=== PATIENT | male | born 1950 | race Caucasian/White ===

== ENCOUNTER → 2019-02-11 | Day surgery (SDC) | payer OTHER ==
--- NOTE | 2019-02-09 16:17 | RAD REPORT ---
EXAM DESCRIPTION: RAD - Chest Pa And Lat (2 Views) - 02/09/2019 4:10 pm CLINICAL HISTORY: Preop chest, pending soft tissue wound treatment COMPARISON: None. TECHNIQUE: PA and lateral views of the chest were obtained. FINDINGS: The lungs are clear of a peripheral mass or consolidation. Interstitial markings are promi nent suspected to be baseline. No comparison is available. Left hemidiaphragm elevation is present. Heart size is normal and central vasculature is within normal limits. No pleural effusion or pneumot horax seen. No acute bony finding noted. No aortic abnormality. IMPRESSION: Prominent interstitial pattern throughout the lung wise most likely chronic interstiti al lung disease. No focal mass or consolidation.
[2019-02-09 16:20] LABS: Absolute Lymphocytes (CBC) 1.9 K/uL (0.7-4.9); Basophils % 0.4 % (0-1.3); Hematocrit 46.7 % (39.6-49.0); Lymphocytes % 26.9 % (15.3-44.8); MPV 7.7 fL (7.6-11.3); RBC Red Blood Cell Count 5.28 M/uL (4.33-5.43)
[2019-02-09 16:48] LABS: Potassium 4.2 mmol/L (3.5-5.1)
--- NOTE | 2019-02-10 09:21 | EKG ---
Test Date: 2019-02-09 Test Time: 16:37:44 Loss Prevention Associate: KIMBERLY MEASUREMENT RESULTS: Intervals: Rate: 71 TN: 138 QRSD: 86 QT: 356 QTc: 386 [place]: P: 69 TN: 138 QRS: 60 T: 66 INTERPRETIVE STATEMENTS: Normal sinus rhythm Normal ECG No previous ECG available for comparison Electronically Signed On 02-10-19 09:21:19 CDT by Zaheer Knott
[~2019-02-11] MED LIST: CEFAZOLIN/SWI 1gm 1 GM/10 ML SYR ONE; COLLAGENASE 30 GM OINTMENT TOP ONE; EPHEDRINE SULF 50 MG/ML VIAL ONE; FENTANYL CITR 100 MCG/2 ML ONE; GLYCOPYRROLATE 0.2 MG/ML SYR ONE; HYDROCODONE/APAP 7.5/325 MG TAB ONE; HYDROCODONE/APAP 7.5/325 MG TAB PO ONE; LIDOCAINE 1% MPF 5 ML VIAL ONE; MIDAZOLAM HCL 2 MG/2 ML INJ ONE; NEOSTIGMINE 1 MG/ML -10 ML VIAL ONE; PROPOFOL 200 MG/20 ML VIAL IV ONE; ROCURONIUM 50 MG/5 ML VIAL IV ONE; Ringers Lactate 1,000 ML IV ONE
--- NOTE | 2019-02-11 21:14 | OP ---
Date of Procedure: 02/11/2019 Surgeon: Charlie Arellano MD Preoperative Diagnosis: Nonhealing wound, sacrum. Postoperative Diagnosis: Nonhealing wound, sacrum. Procedure: Wide excision of nonhealing wound, sacrum, 5 x 3 cm, with layered closure. Length of the closure was 5 cm. Estimated Blood Loss: Minimal. Specimen: Nonhealing wound following as above. Anesthesia: General. Complications: None. Patient tolerated the procedure in stable condition and taken to Recovery in good general condition. Description Of Procedure: Patient was brought to the OR and placed in supine position. General anes thesia was begun. Patient was placed in the prone position. Prepped and draped in usual sterile fas hion. Then, 15 blade was used to make a 5 x 3 cm incision to excise this nonhealing wound on the lef t side of the sacrum. Excised down to the deep subcutaneous tissue and sent to Pathology as specimen . Wound irrigated. Bleeding controlled with cautery. Flaps created and 2-0 chromic used for subcut aneous tissue and 3-0 nylon was used to close the skin. Sterile dressing was applied. Patient was a wakened and taken to Recovery in good general condition. Discharge Note: Patient will go to Day Surgery, then home when stable. Disposition: Home. Condition: Stable. Discharge Instructions: Resume home medications and diet. Activity as tolerated. No heavy lifting. Remove outer dressing in 2 days. Shower. Keep wound clean and dry. Follow up in [facility] 1 week. Call for appointment. Tylenol No. 3 one tablet p.o. q.4 p.r.n. pain, Keflex 500 mg p.o . q.6. /MODL Voice ID: [id number] Report ID: [id number]
== END ==
LOC: OR 06:20
PROVIDERS: ATTEND Surgery
PROC: 0JQ90ZZ Repair Buttock Subcutaneous Tissue and Fascia, Open Approach (ICD-10-PCS; 2019-02-11)
PROC: 0JB90ZX Excision of Buttock Subcutaneous Tissue and Fascia, Open Approach, Diagnostic (ICD-10-PCS; principal; 2019-02-11 07:30)
DX: S31.000A Unspecified open wound of lower back and pelvis without penetration into retroperitoneum, initial encounter (principal); X58.XXXA Exposure to other specified factors, initial encounter; L57.0 Actinic keratosis; L85.9 Epidermal thickening, unspecified; L90.5 Scar conditions and fibrosis of skin
CPT/HCPCS: 11403; 12032; 93005; 85025; 80048; 36415; 88304; 71046; J2704; J2710; J2250; J3010; J0690; J3590

== ENCOUNTER 2019-06-28 15:48 | Inpatient (IN) | payer OTHER ==
--- OUTSIDE RECORDS SUMMARY | 2019-06-28 15:54 | XMS REPORT ---
:1950 [facility] [address] [place] [address] Care Team Providers Name Role Phone ADDY STEELE Unavailable Unavailable Payers Payer Name Policy Type Policy Number Effective Date Expiration Date Problems This patient has no known problems. Allergies, Adverse Reactions, Alerts Allergy Allergy Status Severity Reaction(s) Onset Inactive Treating Comments Name Type Date Date Clinician No Known DA Active U 2018-10 Allergies -08 00:00:0 0 No Known DA Active U 2018-06 Allergies -16 00:00:0 0 No Known DA Active U 2017-02 Allergies - 00:00:0 0 Medications This patient has no known medications. Results Test Description Test Time Test Comments Text Results Atomic Results Result Comments BASIC METABOLIC PANEL 2019-06-14 08:05:00 Test Item Value Reference Range Comments SODIUM (test code=NA) 141 mEq/L 134-147 POTASSIUM (test code=K) 3.5 mEq/L 3.4-5.0 CHLORIDE (test code=CL) 108 mEq/L 100-108 CARBON DIOXIDE (test code=CO2) 27 mEq/L 21-33 ANION GAP (test code=GAP) 10 0-20 GLUCOSE (test code=GLU) 90 mg/dL 70-110 BLOOD UREA NITROGEN (test code=BUN) 28 mg/dL 7-18 GLOMERULAR FILTRATION RATE (test 66.2 70-80 Units of measure=ml/min/1.73 code=GFR) m2 CREATININE (test code=CREAT) 1.1 mg/dL 0.6-1.3 CALCIUM (test code=CA) 8.0 mg/dL 8.0-10.5 [id number] 08:05:00 Test Item Value Reference Range Comments PHOSPHOROUS (test code=PHOS) 2.7 MG/DL 2.5-4.9 [id number] 08:05:00 Test Item Value Reference Range Comments MAGNESIUM (test code=MAG) 2.00 mg/dL 1.8-2.4 CBC W/AUTO [id number] 07:06:00 Test Item Value Reference Range Comments WHITE BLOOD CELL (test code=WBC) 10.29 x10 3/uL 4.5-11.0 RED BLOOD CELL (test code=RBC) 4.10 x10 6/uL 4.00-5.60 HEMOGLOBIN (test code=HGB) 12.2 g/dL 12.5-16.9 HEMATOCRIT (test code=HCT) 38.5 % 37.5-50.7 MEAN CELL VOLUME (test code=MCV) 93.9 fL 81.0-99.0 MEAN CELL HGB (test code=MCH) 29.8 pg 27.0-33.0 MEAN CELL HGB CONCETRATION (test code=MCHC) 31.7 g/dL 33.0-37.0 RED CELL DISTRIBUTION WIDTH CV (test 15.1 % 11.5-14.5 code=RDW) RED CELL DISTRIBUTION WIDTH SD (test 50.9 fL 37.0-54.0 code=RDW-SD) PLATELET COUNT (test code=PLT) 256 x10 3/uL 150-400 MEAN PLATELET VOLUME (test code=MPV) 10.1 fL 7.0-9.0 NEUTROPHIL % (test code=NT%) 77.3 % 56.0-77.0 IMMATURE GRANULOCYTE % (test code=IG%) 0.6 % 0.0-2.0 LYMPHOCYTE % (test code=LY%) 13.1 % 14.0-32.0 MONOCYTE % (test code=MO%) 7.8 % 4.8-9.0 EOSINOPHIL % (test code=EO%) 1.1 % 0.3-3.7 BASOPHIL % (test code=BA%) 0.1 % 0.0-2.0 NUCLEATED RBC % (test code=NRBC%) 0.0 % 0-0 NEUTROPHIL # (test code=NT#) 7.96 x10 3/uL 2.0-7.6 IMMATURE GRANULOCYTE # (test code=IG#) 0.06 x10 3/uL 0.00-0.03 LYMPHOCYTE # (test code=LY#) 1.35 x10 3/uL 1.0-3.8 MONOCYTE # (test code=MO#) 0.80 x10 3/uL 0.1-0.8 EOSINOPHIL # (test code=EO#) 0.11 x10 3/uL 0.0-0.2 BASOPHIL # (test code=BA#) 0.01 x10 3/uL 0.0-0.2 NUCLEATED RBC # (test code=NRBC#) 0.00 x10 3/uL 0.0-0.1 MANUAL DIFF REQUIRED (test code=MDIFF) NO BASIC METABOLIC [id number] 08:27:00 Test Item Value Reference Range Comments SODIUM (test code=NA) 137 mEq/L 134-147 POTASSIUM (test code=K) 4.3 mEq/L 3.4-5.0 CHLORIDE (test code=CL) 106 mEq/L 100-108 CARBON DIOXIDE (test code=CO2) 23 mEq/L 21-33 ANION GAP (test code=GAP) 12 0-20 GLUCOSE (test code=GLU) 86 mg/dL 70-110 BLOOD UREA NITROGEN (test 25 mg/dL 7-18 code=BUN) GLOMERULAR FILTRATION RATE 66.2 70-80 Units of measure=ml/min/1.73 (test code=GFR) m2 CREATININE (test code=CREAT) 1.1 mg/dL 0.6-1.3 CALCIUM (test code=CA) 8.0 mg/dL 8.0-10.5 [id number] 08:27:00 Test Item Value Reference Range Comments PHOSPHOROUS (test code=PHOS) 2.1 MG/DL 2.5-4.9 [id number] 08:27:00 Test Item Value Reference Range Comments MAGNESIUM (test code=MAG) 1.80 mg/dL 1.8-2.4 CBC W/AUTO [id number] 07:27:00 Test Item Value Reference Range Comments WHITE BLOOD CELL (test code=WBC) 11.69 x10 3/uL 4.5-11.0 RED BLOOD CELL (test code=RBC) 4.38 x10 6/uL 4.00-5.60 HEMOGLOBIN (test code=HGB) 13.1 g/dL 12.5-16.9 HEMATOCRIT (test code=HCT) 40.5 % 37.5-50.7 MEAN CELL VOLUME (test code=MCV) 92.5 fL 81.0-99.0 MEAN CELL HGB (test code=MCH) 29.9 pg 27.0-33.0 MEAN CELL HGB CONCETRATION (test code=MCHC) 32.3 g/dL 33.0-37.0 RED CELL DISTRIBUTION WIDTH CV (test 14.8 % 11.5-14.5 code=RDW) RED CELL DISTRIBUTION WIDTH SD (test 49.4 fL 37.0-54.0 code=RDW-SD) PLATELET COUNT (test code=PLT) 240 x10 3/uL 150-400 MEAN PLATELET VOLUME (test code=MPV) 10.1 fL 7.0-9.0 NEUTROPHIL % (test code=NT%) 82.5 % 56.0-77.0 IMMATURE GRANULOCYTE % (test code=IG%) 0.4 % 0.0-2.0 LYMPHOCYTE % (test code=LY%) 10.4 % 14.0-32.0 MONOCYTE % (test code=MO%) 6.2 % 4.8-9.0 EOSINOPHIL % (test code=EO%) 0.4 % 0.3-3.7 BASOPHIL % (test code=BA%) 0.1 % 0.0-2.0 NUCLEATED RBC % (test code=NRBC%) 0.0 % 0-0 NEUTROPHIL # (test code=NT#) 9.63 x10 3/uL 2.0-7.6 IMMATURE GRANULOCYTE # (test code=IG#) 0.05 x10 3/uL 0.00-0.03 LYMPHOCYTE # (test code=LY#) 1.22 x10 3/uL 1.0-3.8 MONOCYTE # (test code=MO#) 0.73 x10 3/uL 0.1-0.8 EOSINOPHIL # (test code=EO#) 0.05 x10 3/uL 0.0-0.2 BASOPHIL # (test code=BA#) 0.01 x10 3/uL 0.0-0.2 NUCLEATED RBC # (test code=NRBC#) 0.00 x10 3/uL 0.0-0.1 MANUAL DIFF REQUIRED (test code=MDIFF) NO COMPREHENSIVE METABOLIC [id number] 08:31:00 Test Item Value Reference Range Comments SODIUM (test code=NA) 139 mEq/L 134-147 POTASSIUM (test code=K) 4.0 mEq/L 3.4-5.0 CHLORIDE (test code=CL) 102 mEq/L 100-108 CARBON DIOXIDE (test code=CO2) 34 mEq/L 21-33 ANION GAP (test code=GAP) 7 0-20 GLUCOSE (test code=GLU) 84 mg/dL 70-110 BLOOD UREA NITROGEN (test 35 mg/dL 7-18 code=BUN) GLOMERULAR FILTRATION RATE 66.2 70-80 Units of (test code=GFR) measure=ml/min/1.73 m2 CREATININE (test code=CREAT) 1.1 mg/dL 0.6-1.3 TOTAL PROTEIN (test code=PROT) 5.7 g/dL 6.4-8.2 ALBUMIN (test code=ALB) 2.80 g/dL 3.4-5.0 CALCIUM (test code=CA) 8.1 mg/dL 8.0-10.5 BILIRUBIN TOTAL (test 1.0 MG/DL <1.5 code=BILT) SGOT/AST (test code=AST) 49 IUnit/L 15-37 SGPT/ALT (test code=ALT) 94 IUnit/L 15-65 ALKALINE PHOSPHATASE TOTAL 43 IUnit/L 20-125 (test code=ALKP) [id number] 08:31:00 Test Item Value Reference Range Comments PHOSPHOROUS (test code=PHOS) 2.1 MG/DL 2.5-4.9 [id number] 08:31:00 Test Item Value Reference Range Comments MAGNESIUM (test code=MAG) 2.00 mg/dL 1.8-2.4 - XR CHEST 1 [id number] 08:31:00 FAX: Flaquito Doty MD [place]: St: ADM FAX: Gregg Martinez [phone] FAX: Bhupinder Avila MD [phone] Name: YASH CLINTON [facility] Talha : 1950 Age/S: 69/M [address] [place] [address] Unit #: [id number] Loc: G.[address] [place] [address] Phys: Flaquito Doty MD Acct: [id number] Dis Date: Status: ADM IN PHONE #: [phone] Exam Date: 2018 FAX #: [phone] Reason: pneumonia EXAMS: CPT CODE: [id number] XR CHEST 1 V 23676 Patient: YASH CLINTON. : 1950; Age: 69 years; Gender: Male. MR: [id number]. Ordering physician: Flaquito Doty MD. PORTABLE CHEST AP: HISTORY: Pneumonia. COMPARISON : Chest x-ray 06/11/2019. FINDINGS: Portable frontal view of the chest was obtained. Elevation of left hemidiaphragm again noted. Emphysema is again noted. Bilateral coarse interstitial prominence also again noted, likely chronic. No infiltrate. Atherosclerotic calcification. The cardiomediastinal silhouette and pulmonary vasculature are unremarkable. The partially visualized upper abdomen is unremarkable. IMPRESSION: No infiltrate. Chronic changes as described. SL: [id number] at 0831 Reported and signed by : Luis Rojo M.D. CC: Flaquito Doty MD; Gregg Coulter MD; Bhupinder Avila MD Technologist: Freda Christianson, RT (R); Meg Suh RT(R) Trnscrd Date/Time/By: 06/12/2019 (0831) : By: [email or web address] Orig Print D/T: S: 06/12/2019 (0809) PAGE 1 Signed ReportCBC W/AUTO [id number] 07: 54:00 Test Item Value Reference Range Comments WHITE BLOOD CELL (test code=WBC) 10.35 x10 3/uL 4.5-11.0 RED BLOOD CELL (test code=RBC) 4.16 x10 6/uL 4.00-5.60 HEMOGLOBIN (test code=HGB) 12.3 g/dL 12.5-16.9 HEMATOCRIT (test code=HCT) 38.9 % 37.5-50.7 MEAN CELL VOLUME (test code=MCV) 93.5 fL 81.0-99.0 MEAN CELL HGB (test code=MCH) 29.6 pg 27.0-33.0 MEAN CELL HGB CONCETRATION (test code=MCHC) 31.6 g/dL 33.0-37.0 RED CELL DISTRIBUTION WIDTH CV (test 15.1 % 11.5-14.5 code=RDW) RED CELL DISTRIBUTION WIDTH SD (test 51.6 fL 37.0-54.0 code=RDW-SD) PLATELET COUNT (test code=PLT) 206 x10 3/uL 150-400 MEAN PLATELET VOLUME (test code=MPV) 10.3 fL 7.0-9.0 NEUTROPHIL % (test code=NT%) 76.2 % 56.0-77.0 IMMATURE GRANULOCYTE % (test code=IG%) 0.6 % 0.0-2.0 LYMPHOCYTE % (test code=LY%) 12.9 % 14.0-32.0 MONOCYTE % (test code=MO%) 9.8 % 4.8-9.0 EOSINOPHIL % (test code=EO%) 0.4 % 0.3-3.7 BASOPHIL % (test code=BA%) 0.1 % 0.0-2.0 NUCLEATED RBC % (test code=NRBC%) 0.2 % 0-0 NEUTROPHIL # (test code=NT#) 7.90 x10 3/uL 2.0-7.6 IMMATURE GRANULOCYTE # (test code=IG#) 0.06 x10 3/uL 0.00-0.03 LYMPHOCYTE # (test code=LY#) 1.33 x10 3/uL 1.0-3.8 MONOCYTE # (test code=MO#) 1.01 x10 3/uL 0.1-0.8 EOSINOPHIL # (test code=EO#) 0.04 x10 3/uL 0.0-0.2 BASOPHIL # (test code=BA#) 0.01 x10 3/uL 0.0-0.2 NUCLEATED RBC # (test code=NRBC#) 0.02 x10 3/uL 0.0-0.1 MANUAL DIFF REQUIRED (test code=MDIFF) NO [id number] 15:46:00 Test Item Value Reference Range Comments GLUBED (test code=GLUBED) 96 MG/DL 70-110 Performed by 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 [facility] THROMBOPLASTIN TIME [id number] 14:57:00 Test Item Value Reference Range Comments THROMBOPLASTIN TIME PARTIAL 64.6 Seconds 25.0-39.5 Therapeutic Range: (test code=PTT) 50.4 - 88.3 Seconds Effective 10/20/2018 - XR CHEST 1 [id number] 08:29:00 FAX: Flaquito Doty MD [place]: St: ADM FAX: Richardson HawkinslulutashaneftalyGregg [phone] FAX: Bhupinder Avila MD [phone] Name: YASH CLINTON [facility] : 1950 Age/S: 69/M [address] [place] [address] Unit #: [id number] Loc: G.[address] [address] Phys: Flaquito Doty MD Acct: [id number] Dis Date: Status: ADM IN PHONE #: [phone] Exam Date: 2018 0559 FAX #: [phone] Reason: pneumonia EXAMS: CPT CODE: [id number] XR CHEST 1 V 37918 Clinical Indication: Pneumonia. Comparison: 06/10/2019. Impression: Chest, single view. Persistent bilateral airspace opacities representing edema or pneumonia, not significantly changed since the prior exam. Cardiac silhouetteis prominent. No pleural effusion or pneumothorax. SL: [id number] at 0829 Reported and signed by: Latisha Bejarano M.D. CC: Flaquito Doty MD; Gregg Coulter MD; Bhupinder Avila MD Technologist: Neema Rosas, RT(R); Trevon Frances RT(R) Trnscrd Date/Time/By: 06/11/2019 (08) : By: [email or web address] Orig Print D/T: S: 06/11/2019 (0927) PAGE 1 Signed ReportCOMPREHENSIVE METABOLIC [id number] 07:23:00 Test Item Value Reference Range Comments SODIUM (test code=NA) 142 mEq/L 134-147 POTASSIUM (test code=K) 4.7 mEq/L 3.4-5.0 CHLORIDE (test code=CL) 105 mEq/L 100-108 CARBON DIOXIDE (test code=CO2) 32 mEq/L 21-33 ANION GAP (test code=GAP) 10 0-20 GLUCOSE (test code=GLU) 103 mg/dL 70-110 BLOOD UREA NITROGEN (test 45 mg/dL 7-18 code=BUN) GLOMERULAR FILTRATION RATE 66.2 70-80 Units of (test code=GFR) measure=ml/min/1.73 m2 CREATININE (test code=CREAT) 1.1 mg/dL 0.6-1.3 TOTAL PROTEIN (test code=PROT) 5.7 g/dL 6.4-8.2 ALBUMIN (test code=ALB) 2.80 g/dL 3.4-5.0 CALCIUM (test code=CA) 8.5 mg/dL 8.0-10.5 BILIRUBIN TOTAL (test 0.7 MG/DL <1.5 code=BILT) SGOT/AST (test code=AST) 61 IUnit/L 15-37 SGPT/ALT (test code=ALT) 106 IUnit/L 15-65 ALKALINE PHOSPHATASE TOTAL 37 IUnit/L 20-125 (test code=ALKP) [id number] 07:23:00 Test Item Value Reference Range Comments PHOSPHOROUS (test code=PHOS) 3.1 MG/DL 2.5-4.9 [id number] 07:23:00 Test Item Value Reference Range Comments MAGNESIUM (test code=MAG) 2.10 mg/dL 1.8-2.4 THROMBOPLASTIN TIME [id number] 07:11:00 Test Item Value Reference Range Comments THROMBOPLASTIN TIME PARTIAL 81.0 Seconds 25.0-39.5 Therapeutic Range: (test code=PTT) 50.4 - 88.3 Seconds Effective 10/20/2018 CBC W/AUTO [id number] 06:49:00 Test Item Value Reference Range Comments WHITE BLOOD CELL (test code=WBC) 10.16 x10 3/uL 4.5-11.0 RED BLOOD CELL (test code=RBC) 3.93 x10 6/uL 4.00-5.60 HEMOGLOBIN (test code=HGB) 11.8 g/dL 12.5-16.9 HEMATOCRIT (test code=HCT) 36.8 % 37.5-50.7 MEAN CELL VOLUME (test code=MCV) 93.6 fL 81.0-99.0 MEAN CELL HGB (test code=MCH) 30.0 pg 27.0-33.0 MEAN CELL HGB CONCETRATION (test code=MCHC) 32.1 g/dL 33.0-37.0 RED CELL DISTRIBUTION WIDTH CV (test 15.0 % 11.5-14.5 code=RDW) RED CELL DISTRIBUTION WIDTH SD (test 51.3 fL 37.0-54.0 code=RDW-SD) PLATELET COUNT (test code=PLT) 180 x10 3/uL 150-400 MEAN PLATELET VOLUME (test code=MPV) 10.7 fL 7.0-9.0 NEUTROPHIL % (test code=NT%) 83.6 % 56.0-77.0 IMMATURE GRANULOCYTE % (test code=IG%) 0.4 % 0.0-2.0 LYMPHOCYTE % (test code=LY%) 8.3 % 14.0-32.0 MONOCYTE % (test code=MO%) 7.6 % 4.8-9.0 EOSINOPHIL % (test code=EO%) 0.0 % 0.3-3.7 BASOPHIL % (test code=BA%) 0.1 % 0.0-2.0 NUCLEATED RBC % (test code=NRBC%) 0.2 % 0-0 NEUTROPHIL # (test code=NT#) 8.50 x10 3/uL 2.0-7.6 IMMATURE GRANULOCYTE # (test code=IG#) 0.04 x10 3/uL 0.00-0.03 LYMPHOCYTE # (test code=LY#) 0.84 x10 3/uL 1.0-3.8 MONOCYTE # (test code=MO#) 0.77 x10 3/uL 0.1-0.8 EOSINOPHIL # (test code=EO#) 0.00 x10 3/uL 0.0-0.2 BASOPHIL # (test code=BA#) 0.01 x10 3/uL 0.0-0.2 NUCLEATED RBC # (test code=NRBC#) 0.02 x10 3/uL 0.0-0.1 MANUAL DIFF REQUIRED (test code=MDIFF) NO [id number] 06:36:00 Test Item Value Reference Range Comments GLUBED (test code=GLUBED) 95 MG/DL 70-110 Performed by 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 [facility] [id number] 00:19:00 Test Item Value Reference Range Comments GLUBED (test code=GLUBED) 118 MG/DL 70-110 Performed by 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 [facility] THROMBOPLASTIN TIME [id number] 23:15:00 Test Item Value Reference Range Comments THROMBOPLASTIN TIME PARTIAL 81.1 Seconds 25.0-39.5 Therapeutic Range: (test code=PTT) 50.4 - 88.3 Seconds Effective 10/20/2018 [id number] 18:13:00 Test Item Value Reference Range Comments GLUBED (test code=GLUBED) 125 MG/DL 70-110 Performed by 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 [facility] THROMBOPLASTIN TIME [id number] 15:59:00 Test Item Value Reference Range Comments THROMBOPLASTIN TIME PARTIAL 79.3 Seconds 25.0-39.5 Therapeutic Range: (test code=PTT) 50.4 - 88.3 Seconds Effective 10/20/2018 - XR CHEST 1 [id number] 13:48:00 FAX: Flaquito Doty MD [place]: St: ADM FAX: Gregg Martinez [phone] FAX: Bhupinder Avila MD [phone] Name: YASH CLINTON [facility] Talha : 1950 Age/S: 69/M [address] [place] [address] Unit #: [id number] Loc: G.[address] [place] [address] Phys: Flaquito Doty MD Acct: [id number] Dis Date: Status: ADM IN PHONE #: [phone] Exam Date: 2018 1345 FAX #: [phone] Reason: pneumonia EXAMS: CPT CODE: [id number] XR CHEST 1 V 98587 Clinical Indication: Pneumonia. Comparison: 06/09/2019. CT 06/08/2019. Impression: Chest, single view. Stable position of support apparatus. Cardiac silhouette is prominent. Improved aeration of the lung bases. Right apical subpleural nodularity is similar to the prior CT. No pneumothorax. No acute osseous abnormality. SL: [id number] at 4313 Reported and signed by: Latisha Bejarano M.D. CC: Flaquito Doty MD; Gregg Lara MD; Bhupinder Avila MD Technologist: RT Hallie(R) Trnscrd Date/Time/By: 11/2018 (0341) : By: [email or web address] Orig Print D/T: S: 06/10/2019 (5947) PAGE 1 Signed [id number] 12:30:00 Test Item Value Reference Range Comments GLUBED (test code=GLUBED) 142 MG/DL 70-110 Performed by 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 [facility] THROMBOPLASTIN TIME [id number] 08:27:00 Test Item Value Reference Range Comments THROMBOPLASTIN TIME PARTIAL 49.1 Seconds 25.0-39.5 Therapeutic Range: (test code=PTT) 50.4 - 88.3 Seconds Effective 10/20/2018 BASIC METABOLIC [id number] 04:59:00 Test Item Value Reference Range Comments SODIUM (test code=NA) 138 mEq/L 134-147 POTASSIUM (test code=K) 4.7 mEq/L 3.4-5.0 CHLORIDE (test code=CL) 104 mEq/L 100-108 CARBON DIOXIDE (test code=CO2) 30 mEq/L 21-33 ANION GAP (test code=GAP) 9 0-20 GLUCOSE (test code=GLU) 158 mg/dL 70-110 BLOOD UREA NITROGEN (test 46 mg/dL 7-18 code=BUN) GLOMERULAR FILTRATION RATE 54.6 70-80 Units of measure=ml/min/1.73 (test code=GFR) m2 CREATININE (test code=CREAT) 1.3 mg/dL 0.6-1.3 CALCIUM (test code=CA) 8.5 mg/dL 8.0-10.5 [id number] 04:59:00 Test Item Value Reference Range Comments PHOSPHOROUS (test code=PHOS) 3.0 MG/DL 2.5-4.9 [id number] 04:59:00 Test Item Value Reference Range Comments MAGNESIUM (test code=MAG) 2.20 mg/dL 1.8-2.4 CBC W/AUTO [id number] 04:48:00 Test Item Value Reference Range Comments WHITE BLOOD CELL (test code=WBC) 9.37 x10 3/uL 4.5-11.0 RED BLOOD CELL (test code=RBC) 4.12 x10 6/uL 4.00-5.60 HEMOGLOBIN (test code=HGB) 12.1 g/dL 12.5-16.9 HEMATOCRIT (test code=HCT) 38.3 % 37.5-50.7 MEAN CELL VOLUME (test code=MCV) 93.0 fL 81.0-99.0 MEAN CELL HGB (test code=MCH) 29.4 pg 27.0-33.0 MEAN CELL HGB CONCETRATION (test code=MCHC) 31.6 g/dL 33.0-37.0 RED CELL DISTRIBUTION WIDTH CV (test code=RDW) 14.8 % 11.5-14.5 RED CELL DISTRIBUTION WIDTH SD (test 50.3 fL 37.0-54.0 code=RDW-SD) PLATELET COUNT (test code=PLT) 194 x10 3/uL 150-400 MEAN PLATELET VOLUME (test code=MPV) 10.3 fL 7.0-9.0 NEUTROPHIL % (test code=NT%) 90.6 % 56.0-77.0 IMMATURE GRANULOCYTE % (test code=IG%) 0.5 % 0.0-2.0 LYMPHOCYTE % (test code=LY%) 4.7 % 14.0-32.0 MONOCYTE % (test code=MO%) 4.1 % 4.8-9.0 EOSINOPHIL % (test code=EO%) 0.0 % 0.3-3.7 BASOPHIL % (test code=BA%) 0.1 % 0.0-2.0 NUCLEATED RBC % (test code=NRBC%) 0.2 % 0-0 NEUTROPHIL # (test code=NT#) 8.49 x10 3/uL 2.0-7.6 IMMATURE GRANULOCYTE # (test code=IG#) 0.05 x10 3/uL 0.00-0.03 LYMPHOCYTE # (test code=LY#) 0.44 x10 3/uL 1.0-3.8 MONOCYTE # (test code=MO#) 0.38 x10 3/uL 0.1-0.8 EOSINOPHIL # (test code=EO#) 0.00 x10 3/uL 0.0-0.2 BASOPHIL # (test code=BA#) 0.01 x10 3/uL 0.0-0.2 NUCLEATED RBC # (test code=NRBC#) 0.02 x10 3/uL 0.0-0.1 MANUAL DIFF REQUIRED (test code=MDIFF) NO THROMBOPLASTIN TIME [id number] 00:55:00 Test Item Value Reference Range Comments THROMBOPLASTIN TIME PARTIAL 51.3 Seconds 25.0-39.5 Therapeutic Range: (test code=PTT) 50.4 - 88.3 Seconds Effective 10/20/2018 [id number] 00:27:00 Test Item Value Reference Range Comments GLUBED (test code=GLUBED) 124 MG/DL 70-110 Performed by 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 [facility] - XR CHEST 1 [id number] 07:27:00 FAX: Gregg Martinez [place]: St: [facility] FAX: David See [phone] FAX : Bhupinder Avila MD [phone] Name: YASH CLINTON [facility] : 1950 Age/S: 69/M [address] [place] [address] Unit #: [id number] Loc: G.[address] [place] [address] Phys: Miroslava See NP Acct: [id number] Dis Date: Status: ADM IN PHONE #: [phone] Exam Date: 06/09 FAX #: [phone] Reason: RESP FAILURE EXAMS: CPT CODE: [id number] XR CHEST 1 V 36346 1 VIEW CXR. PORTABLE EXAM 5:13 AM HISTORY: Respiratory failure. Shortness of breath. Ventilator patient. COMPARISON: Yesterdays chest X-RAY. Endotracheal tube, NG tube and right IJ central line all stable and apparently well-positioned. Significant improvement in aeration of the right lung compared to yesterday. Mild prominence of pulmonary vessels bilaterally mild persistent interstitial prominence right mid to lower lung. Cardiomediastinal silhouette stable. Bones intact. No definite pleural effusion evident. IMPRESSION: Improving chest at a one day interval. END OF IMPRESSION SL: [id number] at 0727 Reported and signed by: Jenaro Mcclelland M.D. CC: Gregg Coulter MD; Miroslava See STONE SPLITTER; Bhupinder Avila MD Technologist: Neema Rosas RT(Mark) Trnscrd Date/Time/By: 06/09/2019 (0773) : By: Moses Orig Print D/T: S: 06/09/2019 (0718) PAGE 1 Signed ReportARTERIAL BLOOD [id number] 06:32:00 Test Item Value Reference Range Comments ARTERIAL BLOOD GAS PH (test 7.499 7.35-7.45 code=PHA) ARTERIAL BLOOD GAS PCO2 (test 41.6 mmHg 35-45 code=PCO2A) ARTERIAL BLOOD GAS PO2 (test 98 mmHg 80-100 code=PO2A) BICARBONATE TOTAL HCO3 (test 32.8 mmol/L 22.0-26.0 code=HCO3) BASE EXCESS (test code=JACQUELIN) 9.0 mmol/L -4-4 ABG O2 SATURATION (test 98 % 90-100 code=SATA) FIO2 (test code=FIO2A) 40 % ABG DELIVERY (test code=TERRI) Vent ABG VENT MODE (test AC v con code=MODEA) ABG VENT RESP RATE (test 25 /MIN code=RRA) ABG TIDAL VOLUME (test 500 ml code=TVA) ABG PEEP (test code=PEEPA) 5 cmH2O Performed by 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 [facility] ABG TEMPERATURE (test 96.0 F code=TEMPA) ABG SITE (test code=SITEA) L Rad PREDICTED AA GRADIENT (test 61 code=AP) PREDICTED PO2 (test code=OP) 174 a/A RATIO (test code=RATIO) 0.42 TCO2 ARTERIAL (test 34 code=TCO2A) A-A GRADIENT (test 137 code=AAGRADE) BASIC METABOLIC [id number] 04:54:00 Test Item Value Reference Range Comments SODIUM (test code=NA) 137 mEq/L 134-147 POTASSIUM (test code=K) 4.5 mEq/L 3.4-5.0 CHLORIDE (test code=CL) 102 mEq/L 100-108 CARBON DIOXIDE (test code=CO2) 28 mEq/L 21-33 ANION GAP (test code=GAP) 12 0-20 GLUCOSE (test code=GLU) 178 mg/dL 70-110 BLOOD UREA NITROGEN (test 46 mg/dL 7-18 code=BUN) GLOMERULAR FILTRATION RATE 46.3 70-80 Units of measure=ml/min/1.73 (test code=GFR) m2 CREATININE (test code=CREAT) 1.5 mg/dL 0.6-1.3 CALCIUM (test code=CA) 8.4 mg/dL 8.0-10.5 [id number] 04:54:00 Test Item Value Reference Range Comments PHOSPHOROUS (test code=PHOS) 3.0 MG/DL 2.5-4.9 [id number] 04:54:00 Test Item Value Reference Range Comments MAGNESIUM (test code=MAG) 2.50 mg/dL 1.8-2.4 CALCIUM [id number] 04:54:00 Test Item Value Reference Range Comments CALCIUM IONIZED (test code=JOSH) 1.15 MMOL/L 1.12-1.32 BASIC METABOLIC [id number] 04:34:00 Test Item Value Reference Range Comments SODIUM (test code=NA) mEq/L 134-147 POTASSIUM (test code=K) mEq/L 3.4-5.0 CHLORIDE (test code=CL) mEq/L 100-108 CARBON DIOXIDE (test code=CO2) mEq/L 21-33 ANION GAP (test code=GAP) 0-20 GLUCOSE (test code=GLU) mg/dL 70-110 BLOOD UREA NITROGEN (test code=BUN) mg/dL 7-18 GLOMERULAR FILTRATION RATE (test code=GFR) 70-80 CREATININE (test code=CREAT) mg/dL 0.6-1.3 CALCIUM (test code=CA) mg/dL 8.0-10.5 [id number] 04:34:00 Test Item Value Reference Range Comments PHOSPHOROUS (test code=PHOS) MG/DL 2.5-4.9 [id number] 04:34:00 Test Item Value Reference Range Comments MAGNESIUM (test code=MAG) mg/dL 1.8-2.4 CALCIUM [id number] 04:34:00 Test Item Value Reference Range Comments CALCIUM IONIZED (test code=JOSH) 1.15 MMOL/L 1.12-1.32 THROMBOPLASTIN TIME [id number] 04:24:00 Test Item Value Reference Range Comments THROMBOPLASTIN TIME PARTIAL 84.3 Seconds 25.0-39.5 Therapeutic Range: (test code=PTT) 50.4 - 88.3 Seconds Effective 10/20/2018 CBC W/AUTO [id number] 04:12:00 Test Item Value Reference Range Comments WHITE BLOOD CELL (test code=WBC) 7.84 x10 3/uL 4.5-11.0 RED BLOOD CELL (test code=RBC) 4.05 x10 6/uL 4.00-5.60 HEMOGLOBIN (test code=HGB) 12.1 g/dL 12.5-16.9 HEMATOCRIT (test code=HCT) 37.3 % 37.5-50.7 MEAN CELL VOLUME (test code=MCV) 92.1 fL 81.0-99.0 MEAN CELL HGB (test code=MCH) 29.9 pg 27.0-33.0 MEAN CELL HGB CONCETRATION (test code=MCHC) 32.4 g/dL 33.0-37.0 RED CELL DISTRIBUTION WIDTH CV (test code=RDW) 15.0 % 11.5-14.5 RED CELL DISTRIBUTION WIDTH SD (test 49.5 fL 37.0-54.0 code=RDW-SD) PLATELET COUNT (test code=PLT) 188 x10 3/uL 150-400 MEAN PLATELET VOLUME (test code=MPV) 10.6 fL 7.0-9.0 NEUTROPHIL % (test code=NT%) 90.7 % 56.0-77.0 IMMATURE GRANULOCYTE % (test code=IG%) 0.3 % 0.0-2.0 LYMPHOCYTE % (test code=LY%) 4.7 % 14.0-32.0 MONOCYTE % (test code=MO%) 4.3 % 4.8-9.0 EOSINOPHIL % (test code=EO%) 0.0 % 0.3-3.7 BASOPHIL % (test code=BA%) 0.0 % 0.0-2.0 NUCLEATED RBC % (test code=NRBC%) 0.3 % 0-0 NEUTROPHIL # (test code=NT#) 7.11 x10 3/uL 2.0-7.6 IMMATURE GRANULOCYTE # (test code=IG#) 0.02 x10 3/uL 0.00-0.03 LYMPHOCYTE # (test code=LY#) 0.37 x10 3/uL 1.0-3.8 MONOCYTE # (test code=MO#) 0.34 x10 3/uL 0.1-0.8 EOSINOPHIL # (test code=EO#) 0.00 x10 3/uL 0.0-0.2 BASOPHIL # (test code=BA#) 0.00 x10 3/uL 0.0-0.2 NUCLEATED RBC # (test code=NRBC#) 0.02 x10 3/uL 0.0-0.1 MANUAL DIFF REQUIRED (test code=MDIFF) NO [id number] 00:11:00 Test Item Value Reference Range Comments GLUBED (test code=GLUBED) 168 MG/DL 70-110 Performed by 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 [facility] THROMBOPLASTIN TIME [id number] 20:39:00 Test Item Value Reference Range Comments THROMBOPLASTIN TIME PARTIAL 58.1 Seconds 25.0-39.5 Therapeutic Range: (test code=PTT) 50.4 - 88.3 Seconds Effective 10/20/2018 THROMBOPLASTIN TIME [id number] 13:17:00 Test Item Value Reference Range Comments THROMBOPLASTIN TIME PARTIAL 48.6 Seconds 25.0-39.5 Therapeutic Range: (test code=PTT) 50.4 - 88.3 Seconds Effective 10/20/2018 - XR CHEST 1 [id number] 07:24:00 FAX: Gregg Martinez [place]: St: ADM FAX: Bhupinder Avila MD [phone] FAX : Krissy Espana MD Name: YASH CLINTON [facility] [place] : 1950 Age/S: 69/M [address] [place] [address] Unit #: [id number] Loc: G.[address] [address] Phys: Krissy Espana MD Acct: [id number] Dis Date: Status: ADM IN PHONE #: [phone] Exam Date: 06/08 0414 FAX #: [phone] Reason: VENTED PATIENT, FOLLOW- UP EXAMS: CPT CODE: [id number] XR CHEST 1 V 38645 EXAM: CHEST SINGLE VIEW HISTORY: 69-year-old male, ventilated COMPARISON: Chest 06/07/2019 FINDINGS: Increased opacity in the right lung base. Diffuse bilateral interstitial prominence. Probable small right pleural effusion. Elevated left hemidiaphragm. The cardiomediastinal silhouette isstable. Osseous structures are unchanged. Stable position of endotracheal tube, nasogastric tube, and right internal jugular dialysis catheter. IMPRESSION: 1. Increased right basilar opacity. 2. Small right pleural effusion. 3. Bilateral interstitial prominence suggestive of congestion/mild edema. SL: [id number] at 0724 Reported and signed by: Nile Espitia M.D. CC: Gregg Coulter MD; Bhupinder Avila MD; Krissy Espana MD Technologist: Trevon Frances RT(R) Trnscrd Date/Time/By: 09/2018 (0724) : By: [email or web address] Orig Print D/T: S: 06/08/2019 (0727) PAGE 1 Signed ReportACUTE HEPATITIS [id number] 07:12:00 Test Item Value Reference Range Comments AB HEPATITIS A IGM (test code=HAVMAB) NON REACTIVE INDEX NON REACT. AG HEPATITIS B SURFACE (test code=HBSAG) NON REACTIVE INDEX NonReactive AB HEPATITIS B CORE IGM (test NON REACTIVE INDEX NON REACT. code=HBCMAB) AB HEPATITIS C (test code=HCVAB) NON REACTIVE INDEX NON REACT. COMMENTS: At start of hemodialysisAB HEPATITIS B [id number] 07:12:00 Test Item Value Reference Range Comments AB HEPATITIS B SURFACE (test < 3.1 mIU/mL Immunity>9.9 Status of Immunity code=HBSAB) Anti-HBs Level Inconsistent with Immunity 0.0 - 9.9Consistent with Immunity >9.9Performed At: [facility] [id number] [place], [place] [id number] Nilson Aguilar MD Ph:[phone] COMMENTS: At start of hemodialysis- CT ABD PELVIS W/O [id number] 06:02:00 Name: YASH CLINTON [facility] Rachel Benton : 1950 Age/S: 69 / M [address] [place] [address] Blvd Unit #: [id number] Loc: [facility] [id number] Phys: Krissy Espana MD Acct: [id number] Dis Date: Status: ADM IN PHONE #: [phone] Exam Date: 06/08/2019 050 FAX #: [phone] Reason: IRREGULAR CXR EXAMS: CPTCODE: [id number] CT ABD PELVIS W/O CONT 06573 EXAM: CT, CT CHEST ABDOMEN AND PELVIS W/O CONTRAST: 06/08/2019, 0449 hours Clinical Indication: Shortness of breath. COPD. Atrial fibrillation with RVR. Comparison: None TECHNIQUE: Sequential trans-axial images were obtained thru the chest, abdomen and pelvis without iodinated oral or IV contrast. Coronal and sagittal reconstructions wereobtained. CT imaging was performed with exposure control parameters to reduce radiation dose. All CT scans at this location are performed using dose optimization techniques as appropriate to perform exam including the following: * Automated exposure control * Adjustmentof the mA and /or kV according to patient size (this includes techniques or standardized protocols for targeted exams where dose is matched to indication/reason for exam; extremities or head) * Use of iterative reconstruction technique DLP: 859.22 mGy-cmFINDINGS: CT CHEST WITHOUT: LUNG PARENCHYMA AND PLEURA: Emphysematous changes in the lungs bilaterally with prominent interstitial lung markings. Pleural base opacity in the right apical lung anteriorly probable scar. Bilateral lower lobe airspace opacities, worse in the right with small trace pleural effusions. Calcified granuloma in the left lower lobe. There is no pneumothorax. AIRWAYS: The central airway is unremarkable. Endotracheal intubation place, tip at solo. Nasogastric tube in esophagus, tip in stomach.. NON-CONTRAST MEDIASTINUM: Ectatic thoracic aorta. Calcified plaques in the thoracic aorta and coronary arteries. Heart is borderline in size. A right IJ venous catheter in place, tip in right atrium. OSSEOUS STRUCTURES: No acute abnormality seen. VISUALIZED NON-CONTRAST LOWER NECK: No gross abnormalities. CT ABDOMEN PELVIS WITHOUT: NON- CONTRAST ENHANCED SOLID ORGANS: PAGE 1 Signed Report (CONTINUED) Name: YASH CLINTON [facility] Rachel Benton : 1950ge/S: 69 / M [address] [place] [address] Blvd Unit #: [id number] Loc: [place] [address] Phys: Krissy Espana MD Acct: [id number] Dis Date: Status: ADM IN PHONE#: [phone] Exam Date: 06/08/2019 050 FAX #: [phone] Reason:IRREGULAR CXR EXAMS: CPT CODE: [id number] CT ABD PELVIS W/O CONT 16566 <Continued> LIVER: Unremarkable. GALLBLADDER: Sludge and stone in the gallbladder. INTRAHEPATIC BILE DUCT AND EXTRAHEPATIC BILE DUCT: Unremarkable. PANCREAS: Unremarkable. SPLEEN: Unremarkable. ADRENALS: Nonspecific nodularity of the left adrenal gland..KIDNEYS: No urinary calculi, hydronephrosis or perinephric stranding. 3.2 cm cyst midpole of the left kidney. NON-CONTRAST OPACIFIED STOMACH AND BOWEL: STOMACH: Unremarkable. BOWEL: The small bowel loops in the abdomen and pelvis appear unremarkable. The colonic loops in the abdomen and pelvis appear unremarkable. APPENDIX: Not seen on the exam. PERITONEUM AND RETROPERITONEUM: Small perihepatic and perisplenic ascites. 2 asymmetric densities in the lower flank and pelvis. No free air. No other fluid collection.There is no aortic aneurysm seen on the non- contrast exam. Calcified plaques in the abdominal aorta and iliac arteries. LYMPH NODES: Unremarkable. PELVIS: No pelvic mass or adenopathy. BLADDER: A Kent's catheter in the urinary bladder with small air and slightly dense material the nondistended urinary bladder. Enlarged prostate. OSSEOUS STRUCTURES: No acute abnormality seen. Degenerative changes in thoracolumbar spine SOFT TISSUES : Body wall edema. IMPRESSION: 1. Bilaterallower lobe opacities, worse on the right with trace bilateral pleural effusion, most likely due to infectious or inflammatory process. Pleural-based opacity in the right upper lobe may represent scar or atelectasis. Underlying changes of COPD. 2. Sludge and stones inthe gallbladder. 3. Small volume ascites. PAGE 2 Signed Report (CONTINUED) [facility] 1950 Age/S: 69 / M [address] [place] [address] Unit #: [id number] Loc: [place] [address] Phys: Krissy Espana MD Acct : [id number] Dis Date: Status: ADM IN PHONE #: [phone] Exam Date: 06/08/2019501 FAX #: [phone] Reason: IRREGULAR CXR EXAMS: CPT CODE: [id number] CT ABD PELVIS W/O CONT 24695 <Continued> 4. Atherosclerosis. 5. Enlarged prostate. Nondistended urinary bladder with Kent's catheter and small intraluminal air. Small slightly dense urinary in the urinary bladder. Please correlate with labs. 6. Body wall edema. 7. Tip of endotracheal tube at solo. Tip of the right IJ venous catheter in the right atrium. Tip of the nasogastric tube in gastric fundus. SL: ANGÉLICAH at 0602 Reported and signed by: Mio Land M.D. CC: Gregg Coulter MD; Bhupinder Avila MD; Krissy Espana MD Technologist: Rosaura Whitehead, RT(R) CTDI: DLP: Trnscb Date/Time: 06/08 (601) [email or web address] Orig Print D/T: S: 06/08/2019 ( 06) PAGE 3 Signed Report- CT CHEST W/O [id number] 06:02:00 Name: YASH CLINTON [facility] : 1950 Age/S: 69 / M [address] [place] [address] Unit #: [id number] Loc: [place], QL[address]179 Phys: Krissy Espana MD Acct: [id number] Dis Date: Status: ADM IN PHONE #: [phone] Exam Date: 06/08/2019501 FAX #: [phone] Reason: IRREGULAR CXR EXAMS: CPTCODE: [id number] CT CHEST W/O CONTRAST 45465 EXAM: CT, CT CHEST ABDOMEN AND PELVIS W/O CONTRAST: 06/08/2019, 0449 hours Clinical Indication: Shortness of breath. COPD. Atrial fibrillation with RVR. Comparison: None TECHNIQUE: Sequential trans-axial images were obtained thru the chest, abdomen and pelvis without iodinated oral or IV contrast. Coronal and sagittal reconstructions wereobtained. CT imaging was performed with exposure control parameters to reduce radiation dose. All CT scans at this location are performed using dose optimization techniques as appropriate to perform exam including the following: * Automated exposure control * Adjustmentof the mA and /or kV according to patient size (this includes techniques or standardized protocols for targeted exams where dose is matched to indication/reason for exam; extremities or head) * Use of iterative reconstruction technique DLP: 859.22 mGy-cmFINDINGS: CT CHEST WITHOUT: LUNG PARENCHYMA AND PLEURA: Emphysematous changes in the lungs bilaterally with prominent interstitial lung markings. Pleural base opacity in the right apical lung anteriorly probable scar. Bilateral lower lobe airspace opacities, worse in the right with small trace pleural effusions. Calcified granuloma in the left lower lobe. There is no pneumothorax. AIRWAYS: The central airway is unremarkable. Endotracheal intubation place, tip at solo. Nasogastric tube in esophagus, tip in stomach.. NON-CONTRAST MEDIASTINUM: Ectatic thoracic aorta. Calcified plaques in the thoracic aorta and coronary arteries. Heart is borderline in size. A right IJ venous catheter in place, tip in right atrium. OSSEOUS STRUCTURES: No acute abnormality seen. VISUALIZED NON-CONTRAST LOWER NECK: No gross abnormalities. CT ABDOMEN PELVIS WITHOUT: NON- CONTRAST ENHANCED SOLID ORGANS: PAGE 1 Signed Report (CONTINUED) Name: YASH CLINTON [facility] : 1950ge/S: 69 / M [address] [place] [address] Unit #: [id number] Loc: [place] [address] Phys: Krissy Espana MD Acct: [id number] Dis Date: Status: ADM IN PHONE#: [phone] Exam Date: 06/08/2019 0502 FAX #: [phone] Reason:IRREGULAR CXR EXAMS: CPT CODE: [id number] CT CHEST W/O CONTRAST 23051 <Continued> LIVER: Unremarkable. GALLBLADDER: Sludge and stone in the gallbladder. INTRAHEPATIC BILE DUCT AND EXTRAHEPATIC BILE DUCT: Unremarkable. PANCREAS: Unremarkable. SPLEEN: Unremarkable. ADRENALS: Nonspecific nodularity of the left adrenal gland..KIDNEYS: No urinary calculi, hydronephrosis or perinephric stranding. 3.2 cm cyst midpole of the left kidney. NON-CONTRAST OPACIFIED STOMACH AND BOWEL: STOMACH: Unremarkable. BOWEL: The small bowel loops in the abdomen and pelvis appear unremarkable. The colonic loops in the abdomen and pelvis appear unremarkable. APPENDIX: Not seen on the exam. PERITONEUM AND RETROPERITONEUM: Small perihepatic and perisplenic ascites. 2 asymmetric densities in the lower flank and pelvis. No free air. No other fluid collection.There is no aortic aneurysm seen on the non- contrast exam. Calcified plaques in the abdominal aorta and iliac arteries. LYMPH NODES: Unremarkable. PELVIS: No pelvic mass or adenopathy. BLADDER: A Kent's catheter in the urinary bladder with small air and slightly dense material the nondistended urinary bladder. Enlarged prostate. OSSEOUS STRUCTURES: No acute abnormality seen. Degenerative changes in thoracolumbar spine SOFT TISSUES : Body wall edema. IMPRESSION: 1. Bilaterallower lobe opacities, worse on the right with trace bilateral pleural effusion, most likely due to infectious or inflammatory process. Pleural-based opacity in the right upper lobe may represent scar or atelectasis. Underlying changes of COPD. 2. Sludge and stones inthe gallbladder. 3. Small volume ascites. PAGE 2 Signed Report (CONTINUED) Name: YASH CLINTON [facility] : 1950 Age/S: 69 / M [address] [place], [place] [address] Unit #: [id number] Loc: [place] [address] Phys: Krissy Espana MD Acct : [id number] Dis Date: Status: ADM IN PHONE #: [phone] Exam Date: 06/08/2019 0502 FAX #: [phone] Reason: IRREGULAR CXR EXAMS: CPT CODE: [id number] CT CHEST W/O CONTRAST 51990 <Continued> 4. Atherosclerosis. 5. Enlarged prostate. Nondistended urinary bladder with Kent's catheter and small intraluminal air. Small slightly dense urinary in the urinary bladder. Please correlate with labs. 6. Body wall edema. 7. Tip of endotracheal tube at solo. Tip of the right IJ venous catheter in the right atrium. Tip of the nasogastric tube in gastric fundus. SL: MYRTLE at 0602 Reported and signed by: Mio Land M.D. CC: Gregg Coulter MD; Bhupinder Avila MD; Krissy Espana MD Technologist: RT Kaylynn(R) CTDI: DLP: Trnscb Date/Time: 06/08 (06) [email or web address] Orig Print D/T: S: 06/08/2019 ( 604) PAGE 3 Signed ReportBASIC METABOLIC [id number] 04:51:00 Test Item Value Reference Range Comments SODIUM (test code=NA) 135 mEq/L 134-147 POTASSIUM (test code=K) 3.9 mEq/L 3.4-5.0 CHLORIDE (test code=CL) 101 mEq/L 100-108 CARBON DIOXIDE (test code=CO2) 26 mEq/L 21-33 ANION GAP (test code=GAP) 12 0-20 GLUCOSE (test code=GLU) 132 mg/dL 70-110 BLOOD UREA NITROGEN (test 44 mg/dL 7-18 code=BUN) GLOMERULAR FILTRATION RATE 37.5 70-80 Units of measure=ml/min/1.73 (test code=GFR) m2 CREATININE (test code=CREAT) 1.8 mg/dL 0.6-1.3 CALCIUM (test code=CA) 7.7 mg/dL 8.0-10.5 [id number] 04:51:00 Test Item Value Reference Range Comments PHOSPHOROUS (test code=PHOS) 4.6 MG/DL 2.5-4.9 [id number] 04:51:00 Test Item Value Reference Range Comments MAGNESIUM (test code=MAG) 2.50 mg/dL 1.8-2.4 THROMBOPLASTIN TIME [id number] 04:47:00 Test Item Value Reference Range Comments THROMBOPLASTIN TIME PARTIAL 47.6 Seconds 25.0-39.5 Therapeutic Range: (test code=PTT) 50.4 - 88.3 Seconds Effective 10/20/2018 CBC W/AUTO [id number] 04:37:00 Test Item Value Reference Range Comments WHITE BLOOD CELL (test code=WBC) 8.11 x10 3/uL 4.5-11.0 RED BLOOD CELL (test code=RBC) 3.81 x10 6/uL 4.00-5.60 HEMOGLOBIN (test code=HGB) 11.7 g/dL 12.5-16.9 HEMATOCRIT (test code=HCT) 35.9 % 37.5-50.7 MEAN CELL VOLUME (test code=MCV) 94.2 fL 81.0-99.0 MEAN CELL HGB (test code=MCH) 30.7 pg 27.0-33.0 MEAN CELL HGB CONCETRATION (test code=MCHC) 32.6 g/dL 33.0-37.0 RED CELL DISTRIBUTION WIDTH CV (test code=RDW) 14.9 % 11.5-14.5 RED CELL DISTRIBUTION WIDTH SD (test 50.4 fL 37.0-54.0 code=RDW-SD) PLATELET COUNT (test code=PLT) 198 x10 3/uL 150-400 MEAN PLATELET VOLUME (test code=MPV) 10.3 fL 7.0-9.0 NEUTROPHIL % (test code=NT%) 93.2 % 56.0-77.0 IMMATURE GRANULOCYTE % (test code=IG%) 0.4 % 0.0-2.0 LYMPHOCYTE % (test code=LY%) 3.3 % 14.0-32.0 MONOCYTE % (test code=MO%) 3.0 % 4.8-9.0 EOSINOPHIL % (test code=EO%) 0.0 % 0.3-3.7 BASOPHIL % (test code=BA%) 0.1 % 0.0-2.0 NUCLEATED RBC % (test code=NRBC%) 0.0 % 0-0 NEUTROPHIL # (test code=NT#) 7.56 x10 3/uL 2.0-7.6 IMMATURE GRANULOCYTE # (test code=IG#) 0.03 x10 3/uL 0.00-0.03 LYMPHOCYTE # (test code=LY#) 0.27 x10 3/uL 1.0-3.8 MONOCYTE # (test code=MO#) 0.24 x10 3/uL 0.1-0.8 EOSINOPHIL # (test code=EO#) 0.00 x10 3/uL 0.0-0.2 BASOPHIL # (test code=BA#) 0.01 x10 3/uL 0.0-0.2 NUCLEATED RBC # (test code=NRBC#) 0.00 x10 3/uL 0.0-0.1 MANUAL DIFF REQUIRED (test code=MDIFF) NO ARTERIAL BLOOD [id number] 04:10:00 Test Item Value Reference Range Comments ARTERIAL BLOOD GAS PH (test 7.296 7.35-7.45 code=PHA) ARTERIAL BLOOD GAS PCO2 (test 62.7 mmHg 35-45 code=PCO2A) ARTERIAL BLOOD GAS PO2 (test 104 mmHg 80-100 code=PO2A) BICARBONATE TOTAL HCO3 (test 30.8 mmol/L 22.0-26.0 code=HCO3) BASE EXCESS (test code=JACQUELIN) 4.0 mmol/L -4-4 ABG O2 SATURATION (test 97 % 90-100 code=SATA) FIO2 (test code=FIO2A) 40 % ABG DELIVERY (test code=TERRI) Vent ABG VENT MODE (test AC v con code=MODEA) ABG VENT RESP RATE (test 22 /MIN code=RRA) ABG TIDAL VOLUME (test 500 ml code=TVA) ABG PEEP (test code=PEEPA) 5 cmH2O Performed by 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 [facility] ABG TEMPERATURE (test 97.6 F code=TEMPA) ABG SITE (test code=SITEA) L Rad PREDICTED AA GRADIENT (test 54 code=AP) PREDICTED PO2 (test code=OP) 155 a/A RATIO (test code=RATIO) 0.50 TCO2 ARTERIAL (test 33 code=TCO2A) A-A GRADIENT (test 106 code=AAGRADE) THROMBOPLASTIN TIME [id number] 12:13:00 Test Item Value Reference Range Comments THROMBOPLASTIN TIME PARTIAL 60.8 Seconds 25.0-39.5 Therapeutic Range: (test code=PTT) 50.4 - 88.3 Seconds Effective 10/20/2018 - XR CHEST 1 [id number] 11:59:00 FAX: Gregg Martinez [place]: St: [facility] FAX: David See [phone] FAX : Bhupinder Avila MD [phone] Name: YASH CLINTON [facility] aTlha : 1950 Age/S: 69/M [address] [place] [address] Unit #: [id number] Loc: [address] [place] [address] Phys: Miroslava See NP Acct: [id number] Dis Date: Status: ADM IN PHONE #: [phone] Exam Date: 06/07 1154 FAX #: [phone] Reason: resp failure EXAMS: CPT CODE: [id number] XR CHEST 1 V 62767 1 VIEW CXR. PORTABLE EXAM 11:38 AM HISTORY: Respiratory failure. Shortness of breath. COMPARISON: This mornings 9:37 AM chest x-ray. Infiltrate like opacity right base slightly more prominent compared with the exam earlier this morning. Mild prominence pulmonary markings throughout the remaining right lung. Left lung clear. No pleural abnormality. Cardiomediastinal silhouette and bony thorax normal. Right IJ central line, NG tube and ET tube all appear well- positioned. IMPRESSION: Slight worsening in the infiltrate like opacity right lung base. Stable more diffuse prominence pulmonary markings throughout the remaining right lung. Stable support devices. END OF IMPRESSION SL: [id number] Electronically Signedby Gildardo Mcclelland on 06/07/2019 at 1159 Reported and signed by: Jenaro Mcclelland M.D. CC: Gregg Coulter MD; Miroslava See NP; Bhupinder Avila MD Technologist: RT Tessa(R) Trnscrd Date/Time/By: 06/07/2019 (8081) : By: Moses Orig Print D/T: S: 06/07/2019 (2177) PAGE 1 Signed Report- XR ABDOMEN 1V (KUB)2019-06-07 09:56:00 FAX: Gregg Martinez [phone] [place]: St: ADM FAX: Bhupinder Avila MD [phone] FAX: Jesse Carlisle MD ------ Name: YASH CLINTON [facility] : 1950 Age/S: 69/M [address] [place] [address] Unit #: [id number] Loc: [address] [place] [address] Phys: Jesse Carlisle MD Acct: [id number] Dis Date: Status: ADM IN PHONE #: [phone] Exam Date: 06/07/2019 0947 FAX #: [phone] Reason: ogt EXAMS: CPT CODE: [id number] XR ABDOMEN 1V ([facility]) [address] 1 VIEW ABDOMEN INDICATION: Orogastric tube placement. COMPARISON: No relevant priors available. NG tube tip and sidehole projected within the gastric lumen. Bowel gas pattern, soft tissues and lung bases normal. IMPRESSION: NG tube within the gastric lumen. END IMPRESSION [id number] at 0956 Reported and signed by: Jenaro Mcclelland M.D. CC: Gregg Coulter MD; Bhupinder Avila MD; Jesse Carlisle MD Technologist: RT Clark(R) Alfreda Date/Time/By: 06/07/2019 (0956) : By: Moses Orig Print D/T: S: 08/2018 (3618) PAGE 1 Signed Report- XR CHEST 1 [id number] 09:52:00 FAX: Gregg Martinez [phone] [place]: St: ADM FAX: Bhupinder Avila MD [phone] FAX: Jesse Carlisle MD [phone] Name: YASH CLINTON [facility] Talha : 1950 Age/S: 69/M [address] [place] [address] Unit #: [id number] Loc: [address] [place] [address] Phys: Jesse Carlisle MD Acct: [id number] Dis Date: Status: ADM IN PHONE #: [phone] Exam Date: 06/07/2019 0947 FAX #: [phone] Reason: ett EXAMS: CPT CODE: [id number] XR CHEST 1 V 30362 Portable chest performed June 07, 2019 0937 hours. COMPARISON: June 06, 2019. CLINICAL HISTORY: Lines and tubes. DISCUSSION : Single portable chest is submitted. The tracheal tube is present with the tip approximately 5 cm above the solo. Remaining supporting lines and tubes appear stable. Heart size is normal. Again seen are bilateral ill-defined opacities in the bilateral lung apices. Patchy opacity is also seen in the right lower lobe. Appearance is not significantly changed compared to prior study. IMPRESSION: 1. Stable poorly defined opacities in both lung apices and in the right lower lobe 2. Lines and tubes as above. at 0952 Reported and signed by: Ghada Lomas M.D. CC: Gregg Coulter MD;Bhupinder Avila MD; Jesse Carlisle MD Technologist: RT Clark(Mark) Trnscrd Date/Time/By: 08/2018 (0988) : By: [facility] PAGE 1 Signed ReportBASIC METABOLIC [id number] 07:02:00 Test Item Value Reference Range Comments SODIUM (test code=NA) 136 mEq/L 134-147 POTASSIUM (test code=K) 3.5 mEq/L 3.4-5.0 CHLORIDE (test code=CL) 98 mEq/L 100-108 CARBON DIOXIDE (test code=CO2) 28 mEq/L 21-33 ANION GAP (test code=GAP) 14 0-20 GLUCOSE (test code=GLU) 118 mg/dL 70-110 BLOOD UREA NITROGEN (test 41 mg/dL 7-18 code=BUN) GLOMERULAR FILTRATION RATE 26.9 70-80 Units of measure=ml/min/1.73 (test code=GFR) m2 CREATININE (test code=CREAT) 2.4 mg/dL 0.6-1.3 CALCIUM (test code=CA) 7.1 mg/dL 8.0-10.5 [id number] 07:02:00 Test Item Value Reference Range Comments PHOSPHOROUS (test code=PHOS) 3.9 MG/DL 2.5-4.9 [id number] 07:02:00 Test Item Value Reference Range Comments MAGNESIUM (test code=MAG) 2.10 mg/dL 1.8-2.4 THROMBOPLASTIN TIME [id number] 07:00:00 Test Item Value Reference Range Comments THROMBOPLASTIN TIME PARTIAL 61.8 Seconds 25.0-39.5 Therapeutic Range: (test code=PTT) 50.4 - 88.3 Seconds Effective 10/20/2018 CBC W/AUTO [id number] 06:50:00 Test Item Value Reference Range Comments WHITE BLOOD CELL (test code=WBC) 7.87 x10 3/uL 4.5-11.0 RED BLOOD CELL (test code=RBC) 3.50 x10 6/uL 4.00-5.60 HEMOGLOBIN (test code=HGB) 10.6 g/dL 12.5-16.9 HEMATOCRIT (test code=HCT) 32.8 % 37.5-50.7 MEAN CELL VOLUME (test code=MCV) 93.7 fL 81.0-99.0 MEAN CELL HGB (test code=MCH) 30.3 pg 27.0-33.0 MEAN CELL HGB CONCETRATION (test code=MCHC) 32.3 g/dL 33.0-37.0 RED CELL DISTRIBUTION WIDTH CV (test code=RDW) 15.0 % 11.5-14.5 RED CELL DISTRIBUTION WIDTH SD (test 50.6 fL 37.0-54.0 code=RDW-SD) PLATELET COUNT (test code=PLT) 174 x10 3/uL 150-400 MEAN PLATELET VOLUME (test code=MPV) 10.6 fL 7.0-9.0 NEUTROPHIL % (test code=NT%) 92.7 % 56.0-77.0 IMMATURE GRANULOCYTE % (test code=IG%) 0.6 % 0.0-2.0 LYMPHOCYTE % (test code=LY%) 3.4 % 14.0-32.0 MONOCYTE % (test code=MO%) 3.3 % 4.8-9.0 EOSINOPHIL % (test code=EO%) 0.0 % 0.3-3.7 BASOPHIL % (test code=BA%) 0.0 % 0.0-2.0 NUCLEATED RBC % (test code=NRBC%) 0.3 % 0-0 NEUTROPHIL # (test code=NT#) 7.29 x10 3/uL 2.0-7.6 IMMATURE GRANULOCYTE # (test code=IG#) 0.05 x10 3/uL 0.00-0.03 LYMPHOCYTE # (test code=LY#) 0.27 x10 3/uL 1.0-3.8 MONOCYTE # (test code=MO#) 0.26 x10 3/uL 0.1-0.8 EOSINOPHIL # (test code=EO#) 0.00 x10 3/uL 0.0-0.2 BASOPHIL # (test code=BA#) 0.00 x10 3/uL 0.0-0.2 NUCLEATED RBC # (test code=NRBC#) 0.02 x10 3/uL 0.0-0.1 MANUAL DIFF REQUIRED (test code=MDIFF) NO THROMBOPLASTIN TIME [id number] 19:33:00 Test Item Value Reference Range Comments THROMBOPLASTIN TIME PARTIAL 53.8 Seconds 25.0-39.5 Therapeutic Range: (test code=PTT) 50.4 - 88.3 Seconds Effective 10/20/2018 ARTERIAL BLOOD [id number] 19:25:00 Test Item Value Reference Range Comments ARTERIAL BLOOD GAS PH (test 7.368 7.35-7.45 code=PHA) ARTERIAL BLOOD GAS PCO2 (test 46.1 mmHg 35-45 code=PCO2A) ARTERIAL BLOOD GAS PO2 (test 102 mmHg 80-100 code=PO2A) BICARBONATE TOTAL HCO3 (test 26.6 mmol/L 22.0-26.0 code=HCO3) BASE EXCESS (test code=JACQUELIN) 1.0 mmol/L -4-4 ABG O2 SATURATION (test 98 % 90-100 code=SATA) FIO2 (test code=FIO2A) 40 % ABG DELIVERY (test code=TERRI) Vent ABG VENT MODE (test AC v con code=MODEA) ABG VENT RESP RATE (test 28 /MIN code=RRA) ABG TIDAL VOLUME (test 500 ml code=TVA) ABG PEEP (test code=PEEPA) 5 cmH2O Performed by 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 [employer] [facility] ABG TEMPERATURE (test 98.1 F code=TEMPA) ABG SITE (test code=SITEA) L Rad PREDICTED AA GRADIENT (test 59 code=AP) PREDICTED PO2 (test code=OP) 170 a/A RATIO (test code=RATIO) 0.44 TCO2 ARTERIAL (test 28 code=TCO2A) A-A GRADIENT (test 128 code=AAGRADE) ARTERIAL BLOOD [id number] 16:22:00 Test Item Value Reference Range Comments ARTERIAL BLOOD GAS PH (test 7.283 7.35-7.45 code=PHA) ARTERIAL BLOOD GAS PCO2 (test 45.9 mmHg 35-45 code=PCO2A) ARTERIAL BLOOD GAS PO2 (test 95 mmHg 80-100 code=PO2A) BICARBONATE TOTAL HCO3 (test 21.7 mmol/L 22.0-26.0 code=HCO3) BASE EXCESS (test code=JACQUELIN) -5.0 mmol/L -4-4 ABG O2 SATURATION (test 96 % 90-100 code=SATA) FIO2 (test code=FIO2A) 40 % ABG DELIVERY (test code=TERRI) Vent ABG VENT MODE (test AC v con code=MODEA) ABG VENT RESP RATE (test 24 /MIN code=RRA) ABG TIDAL VOLUME (test 500 ml code=TVA) ABG PEEP (test code=PEEPA) 5 cmH2O Performed by 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 [facility] ABG TEMPERATURE (test 98.6 F code=TEMPA) ABG SITE (test code=SITEA) R Rad PREDICTED AA GRADIENT (test 59 code=AP) PREDICTED PO2 (test code=OP) 170 a/A RATIO (test code=RATIO) 0.41 TCO2 ARTERIAL (test 23 code=TCO2A) A-A GRADIENT (test 135 code=AAGRADE) ACUTE HEPATITIS [id number] 14:30:00 Test Item Value Reference Range Comments AB HEPATITIS A IGM (test code=HAVMAB) NON REACTIVE INDEX NON REACT. AG HEPATITIS B SURFACE (test code=HBSAG) NON REACTIVE INDEX NonReactive AB HEPATITIS B CORE IGM (test NON REACTIVE INDEX NON REACT. code=HBCMAB) AB HEPATITIS C (test code=HCVAB) NON REACTIVE INDEX NON REACT. COMMENTS: At start of hemodialysisAB HEPATITIS B [id number] 14:30:00 Test Item Value Reference Range Comments AB HEPATITIS B SURFACE (test code=HBSAB) COMMENTS: At start of hemodialysisACUTE HEPATITIS [id number] 14:29:00 Test Item Value Reference Range Comments AB HEPATITIS A IGM (test code=HAVMAB) INDEX NON REACT. AG HEPATITIS B SURFACE (test code=HBSAG) NON REACTIVE INDEX NonReactive AB HEPATITIS B CORE IGM (test NON REACTIVE INDEX NON REACT. code=HBCMAB) AB HEPATITIS C (test code=HCVAB) NON REACTIVE INDEX NON REACT. COMMENTS: At start of hemodialysisAB HEPATITIS B [id number] 14:29:00 Test Item Value Reference Range Comments AB HEPATITIS B SURFACE (test code=HBSAB) COMMENTS: At start of hemodialysisPROTHROMBIN [id number] 14:23:00 Test Item Value Reference Range Comments PROTHROMBIN TIME PATIENT 15.4 SECONDS 9.3-12.9 (test code=PTP) INTERNATIONAL NORMAL RATIO 1.4 0.8-1.2 TARGET INR BY (test code=INR) INDICATION Indication INR1. Prophylaxis of venous thrombosis 2.0 - 3.0 (orthopedic surgery), Prophylaxis of venous thrombosis (other than high-risk surgery), Treatment of Deep Vein Thrombosis/Pulmonary Embolism, Prevention of systemic embolism - Tissue heart valves, Acute Myocardial Infarction (to prevent systemic embolism), Valvular heart disease, Atrial Fibrillation, Bileaflet mechanical valve in aortic position.2. Mechanical prosthetic valves (high risk), 2.5 - 3.5 Presence of Lupus Anticoagulant or Antiphospholipid Antibodies, Prevention of systemic embolism - Acute Myocardial Infarction (to prevent recurrent infarct). COMMENTS: IF NOT ALREADY DONE WITHIN LAST 24 HOURSACUTE HEPATITIS [id number] 14:02:00 Test Item Value Reference Range Comments AB HEPATITIS A IGM (test code=HAVMAB) INDEX NON REACT. AG HEPATITIS B SURFACE (test code=HBSAG) NON REACTIVE INDEX NonReactive AB HEPATITIS B CORE IGM (test INDEX NON REACT. code=HBCMAB) AB HEPATITIS C (test code=HCVAB) INDEX NON REACT. COMMENTS: At start of hemodialysisAB HEPATITIS B [id number] 14:02:00 Test Item Value Reference Range Comments AB HEPATITIS B SURFACE (test code=HBSAB) COMMENTS: At start of hemodialysisTHROMBOPLASTIN TIME [id number] 13:50:00 Test Item Value Reference Range Comments THROMBOPLASTIN TIME PARTIAL 45.8 Seconds 25.0-39.5 Therapeutic Range: (test code=PTT) 50.4 - 88.3 Seconds Effective 10/20/2018 COMMENTS: DRAW PTT 6 HOURS AFTER INITIATION OF HEPARINARTERIAL BLOOD [id number] 12:48:00 Test Item Value Reference Range Comments ARTERIAL BLOOD GAS PH (test 7.199 7.35-7.45 code=PHA) ARTERIAL BLOOD GAS PCO2 (test 54.3 mmHg 35-45 code=PCO2A) ARTERIAL BLOOD GAS PO2 (test 92 mmHg 80-100 code=PO2A) BICARBONATE TOTAL HCO3 (test 21.2 mmol/L 22.0-26.0 code=HCO3) BASE EXCESS (test code=JACQUELIN) -7.0 mmol/L -4-4 ABG O2 SATURATION (test 95 % 90-100 code=SATA) FIO2 (test code=FIO2A) 40 % ABG DELIVERY (test code=TERRI) Vent ABG VENT MODE (test AC v con code=MODEA) ABG VENT RESP RATE (test 18 /MIN code=RRA) ABG TIDAL VOLUME (test 500 ml code=TVA) ABG PEEP (test code=PEEPA) 5 cmH2O Performed by 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 [facility] ABG TEMPERATURE (test 98.6 F code=TEMPA) ABG SITE (test code=SITEA) R Rad PREDICTED AA GRADIENT (test 57 code=AP) PREDICTED PO2 (test code=OP) 163 a/A RATIO (test code=RATIO) 0.42 TCO2 ARTERIAL (test 23 code=TCO2A) A-A GRADIENT (test 128 code=AAGRADE) - XR CHEST 1 [id number] 12:48:00 FAX: Rah Malone MD [place]: St: ADM FAX: Richardson Gregg Coulter [phone] FAX: Bhupinder Avila MD [phone] Name: YASH CLINTON [facility] : 1950 Age/S: 69/M [address] [place] [address] Blvd Unit #: [id number] Loc: G[address] [place] [address] Phys: Rah Cueva MD Acct: [id number] Dis Date: Status: ADM IN PHONE #: [phone] Exam Date: 2018 1238 FAX #: [phone] Reason: S/P INTUBATION, TRIALYSIS CATH PLACEMENT EXAMS: CPT CODE: [id number] XR CHEST 1 V 28530 PROCEDURE: CHEST SINGLE VIEW 06/06/2019 at 1156 hours INDICATION: S/P INTUBATION, TRIALYSIS CATH PLACEMENT COMPARISON: Multiple priors, most recent 06/06/2019 at 0609 hours FINDINGS: TUBES AND LINES: Endotracheal tube 4 cm above the solo. Nasogastric tube at the level of proximal stomach. Right internal jugular central venous catheter tip at the level of upper right atrium. EKG leads overlie the chest. CHEST: Bilateral ill-defined interstitial opacities asymmetric on the right with faint nodular component suggesting airspace disease notably right apex and right base. No consolidation. No pleural abnormality. Mild prominence of the cardiac silhouette is stable. Calcified plaque thoracic aorta. No acute skeletal abnormality. IMPRESSION: 1. Support tubing in satisfactory position. 2. Bilateral interstitial opacities asymmetric on the right with component of airspace disease suspected. Asymmetric distribution of edema and pneumonitis in the differential. SL: [id number] at 1920 Reported and signed by: Marco A Blanton M.D. CC: Rah Cueva MD; Gregg Coulter MD; Bhupinder Avila MD Technologist: RT Zakia(Mark) Leroypamaris Date/Time/By: 07/2018 (2862) : By: [email or web address] Orig Print D/T: S: 06/06/2019 (6720) PAGE 1 Signed Report- XR CHEST 1 [id number] 09:22:00 FAX: Gregg Martinez [phone] [place]: St: [facility] FAX: David See [phone] FAX: Bhupinder Avila MD [phone] Name: YASH CLINTON [facility] : 1950 Age/S: 69/M [address] [place] [address] Unit #: [id number] Loc: G.M[address] [place] [address] Phys: Miroslava See NP Acct: [id number] Dis Date: Status: ADM IN PHONE #: [phone] Exam Date: 06/06/2019 06 FAX #: [phone] Reason: follow up EXAMS: CPT CODE: [id number] XR CHEST 1 V 50187 Chest single view 06/06/2019 HISTORY: Follow-up, shortness of breath Comparison is made to 06/05/2019 FINDINGS: There is elevation of the left hemidiaphragm. Increased interstitial infiltrates are unchanged. No consolidation or pleural effusion is present. Cardiomegaly is stable. Tortuous aorta is unchanged. IMPRESSION: 1. Increased interstitial infiltrates bilaterally may represent edema or atypical pneumonitis. 2. No consolidation. 3. Stable cardiomegaly. SL: [id number] at 0922 Reported and signed by: Jun Landis M.D. CC: Gregg Coulter MD; Miroslava See NP; Bhupinder Avila MDTechnologist: Farrukh Hdez, RT(R) ; Casimiro Caballero RT(R) Trnscrd Date/Time/By: 06/06/2019 (921) : By: [email or web address] Orig Print D/T: S: 06/06/2019 (5714) PAGE1 Signed ReportARTERIAL BLOOD [id number] 09:12:00 Test Item Value Reference Range Comments ARTERIAL BLOOD GAS PH (test 7.184 7.35-7.45 code=PHA) ARTERIAL BLOOD GAS PCO2 (test 51.0 mmHg 35-45 code=PCO2A) ARTERIAL BLOOD GAS PO2 (test 117 mmHg 80-100 code=PO2A) BICARBONATE TOTAL HCO3 (test 19.2 mmol/L 22.0-26.0 code=HCO3) BASE EXCESS (test code=JACQUELIN) -9.0 mmol/L -4-4 ABG O2 SATURATION (test 97 % 90-100 code=SATA) FIO2 (test code=FIO2A) 40 % ABG DELIVERY (test code=TERRI) B[employer] ABG VENT RESP RATE (test 18 /MIN Performed by certified code=RRA) 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 [facility] ABG TEMPERATURE (test 98.6 F code=TEMPA) ABG SITE (test code=SITEA) R Rad PREDICTED AA GRADIENT (test 58 code=AP) PREDICTED PO2 (test code=OP) 166 a/A RATIO (test code=RATIO) 0.52 TCO2 ARTERIAL (test 21 code=TCO2A) A-A GRADIENT (test 107 code=AAGRADE) BASIC METABOLIC [id number] 06:59:00 Test Item Value Reference Range Comments SODIUM (test code=NA) 128 mEq/L 134-147 POTASSIUM (test code=K) 5.3 mEq/L 3.4-5.0 CHLORIDE (test code=CL) 94 mEq/L 100-108 CARBON DIOXIDE (test code=CO2) 20 mEq/L 21-33 ANION GAP (test code=GAP) 19 0-20 GLUCOSE (test code=GLU) 167 mg/dL 70-110 BLOOD UREA NITROGEN (test 45 mg/dL 7-18 code=BUN) GLOMERULAR FILTRATION RATE 14.5 70-80 Units of measure=ml/min/1.73 (test code=GFR) m2 CREATININE (test code=CREAT) 4.1 mg/dL 0.6-1.3 CALCIUM (test code=CA) 6.8 mg/dL 8.0-10.5 [id number] 06:59:00 Test Item Value Reference Range Comments PHOSPHOROUS (test code=PHOS) 8.4 MG/DL 2.5-4.9 [id number] 06:59:00 Test Item Value Reference Range Comments MAGNESIUM (test code=MAG) 2.40 mg/dL 1.8-2.4 CALCIUM [id number] 06:59:00 Test Item Value Reference Range Comments CALCIUM IONIZED (test code=JOSH) 0.91 MMOL/L 1.12-1.32 BASIC METABOLIC [id number] 06:28:00 Test Item Value Reference Range Comments SODIUM (test code=NA) mEq/L 134-147 POTASSIUM (test code=K) mEq/L 3.4-5.0 CHLORIDE (test code=CL) mEq/L 100-108 CARBON DIOXIDE (test code=CO2) mEq/L 21-33 ANION GAP (test code=GAP) 0-20 GLUCOSE (test code=GLU) mg/dL 70-110 BLOOD UREA NITROGEN (test code=BUN) mg/dL 7-18 GLOMERULAR FILTRATION RATE (test code=GFR) 70-80 CREATININE (test code=CREAT) mg/dL 0.6-1.3 CALCIUM (test code=CA) mg/dL 8.0-10.5 [id number] 06:28:00 Test Item Value Reference Range Comments PHOSPHOROUS (test code=PHOS) MG/DL 2.5-4.9 [id number] 06:28:00 Test Item Value Reference Range Comments MAGNESIUM (test code=MAG) mg/dL 1.8-2.4 CALCIUM [id number] 06:28:00 Test Item Value Reference Range Comments CALCIUM IONIZED (test code=JOSH) 0.91 MMOL/L 1.12-1.32 CBC W/AUTO [id number] 06:07:00 Test Item Value Reference Range Comments WHITE BLOOD CELL (test code=WBC) 14.73 x10 3/uL 4.5-11.0 RED BLOOD CELL (test code=RBC) 4.06 x10 6/uL 4.00-5.60 HEMOGLOBIN (test code=HGB) 12.1 g/dL 12.5-16.9 HEMATOCRIT (test code=HCT) 40.0 % 37.5-50.7 MEAN CELL VOLUME (test code=MCV) 98.5 fL 81.0-99.0 MEAN CELL HGB (test code=MCH) 29.8 pg 27.0-33.0 MEAN CELL HGB CONCETRATION (test code=MCHC) 30.3 g/dL 33.0-37.0 RED CELL DISTRIBUTION WIDTH CV (test 15.1 % 11.5-14.5 code=RDW) RED CELL DISTRIBUTION WIDTH SD (test 54.5 fL 37.0-54.0 code=RDW-SD) PLATELET COUNT (test code=PLT) 252 x10 3/uL 150-400 MEAN PLATELET VOLUME (test code=MPV) 10.4 fL 7.0-9.0 NEUTROPHIL % (test code=NT%) 88.7 % 56.0-77.0 IMMATURE GRANULOCYTE % (test code=IG%) 0.8 % 0.0-2.0 LYMPHOCYTE % (test code=LY%) 3.9 % 14.0-32.0 MONOCYTE % (test code=MO%) 6.5 % 4.8-9.0 EOSINOPHIL % (test code=EO%) 0.0 % 0.3-3.7 BASOPHIL % (test code=BA%) 0.1 % 0.0-2.0 NUCLEATED RBC % (test code=NRBC%) 0.7 % 0-0 NEUTROPHIL # (test code=NT#) 13.06 x10 3/uL 2.0-7.6 IMMATURE GRANULOCYTE # (test code=IG#) 0.12 x10 3/uL 0.00-0.03 LYMPHOCYTE # (test code=LY#) 0.57 x10 3/uL 1.0-3.8 MONOCYTE # (test code=MO#) 0.96 x10 3/uL 0.1-0.8 EOSINOPHIL # (test code=EO#) 0.00 x10 3/uL 0.0-0.2 BASOPHIL # (test code=BA#) 0.02 x10 3/uL 0.0-0.2 NUCLEATED RBC # (test code=NRBC#) 0.10 x10 3/uL 0.0-0.1 MANUAL DIFF REQUIRED (test code=MDIFF) NO [id number] 19:20:00 Test Item Value Reference Range Comments GLUBED (test code=GLUBED) 135 MG/DL 70-110 Performed by 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 [facility] - US RETRO [id number] 18:59:00 Name: YASH CLINTON [facility] : 1950 Age/S: 69 / M [address] [place] [address] Unit #: [id number] Loc: [place], [place] Phys: Alexandra Carvajal MD Acct: [id number] Dis Date: Status: ADM IN PHONE #: [phone] Exam Date: 06/05/2019 1854 FAX #: [phone] Reason: XIOMY EXAMS: CPTCODE: [id number] US RETRO LTD 94270 PROCEDURE: RENAL ULTRASOUND INDICATION: Acute kidney injury. COMPARISON: 06/20/2018 CT abdomen. TECHNIQUE: Sonographic evaluation of the kidneys and urinary bladder was performed. FINDINGS: KIDNEYS: The right kidney measures 11.2 cm in length. Normal contour and parenchymal echogenicity. Mild pelviectasis may be present without overt hydronephrosis. No cortical thinning. The left kidney measures 11.4 cm in length. Normal contour and parenchymal echogenicity. There is no hydronephrosis or cortical thinning. Septated or bilobed midpole cyst is once again seen measuring 3.7 x 4 x 3 cm without internal vascularity. BLADDER: Bladder is collapsed around a Kent catheter balloon. Proximal abdominal aorta demonstrates color flow with the remaining aspects including the bifurcation obscured by overlying gas. Intrahepatic IVC demonstrates color flow. IMPRESSION: 1. Possible mild right renal pelviectasis. No hydronephrosis. 2. Left renal cyst. SL: MARIS-H Electronically Signed by Gildardo Castellano on at 1859 Reported and signed by: Shree Castellano M.D. PAGE 1 Signed Report ( CONTINUED) Name: YASH CLINTON [facility] : 1950 Age/S: 69 / M [address] [place] [address] Blvd Unit #: [id number] Loc: [place] [address] Phys: Ashia Carvajal MD Acct: [id number] Dis Date: Status: ADM IN PHONE #: [phone] Exam Date: 06/05/20191853 FAX #: [phone] Reason: XIOMY EXAMS: CPT CODE: [id number] RETRO LTD 31705 <Continued> CC: Alexandra Carvajal MD; Gregg Coulter MD; Bhupinder Avila MD Technologist: Dulce Ashford RDMS(AB) Trnscb Date/Time: 2018 (1858) [email or web address] Orig Print D/T: S: 06/05/2019 (190 ) Probe: PAGE 2 Signed ReportRESPIRATORY VIRUS PANEL [id number] 17:00:00 Test Item Value Reference Range Comments RSV A PCR (test code=RSV Negative Negative A) RSV B PCR (test code=RSV Negative Negative B) INFLUENZA A (test Negative Negative code=FLUAPCR) INFLUENZA A SUBTYPE H1 Negative Negative (test code=FLUAH1) INFLUENZA A SUBTYPE H3 Negative Negative (test code=FLUAH3) INFLUENZA B (test Negative Negative code=FLUBPCR) PARAINFLUENZA TYPE 1 PCR Negative Negative (test code=PIF1) PARAINFLUENZA TYPE 2 PCR Negative Negative (test code=PIF2) PARAINFLUENZA TYPE 3 PCR Negative Negative (test code=PIF3) PARAINFLUENZA TYPE 4 PCR Negative Negative (test code=PIF4) RHINOVIRUS PCR (test Positive Negative code=RHINO) METAPNEUMOVIRUS PCR (test Negative Negative code=METAPNEU) ADENOVIRUS PCR (test Negative Negative code=ADENOPCR) BORDETELLA PERTUSSIS DNA Negative Negative PCR (test code=BORDPERDNA) B PARAPERTUSSIS BY PCR Negative Negative (test code=BPARAPCR) BORDETELLA HOLMESII (test Negative Negative Testing was performed using code=BORDHOLM) nucleic acid amplificationincluding Bordetella parapertussis/brochiseptica, Bordetella holmesii, and Bordetella pertussis. COMPLEMENT BETA C1 (test RVP Comment Testing was performed using code=COMBC1) nucleic acid amplificationincluding influenza A, influenza A H1, influenza A H3,influenza B, RSV-A, RSV-B, Adenovirus, HumanMetapneumovirus, Parainfluenza 1,2,3 and 4, Rhinovirus, Bordetella parapertussis/brochiseptica, Bordetella holmesii, and Bordetella pertussis. URINALYSIS [id number] 14:00:00 Test Item Value Reference Range Comments UA COLOR (test code=COLU) YELLOW YEL/STRAW UA APPEARANCE (test code=APPU) CLOUDY CLEAR UA GLUCOSE DIPSTICK (test code=DGLUU) NEGATIVE NEGATIVE UA BILIRUBIN DIPSTICK (test code=BILU) NEGATIVE NEGATIVE UA KETONE DIPSTICK (test code=KETU) NEGATIVE NEGATIVE UA SPECIFIC GRAVITY (test code=SGU) 1.040 1.005-1.030 UA BLOOD DIPSTICK (test code=ALPHONSE) 1+ NEGATIVE UA PH DIPSTICK (test code=WAYNE) 5.0 5.0-7.0 UA PROTEIN DIPSTICK (test code=PROU) 1+ NEGATIVE UA UROBILINIOGEN DIPSTICK (test code=URO) 0.2 mg/dL 0.2-1.0 UA NITRITE DIPSTICK (test code=SUMANTH) NEGATIVE NEGATIVE UA LEUKOCYTE ESTERASE DIPSTICK (test code=LEUU) NEGATIVE NEGATIVE UA RBC (test code=RBCU) >50 RBC/HPF 0-3 UA WBC NO REFLEX (test code=WBCUCL) 4-9 WBC/HPF 0-3 UA BACTERIA (test code=BACU) TRACE /HPF NONE SEEN UA SQUAMOUS CELLS (test code=SQU) 0-5 /HPF NONE SEEN UA HYALINE CAST (test code=HYALU) 11-20 /LPF NONE SEEN UA MUCUS (test code=MUCU) 1+ /LPF NONE SEEN UR PROTEIN [id number] 14:00:00 Test Item Value Reference Range Comments UR PROTEIN RANDOM (test 47 mg/dL Note: Change in UNITS of code=PROTU) MEASUREMENT. The Reference Range and Method Performance specificationshave not been established for this fluid. The test resultshould be correlated into the clinical context forinterpretation. UR CREATININE [id number] 14:00:00 Test Item Value Reference Range Comments UR CREATININE RANDOM 199.0 mg/dL The Reference Range and Method (test code=CREATU) Performance specificationshave not been established for this fluid. The test resultshould be correlated into the clinical context forinterpretation. URINALYSIS [id number] 13:45:00 Test Item Value Reference Range Comments UA COLOR (test code=COLU) YEL/STRAW UA APPEARANCE (test code=APPU) CLEAR UA GLUCOSE DIPSTICK (test code=DGLUU) NEGATIVE UA BILIRUBIN DIPSTICK (test code=BILU) NEGATIVE UA KETONE DIPSTICK (test code=KETU) NEGATIVE UA SPECIFIC GRAVITY (test code=SGU) 1.005-1.030 UA BLOOD DIPSTICK (test code=ALPHONSE) NEGATIVE UA PH DIPSTICK (test code=WAYNE) 5.0-7.0 UA PROTEIN DIPSTICK (test code=PROU) NEGATIVE UA UROBILINIOGEN DIPSTICK (test code=URO) mg/dL 0.2-1.0 UA NITRITE DIPSTICK (test code=SUMANTH) NEGATIVE UA LEUKOCYTE ESTERASE DIPSTICK (test code=LEUU) NEGATIVE UA RBC (test code=RBCU) RBC/HPF 0-3 UR PROTEIN [id number] 13:45:00 Test Item Value Reference Range Comments UR PROTEIN RANDOM (test 47 mg/dL Note: Change in UNITS of code=PROTU) MEASUREMENT. The Reference Range and Method Performance specificationshave not been established for this fluid. The test resultshould be correlated into the clinical context forinterpretation. UR CREATININE [id number] 13:45:00 Test Item Value Reference Range Comments UR CREATININE RANDOM 199.0 mg/dL The Reference Range and Method (test code=CREATU) Performance specificationshave not been established for this fluid. The test resultshould be correlated into the clinical context forinterpretation. - XR CHEST 1 [id number] 07:37:00 FAX: Flaquito Doty MD [place]: St: ADM FAX: Gregg Martinez [phone] ------ Name : YASH CLINTON [facility] : 08/1949 Age/S: 69/M [address] [place] [address] Unit #: [id number] Loc: G.[address] [place] [address] Phys: Flaquito Doty MD Acct: [id number] Dis Date: Status: ADM IN PHONE #: [phone] Exam Date: 06/05/2019 06 FAX #: [phone] Reason: pneumonia EXAMS: CPT CODE: [id number] XR CHEST 1 V 56668 Chest singleview 06/05/2019 HISTORY: Pneumonia. Comparison is made to 06/04/2019 FINDINGS: Increased interstitial infiltrates are present bilaterally. Increased bibasilar atelectasis/ infiltrates are present. Cardiomegaly is stable. Tortuous aorta is unchanged. IMPRESSION 1. Increased interstitial infiltrates bilaterally. This may represent edema or atypical pneumonia. 2. Increased bibasilar atelectasis/infiltrates.3. Stable cardiomegaly. SL: [id number] at 0737 Reported and signed by: Jun Landis M.D. CC: Flaquito Doty MD; Gregg Coulter MD Technologist: RT Nasra(Mark) Trnscrd Date/Time/By: (0737) : By: [email or web address] Orig Print D/T: S: 06/05/2019 (9756) PAGE 1 Signed ReportCOMPREHENSIVE METABOLIC [id number] 07:35:00 Test Item Value Reference Range Comments SODIUM (test code=NA) 132 mEq/L 134-147 POTASSIUM (test code=K) 5.1 mEq/L 3.4-5.0 CHLORIDE (test code=CL) 100 mEq/L 100-108 CARBON DIOXIDE (test code=CO2) 22 mEq/L 21-33 ANION GAP (test code=GAP) 15 0-20 GLUCOSE (test code=GLU) 143 mg/dL 70-110 BLOOD UREA NITROGEN (test 30 mg/dL 7-18 code=BUN) GLOMERULAR FILTRATION RATE 33.2 70-80 Units of (test code=GFR) measure=ml/min/1.73 m2 CREATININE (test code=CREAT) 2.0 mg/dL 0.6-1.3 TOTAL PROTEIN (test code=PROT) 7.2 g/dL 6.4-8.2 ALBUMIN (test code=ALB) 3.80 g/dL 3.4-5.0 CALCIUM (test code=CA) 7.6 mg/dL 8.0-10.5 BILIRUBIN TOTAL (test 0.6 MG/DL <1.5 code=BILT) SGOT/AST (test code=AST) 54 IUnit/L 15-37 SGPT/ALT (test code=ALT) 53 IUnit/L 15-65 ALKALINE PHOSPHATASE TOTAL 63 IUnit/L 20-125 (test code=ALKP) [id number] 07:35:00 Test Item Value Reference Range Comments PHOSPHOROUS (test code=PHOS) 5.4 MG/DL 2.5-4.9 [id number] 07:35:00 Test Item Value Reference Range Comments MAGNESIUM (test code=MAG) 2.30 mg/dL 1.8-2.4 CBC W/AUTO [id number] 06:21:00 Test Item Value Reference Range Comments WHITE BLOOD CELL (test code=WBC) 8.03 x10 3/uL 4.5-11.0 RED BLOOD CELL (test code=RBC) 4.14 x10 6/uL 4.00-5.60 HEMOGLOBIN (test code=HGB) 12.5 g/dL 12.5-16.9 HEMATOCRIT (test code=HCT) 39.8 % 37.5-50.7 MEAN CELL VOLUME (test code=MCV) 96.1 fL 81.0-99.0 MEAN CELL HGB (test code=MCH) 30.2 pg 27.0-33.0 MEAN CELL HGB CONCETRATION (test code=MCHC) 31.4 g/dL 33.0-37.0 RED CELL DISTRIBUTION WIDTH CV (test code=RDW) 15.1 % 11.5-14.5 RED CELL DISTRIBUTION WIDTH SD (test 52.3 fL 37.0-54.0 code=RDW-SD) PLATELET COUNT (test code=PLT) 227 x10 3/uL 150-400 MEAN PLATELET VOLUME (test code=MPV) 10.3 fL 7.0-9.0 NEUTROPHIL % (test code=NT%) 92.2 % 56.0-77.0 IMMATURE GRANULOCYTE % (test code=IG%) 0.6 % 0.0-2.0 LYMPHOCYTE % (test code=LY%) 5.2 % 14.0-32.0 MONOCYTE % (test code=MO%) 1.9 % 4.8-9.0 EOSINOPHIL % (test code=EO%) 0.0 % 0.3-3.7 BASOPHIL % (test code=BA%) 0.1 % 0.0-2.0 NUCLEATED RBC % (test code=NRBC%) 0.0 % 0-0 NEUTROPHIL # (test code=NT#) 7.40 x10 3/uL 2.0-7.6 IMMATURE GRANULOCYTE # (test code=IG#) 0.05 x10 3/uL 0.00-0.03 LYMPHOCYTE # (test code=LY#) 0.42 x10 3/uL 1.0-3.8 MONOCYTE # (test code=MO#) 0.15 x10 3/uL 0.1-0.8 EOSINOPHIL # (test code=EO#) 0.00 x10 3/uL 0.0-0.2 BASOPHIL # (test code=BA#) 0.01 x10 3/uL 0.0-0.2 NUCLEATED RBC # (test code=NRBC#) 0.00 x10 3/uL 0.0-0.1 MANUAL DIFF REQUIRED (test code=MDIFF) NO ISTAT BLOOD [id number] 05:28:00 Test Item Value Reference Range Comments ARTERIAL BLOOD GAS PH (test code=PHA) 7.304 7.35-7.45 ARTERIAL BLOOD GAS PCO2 (test code=PCO2A) 40.9 mmHg 35-45 ARTERIAL BLOOD GAS PO2 (test code=PO2A) 165 mmHg 80-100 BICARBONATE TOTAL HCO3 (test code=HCO3) 20.4 mmol/L 22.0-26.0 BASE EXCESS (test code=JACQUELIN) -6.0 mmol/L -4-4 ABG O2 SATURATION (test code=SATA) 99 % 90-100 ABG DELIVERY (test code=TERRI) Hi-liss Can ABG TEMPERATURE (test code=TEMPA) 98.0 F ABG SITE (test code=SITEA) R Rad POC LACTIC ACID (test code=POCLAC) 2.0 mmol/L 0.9-1.7 [id number] 01:17:00 Test Item Value Reference Range Comments TROPONIN-I (test < 0.015 ng/mL 0.000-0.045 Negative: <=0.045 code=TROPI) Positive: >=0.046 Correlation with serial results, other cardiac markers andclinical findings is necessary to determine the clinicalsignificance of this result. Results using different methodologies should not be comparedto one another as quantitative results may vary by method. COMMENTS: 3 troponins total (including troponin done in ED)PROCALCITONIN (PCT) 2019-06-04 22:22:00 Test Item Value Reference Range Comments PROCALCITONIN (PCT) (test 0.25 ng/mL 0.00-0.05 PROCALCITONIN (PCT) NORMAL code=PROCAL) RANGE (ADULT): <0.05 NG/ML. * a concentration <0.5 ng/mL represents a low risk of severe sepsis and/or septic shock.* a concentration >2 ng/mL represents a high risk of severe sepsis and/or septic shock.Nevertheless, concentrations <0.5 ng/mL do not exclude aninfection, on account of localized infections (withoutsystemic signs) which can be associated with such lowconcentrations, or a systemic infection in its initialstages (< 6 hours). Furthermore, increased procalcitonincan occur without infection. PCT concentrations between 0.5and 2.0 ng/mL should be interpreted taking into account thepatient's history. It is recommended to retest PCT within6-24 hours if any concentrations <2 ng/mL are obtained. [id number] 21:49:00 Test Item Value Reference Range Comments TROPONIN-I (test 0.016 ng/mL 0.000-0.045 Negative: <=0.045 code=TROPI) Positive: >=0.046 Correlation with serial results, other cardiac markers andclinical findings is necessary to determine the clinicalsignificance of this result. Results using different methodologies should not be comparedto one another as quantitative results may vary by method. COMMENTS: 3 troponins total (including troponin done in ED)LACTIC ACID [id number] 20:27:00 Test Item Value Reference Range Comments LACTIC ACID REPEAT (test code=LACTR) 1.4 mmol/l 0.4-1.9 - CTA CHEST FOR [id number] 18:58:00 Name: YASH CLINTON [facility] : 1950 Age/S: 69 / M [address] [place] [address] Unit #: [id number] Loc: [place], GZ00558 Phys: Oumar Salinas MD Acct: [id number] Dis Date: Status: REG ER PHONE #: [phone] Exam Date: 06/04/2019 1836 FAX #: [phone] Reason: recent travel, leg swelling, hypoxia, resp dist EXAMS: CPTCODE: [id number] [place] [address] Clinical Indication: recent travel, leg swelling, hypoxia, resp distress; Comparison: None TECHNIQUE: Multi-detector CTA imaging of the chest is performed. Coronal and sagittal as well as 3D Maximum Intensity Projected MIP reconstructions were obtained. 100 cc IV Isovue contrast used. CT DLP 359 mg-cm. FINDINGS: CT: Moderate centrilobular emphysema is seen in both lungs. Scarrings are seen in the right upper lobe and right lower lobe. There are no interstitial lung disease, pleural effusions or pneumothorax. The central airway is normal. There is no mediastinal lymphadenopathy. Thoracic osseous structures are unremarkable. Upper abdominal images demonstrate a 3.6 cm left renal cyst. CTA: The heart is within normal limits for size without pericardial effusion. Pulmonary arteries are unremarkable without evidence for proximal segmental or larger pulmonary embolus. The thoracic aorta is within normal limits without aneurysm or dissection. The great vessels and superior vena cava are normal. IMPRESSION: 1. No evidence for pulmonary embolus 2. Moderate emphysema in both lungs. 3. Scarrings/fibrosis in the right lungs. 4. Left renal cyst. SL: JORGE PAGE 1 Signed Report (CONTINUED ) Name: YASH CLINTON [facility] Rachel Benton : 08/1949 Age/S: 69 / M [address] [place] [address] Blvd Unit #: [id number] Loc: [place] [address] Phys: Oumar Salinas MD Acct: [id number] Dis Date: Status: REG ER PHONE #: [phone] Exam Date: 06/04/2019 1836 FAX #: [phone] Reason : recent travel, leg swelling, hypoxia, resp dist EXAMS: CPT CODE: [id number] [place] [address] <Continued> at 1858 Reported and signed by : Sylvester Duran M.D. CC: Oumar Salinas MD Technologist:Lalita Wells RT(R)(CT) CTDI: DLP: Trnscb Date/Time: 06/04/2019 (1857) [email or web address] Orig Print D/T: S: 06/04/2019 (1900) PAGE 2 Signed ReportINFLUENZA A [id number] 18:57:00 Test Item Value Reference Range Comments INFLUENZA A (test code=FLUAPCR) Negative Negative INFLUENZA B (test code=FLUBPCR) Negative Negative B-TYPE NATRIURETIC [id number] 18:32:00 Test Item Value Reference Range Comments B-TYPE NATRIURETIC PEPTIDE (test code=BNP) 287.0 PG/ML 0-100 ARTERIAL BLOOD [id number] 18:19:00 Test Item Value Reference Range Comments ARTERIAL BLOOD GAS PH (test 7.356 7.35-7.45 code=PHA) ARTERIAL BLOOD GAS PCO2 (test 44.3 mmHg 35-45 code=PCO2A) ARTERIAL BLOOD GAS PO2 (test 340 mmHg 80-100 code=PO2A) BICARBONATE TOTAL HCO3 (test 24.8 mmol/L 22.0-26.0 code=HCO3) BASE EXCESS (test code=JACQUELIN) -1.0 mmol/L -4-4 ABG O2 SATURATION (test 100 % 90-100 code=SATA) FIO2 (test code=FIO2A) 60 % ABG DELIVERY (test code=TERRI) Bipap ABG VENT RESP RATE (test 18 /MIN Performed by certified code=RRA) 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 [facility] ABG TEMPERATURE (test 98.6 F code=TEMPA) ABG SITE (test code=SITEA) R Rad PREDICTED AA GRADIENT (test 97 code=AP) PREDICTED PO2 (test code=OP) 277 a/A RATIO (test code=RATIO) 0.91 TCO2 ARTERIAL (test 26 code=TCO2A) A-A GRADIENT (test 35 code=AAGRADE) - XR CHEST 1 [id number] 18:12:00 FAX: Oumar Salinas MD [place]: St: REG Name: YASH CLINTON [facility] : 1950 Age/S: 69/M [address] [place] [address] Unit#: [id number] Loc: [place] [address] Phys: Oumar Salinas MD Acct: [id number] Dis Date: Status: REG ER PHONE #: [phone] Exam Date: 06/04/2019 1751 FAX #: [phone] Reason: r/o pneumonia EXAMS: CPT CODE: [id number] XR CHEST 1 V 82642 CHEST, ONE VIEW: HISTORY: Possible pneumonia COMPARISON EXAM(S): Chest x-rays dating back to September 2018. Previous CT scan of the chest from April 2019. FINDINGS: This single portable view was obtained at 1731 hours on 06/04/2019 and shows marked reduction in the degree of lingular infiltrate when compared to 04/18/2019. There may be minimal residual interstitial prominence. Underlying emphysematous changes are again noted in both upper lobes. No acute consolidations or effusions. Focal subpleural opacity is again noted laterally in the right upper lobe. This was demonstrated on the previous CT scan of the chest from 04/18/2019 and does not appear to have resolved. The cardiac silhouette is mildly enlarged. IMPRESSION: 1. No acute infiltrates identified. 2. Near-complete clearance of thelingular infiltrate described on 04/18/2019. 3. Persistent abnormal opacity noted laterally in the right subapical region. This corresponds to the described opacity on the previous chest CT. Current Chest CT is pending at the time of this dictation, and will provide more accurate follow-up information regarding the opacity. Please see accompanying CT scan of the chest for follow-up recommendations. 4. Mild cardiomegaly. SL:01 at 1812 Reported and signed by: Shekhar Osman M.D. PAGE 1 Signed Report (CONTINUED) FAX: Oumar Salinas MD [phone] [place]: St : REG ---- Name: TOM CLINTON [facility] : 1950 Age/S: 69/M [address] [place] [address] Unit # : [id number] Loc: [place], [place] [address]Yczh: Oumar Salinas MD Acct: [id number] Dis Date: Status: REG ER PHONE #: [phone] Exam Date: 06/04/2019 4363 FAX #: [phone] Reason: r/o pneumonia EXAMS: CPT CODE: [id number] CHEST 1 V 43900 <Continued> CC: Oumar Salinas MD Technologist: RT Zakia(R) Trnscrd Date/ Time/By: 06/04/2019 (1811) : By: Davonte Orig Print D/T: S: 2018 (1658) PAGE 2 Signed ReportHEPATIC FUNCTION [id number] 18:09:00 Test Item Value Reference Range Comments TOTAL PROTEIN (test code=PROT) 7.1 g/dL 6.4-8.2 ALBUMIN (test code=ALB) 3.90 g/dL 3.4-5.0 BILIRUBIN TOTAL (test code=BILT) 0.7 MG/DL <1.5 BILIRUBIN DIRECT (test code=BILD) 0.20 MG/DL 0.0-0.30 BILIRUBIN INDIRECT (test code=BILIND) 0.50 MG/DL SGOT/AST (test code=AST) 51 IUnit/L 15-37 SGPT/ALT (test code=ALT) 52 IUnit/L 15-65 ALKALINE PHOSPHATASE TOTAL (test code=ALKP) 70 IUnit/L 20-125 [id number] 18:09:00 Test Item Value Reference Range Comments LIPASE (test code=LIP) 47 IUnit/L 73-393 [id number] 18:09:00 Test Item Value Reference Range Comments MAGNESIUM (test code=MAG) 1.80 mg/dL 1.8-2.4 TSH REFLEX TO [id number] 18:09:00 Test Item Value Reference Range Comments TSH REFLEX TO FT4 (test code=TSHREFLEX) 2.44 IU/mL 0.42-5.47 [id number] 18:09:00 Test Item Value Reference Range Comments TROPONIN-I (test 0.023 ng/mL 0.000-0.045 Negative: <=0.045 code=TROPI) Positive: >=0.046 Correlation with serial results, other cardiac markers andclinical findings is necessary to determine the clinicalsignificance of this result. Results using different methodologies should not be comparedto one another as quantitative results may vary by method. HEPATIC FUNCTION [id number] 18:06:00 Test Item Value Reference Range Comments TOTAL PROTEIN (test code=PROT) 7.1 g/dL 6.4-8.2 ALBUMIN (test code=ALB) 3.90 g/dL 3.4-5.0 BILIRUBIN TOTAL (test code=BILT) 0.7 MG/DL <1.5 BILIRUBIN DIRECT (test code=BILD) 0.20 MG/DL 0.0-0.30 BILIRUBIN INDIRECT (test code=BILIND) 0.50 MG/DL SGOT/AST (test code=AST) 51 IUnit/L 15-37 SGPT/ALT (test code=ALT) 52 IUnit/L 15-65 ALKALINE PHOSPHATASE TOTAL (test code=ALKP) 70 IUnit/L 20-125 [id number] 18:06:00 Test Item Value Reference Range Comments LIPASE (test code=LIP) 47 IUnit/L 73-393 [id number] 18:06:00 Test Item Value Reference Range Comments MAGNESIUM (test code=MAG) 1.80 mg/dL 1.8-2.4 TSH REFLEX TO [id number] 18:06:00 Test Item Value Reference Range Comments TSH REFLEX TO FT4 (test code=TSHREFLEX) IU/mL 0.42-5.47 [id number] 18:06:00 Test Item Value Reference Range Comments TROPONIN-I (test 0.023 ng/mL 0.000-0.045 Negative: <=0.045 code=TROPI) Positive: >=0.046 Correlation with serial results, other cardiac markers andclinical findings is necessary to determine the clinicalsignificance of this result. Results using different methodologies should not be comparedto one another as quantitative results may vary by method. UA RFLX MICR CULT IF [id number] 18:05:00 Test Item Value Reference Range Comments UA COLOR (test code=COLU) BELÉN YEL/STRAW UA APPEARANCE (test code=APPU) CLEAR CLEAR UA GLUCOSE DIPSTICK (test code=DGLUU) NEGATIVE NEGATIVE UA BILIRUBIN DIPSTICK (test code=BILU) NEGATIVE NEGATIVE UA KETONE DIPSTICK (test code=KETU) TRACE NEGATIVE UA SPECIFIC GRAVITY (test code=SGU) 1.020 1.005-1.030 UA BLOOD DIPSTICK (test code=ALPHONSE) NEGATIVE NEGATIVE UA PH DIPSTICK (test code=WAYNE) 5.0 5.0-7.0 UA PROTEIN DIPSTICK (test code=PROU) 2+ NEGATIVE UA UROBILINIOGEN DIPSTICK (test code=URO) 0.2 mg/dL 0.2-1.0 UA NITRITE DIPSTICK (test code=SUMANTH) NEGATIVE NEGATIVE UA LEUKOCYTE ESTERASE DIPSTICK (test TRACE NEGATIVE code=LEUU) UA WBC (test code=WBCU) 4-9 WBC/HPF 0-3 UA RBC (test code=RBCU) 4-10 RBC/HPF 0-3 UA WBC NO REFLEX (test code=WBCUCL) 4-9 WBC/HPF 0-3 UA BACTERIA (test code=BACU) NONE SEEN /HPF NONE SEEN UA SQUAMOUS CELLS (test code=SQU) 0-5 /HPF NONE SEEN UA HYALINE CAST (test code=HYALU) 11-20 /LPF NONE SEEN UA MUCUS (test code=MUCU) TRACE /LPF NONE SEEN Indication for culture: Sev. Sepsis-no other src Temperature > 100.4 FSpecimen Description: CLEAN [id number] 17:53:00 Test Item Value Reference Range Comments D-DIMER (test 1374 ng/mlFEU <=500 THROMBOSIS AND/OR PULMONARY code=DDIMER) EMBOLISM AND THE CLINICAL CUT- OFF VALUE FOR EXCLUSION (500 ng/mL FEU) OF THESE CONDITIONSIS VALIDATED BY THE ALMOND PAN FINISHER OF THE METHOD. A NEGATIVE D-DIMER RESULT WHEN COMBINED WITH A CLINICALASSESSMENT OF LOW PRETEST PROBABILITY HAS BEEN SHOWN TO HAVEA HIGH NEGATIVE PREDICTIVE VALUE OF DVT OR PE. D-DIMER VALUES >500 ng/mL FEU ARE NOT DIAGNOSTIC FOR DVT, PEor DIC WITHOUT OTHER CONFIRMATORY TESTS AND APPROPRIATECLINICAL EUALUATIONS. CBC W/AUTO [id number] 17:43:00 Test Item Value Reference Range Comments WHITE BLOOD CELL (test code=WBC) 11.45 x10 3/uL 4.5-11.0 RED BLOOD CELL (test code=RBC) 4.54 x10 6/uL 4.00-5.60 HEMOGLOBIN (test code=HGB) 13.7 g/dL 12.5-16.9 HEMATOCRIT (test code=HCT) 43.2 % 37.5-50.7 MEAN CELL VOLUME (test code=MCV) 95.2 fL 81.0-99.0 MEAN CELL HGB (test code=MCH) 30.2 pg 27.0-33.0 MEAN CELL HGB CONCETRATION (test code=MCHC) 31.7 g/dL 33.0-37.0 RED CELL DISTRIBUTION WIDTH CV (test 14.9 % 11.5-14.5 code=RDW) RED CELL DISTRIBUTION WIDTH SD (test 50.5 fL 37.0-54.0 code=RDW-SD) PLATELET COUNT (test code=PLT) 222 x10 3/uL 150-400 MEAN PLATELET VOLUME (test code=MPV) 10.2 fL 7.0-9.0 NEUTROPHIL % (test code=NT%) 75.2 % 56.0-77.0 IMMATURE GRANULOCYTE % (test code=IG%) 0.5 % 0.0-2.0 LYMPHOCYTE % (test code=LY%) 13.1 % 14.0-32.0 MONOCYTE % (test code=MO%) 10.1 % 4.8-9.0 EOSINOPHIL % (test code=EO%) 0.8 % 0.3-3.7 BASOPHIL % (test code=BA%) 0.3 % 0.0-2.0 NUCLEATED RBC % (test code=NRBC%) 0.0 % 0-0 NEUTROPHIL # (test code=NT#) 8.60 x10 3/uL 2.0-7.6 IMMATURE GRANULOCYTE # (test code=IG#) 0.06 x10 3/uL 0.00-0.03 LYMPHOCYTE # (test code=LY#) 1.50 x10 3/uL 1.0-3.8 MONOCYTE # (test code=MO#) 1.16 x10 3/uL 0.1-0.8 EOSINOPHIL # (test code=EO#) 0.09 x10 3/uL 0.0-0.2 BASOPHIL # (test code=BA#) 0.04 x10 3/uL 0.0-0.2 NUCLEATED RBC # (test code=NRBC#) 0.00 x10 3/uL 0.0-0.1 MANUAL DIFF REQUIRED (test code=MDIFF) NO CHEMISTRY 8 [id number] 17:30:00 Test Item Value Reference Range Comments ISTAT-SODIUM (test code=NAP) MMOL/L 134-147 ISTAT-POTASSIUM (test code=KP) MMOL/L 3.4-5.0 ISTAT-CHLORIDE (test code=CLP) MMOL/L 100-108 ISTAT CARBON DIOXIDE (test code=ISTAT-CO2) mmol/L 21-33 ISTAT CALCIUM IONIZED (test code=ISTAT-JOSH) MG/DL 1.12-1.32 ISTAT-GLUCOSE (test code=GLUP) MG/DL 70-110 ISTAT-BUN (test code=BUNP) MG/DL 7-18 BEDSIDE CREATININE (test code=CREATBED) MG/DL 0.6-1.3 GLOMERULAR FILTRATION RATE POC (test code=GFRBED) 46 ML/MIN CHEMISTRY 8 [id number] 17:30:00 Test Item Value Reference Range Comments ISTAT-SODIUM (test code=NAP) 136 MMOL/L 134-147 ISTAT-POTASSIUM (test 3.8 MMOL/L 3.4-5.0 code=KP) ISTAT-CHLORIDE (test 98 MMOL/L 100-108 Performed by certified code=CLP) 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 [facility] ISTAT CARBON DIOXIDE (test 26.0 mmol/L 21-33 code=ISTAT-CO2) ISTAT CALCIUM IONIZED (test 1.14 MG/DL 1.12-1.32 code=ISTAT-JOSH) ISTAT-GLUCOSE (test 134 MG/DL 70-110 code=GLUP) ISTAT-BUN (test code=BUNP) 27 MG/DL 7-18 BEDSIDE CREATININE (test 1.6 MG/DL 0.6-1.3 code=CREATBED) GLOMERULAR FILTRATION RATE 46 ML/MIN POC (test code=GFRBED) TROPONIN-I [id number] 17:28:00 Test Item Value Reference Range Comments TROPONIN-I RAPID (test 0.02 ng/mL 0.00-0.08 Performed by certified shotgun shell loading machine operator code=TROPIRAP) at [facility] Negative: <=0.08 Positive: >=0.09An elevated troponin value alone is not sufficient todiagnose a myocardial infarction. Rather, the patient sclinical presentation (history, physical exam) and ECGshould be used in conjunction with troponin in thediagnostic evaluation of suspected myocardial infarction. Aserial sampling protocol is recommended to facilitate the identification of temporal changes in troponin levels characteristic of MO. 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 [facility] - CTA CHEST FOR [id number] 11:56:00 Name: YASH CLINTON [facility] Rachel Benton : 1950 Age/S: 69 / M [address] [place] [address] Unit #: [id number] Loc: [place] [id number] Phys: Dominic Duran MD Acct: [id number] Dis Date: 04/20/2019 Status: DIS IN PHONE #: [phone] Exam Date: 04/18/20191955 FAX #: [phone] Reason: LLL PNEUMONIA, COPD EAX, R/O PE Report Has Been Amended * * EXAMS: CPT CODE: [id number] [place] [address] Addendum - 05/13/2019 SIGNED 05/13/[address]: [id number]/CTCHEPE ADDENDUM: CTA chest of 04/18 is reviewed as part of routine quality assurance representative [facility] In addition to described opacities in the left lung superimposed on a background of emphysema, there is an ill- defined elongated nodular opacity in the subpleural anterior right upper lobe, new from prior examination and outside area of consolidation present on that examination. Lesion is bandlike with indistinct margins blending imperceptibly with the pleural surface measuring up to 12 mm thickness , notably axial series 4 images 58-62 and coronal series 6 image 46. Focal scarring, atelectasis, acute airspace disease and neoplasm in the differential. Further workup is recommended. Imaging options include short interval follow-up noncontrast CT with further imaging by PET/CT if this abnormality persists. A verbal report was called to Dr. Cueva, consulting navigating officer on 05/13/2019 [id number] hours. at 1156 Reported and signed by : Marco A Blanton M.D. Report STUDY: - CTA CHEST FOR PE 04/18/2019 5:55 AM Ordering Physician: Dominic Duran MD Patient Name: YASH CLINTON MR: [id number] : 1950; Age: 69 years y/o Male Clinical Indication: LLL PNEUMONIA, COPD EAX, R/O PE Comparison: None TECHNIQUE: Sequential trans-axial images were obtained with a multi-detector helical CT after iodinated contrast administration. PAGE 1 Signed Report (CONTINUED) Name: YASH CLINTON [facility] [place] : 1950 Age/S: 69 / M [address] [place] [address] Unit #: [id number] Loc: [place] [address] Phys: Dominic Duran MD Acct: [id number] Dis Date: 04/20/2019 Status: DIS IN PHONE #: [phone] Exam Date: 04/18/20191955 FAX #: [phone] Reason: LLL PNEUMONIA, COPD EAX, R/O PE Report Has Been Amended EXAMS: CPT CODE: [id number] [place] [address] <Continued> Coronal, sagittal, and 3-D MIP reconstructions were performed. IV CONTRAST: 100cc Omnipaque 300 DLP DOSE: CT imaging performed at this location utilizes radiation dose optimization technique which includes one or more of the followin ) Automated exposure control; 2) Adjustment of the mA and/or kV according to patient's size; 3) Use of iterative reconstruction techniques. DLP ( mGy-cm): 210 FINDINGS: VASCULAR EVALUATION THORACIC AORTA: Normal caliber without aneurysm or dissection. PULMONARY ARTERIES: No evidence of central pulmonary embolus. NONVASCULAR EVALUATION LUNGS: Diffuse pulmonary emphysema without consolidation, pleural effusion, or pneumothorax. Right apical scarring. Ground glass and airspace opacities in the left lung base. AIRWAY: Clear central tracheobronchial tree. HEART: Normal size heart. MEDIASTINUM AND HECTOR: No hilar or mediastinal lymphadenopathy. VISUALIZED UPPER ABDOMEN: No significant abnormality. SOFT TISSUES: No suspicious soft tissue lesion or abnormality. OSSEOUS STRUCTURES: Mild spinal degenerative change without fracture, dislocation, or focal osseous lesion. IMPRESSION: 1. No pulmonary embolism. PAGE 2 Signed Report ( CONTINUED) Name: YASH CLINTON [facility] [place] : 1950 Age/S: 69 /M [address] [place] [address] Unit #: [id number] Loc: [place]EN [address] Phys : Dominic Duran MD Acct: [id number] Dis Date: 04/20/2019 Status: DIS IN PHONE #: [phone] Exam Date: 04/18/20191955 FAX #: [phone] Reason: LLL PNEUMONIA, COPD EAX, R/O PE Report Has Been Amended EXAMS: CPT CODE: [id number] [place] [address] <Continued> 2. Diffuse pulmonary emphysema and leftlower lung opacities representing pneumonia or atelectasis. SL:[id number] at 1203 Reported and signed by: Andrade Alfaro M.D. CC: Marcia Santana MD; Dominic Duran MD Technologist:Anabel Hussein, RT(R)(CT) CTDI: DLP: TrnscbDate/Time: 04/19/2019 ( 0683) [email or web address] Orig Print D/T: S: 04/19/2019 (6637) PAGE 3 Signed ReportRHEUMATOID FACTOR [id number] 10 :10:00 Test Item Value Reference Range Comments RHEUMATOID FACTOR SCREEN (test 14.4 IU/mL 0.0-13.9 Performed At: [facility] code=RA) [address] [id number] Nilson Aguilar MD Ph:[phone] BASIC METABOLIC [id number] 08:00:00 Test Item Value Reference Range Comments SODIUM (test code=NA) 139 mEq/L 134-147 POTASSIUM (test code=K) 4.1 mEq/L 3.4-5.0 CHLORIDE (test code=CL) 107 mEq/L 100-108 CARBON DIOXIDE (test code=CO2) 27 mEq/L 21-33 ANION GAP (test code=GAP) 9 0-20 GLUCOSE (test code=GLU) 113 mg/dL 70-110 BLOOD UREA NITROGEN (test 17 mg/dL 7-18 code=BUN) GLOMERULAR FILTRATION RATE 95.6 70-80 Units of measure=ml/min/1.73 (test code=GFR) m2 CREATININE (test code=CREAT) 0.8 mg/dL 0.6-1.3 CALCIUM (test code=CA) 8.6 mg/dL 8.0-10.5 CBC W/AUTO [id number] 07:43:00 Test Item Value Reference Range Comments WHITE BLOOD CELL (test code=WBC) 10.96 x10 3/uL 4.5-11.0 RED BLOOD CELL (test code=RBC) 4.46 x10 6/uL 4.00-5.60 HEMOGLOBIN (test code=HGB) 13.5 g/dL 12.5-16.9 HEMATOCRIT (test code=HCT) 41.1 % 37.5-50.7 MEAN CELL VOLUME (test code=MCV) 92.2 fL 81.0-99.0 MEAN CELL HGB (test code=MCH) 30.3 pg 27.0-33.0 MEAN CELL HGB CONCETRATION (test code=MCHC) 32.8 g/dL 33.0-37.0 RED CELL DISTRIBUTION WIDTH CV (test 14.0 % 11.5-14.5 code=RDW) RED CELL DISTRIBUTION WIDTH SD (test 47.8 fL 37.0-54.0 code=RDW-SD) PLATELET COUNT (test code=PLT) 257 x10 3/uL 150-400 MEAN PLATELET VOLUME (test code=MPV) 10.1 fL 7.0-9.0 NEUTROPHIL % (test code=NT%) 90.4 % 56.0-77.0 IMMATURE GRANULOCYTE % (test code=IG%) 0.3 % 0.0-2.0 LYMPHOCYTE % (test code=LY%) 7.3 % 14.0-32.0 MONOCYTE % (test code=MO%) 1.9 % 4.8-9.0 EOSINOPHIL % (test code=EO%) 0.0 % 0.3-3.7 BASOPHIL % (test code=BA%) 0.1 % 0.0-2.0 NUCLEATED RBC % (test code=NRBC%) 0.0 % 0-0 NEUTROPHIL # (test code=NT#) 9.91 x10 3/uL 2.0-7.6 IMMATURE GRANULOCYTE # (test code=IG#) 0.03 x10 3/uL 0.00-0.03 LYMPHOCYTE # (test code=LY#) 0.80 x10 3/uL 1.0-3.8 MONOCYTE # (test code=MO#) 0.21 x10 3/uL 0.1-0.8 EOSINOPHIL # (test code=EO#) 0.00 x10 3/uL 0.0-0.2 BASOPHIL # (test code=BA#) 0.01 x10 3/uL 0.0-0.2 NUCLEATED RBC # (test code=NRBC#) 0.00 x10 3/uL 0.0-0.1 MANUAL DIFF REQUIRED (test code=MDIFF) NO - XR L-SPINE 2/3 [id number] 14:00:00 FAX: Richardson HollidaySantanaMarcia Shila [place]: St: [facility] FAX: Dominic Alexis [phone] FAX: Steven Mirza Jr [phone] Name: YASH CLINTON [facility] : 1950 Age/S: 69/M [address] [place] [address] Bl Unit #: [id number] Loc: [address] [place] [address] Phys: Dominic Ellington Acct: [id number] Dis Date: Status: ADM IN PHONE #: [phone] Exam Date: 04/19/2019 1028 FAX #: [phone] Reason: lumbar pain EXAMS: CPT CODE: [id number] XR L-SPINE 2/3 VIEWS 73205 LUMBAR SPINE, 3 VIEWS: HISTORY: Lumbar pain. COMPARISON EXAMS: Pelvis and right hip examination of July 2018. FINDINGS: 5 lumbar-type vertebrae are present. Grade 1 spondylolisthesis is identified at L4-L5 with associated hypertrophy in the facet joints at L4-L5-S1. No evidence of acute compression fracture. Moderate diffuse lumbar degenerative disc disease with disc space narrowing and osteophyte formation. Partial sacralization of the L5 lateral elements bilaterally. IMPRESSION: 1. Moderate to severe osteoarthritic changes at L4-L5 with grade 1 spondylolisthesis. 2. Partial sacralization of L5 lateral elements. 3. Moderate diffuse lumbar degenerative disc disease. 4. No acute changes identified. SL:01 at 1400 Reported and signed by: Shekhar Osman M.D. CC: Marcia Santana MD; Dominic PERDUE; Steven Ayoub Jr, MD Technologist: RT Hallie(R) Trnscrd Date/Time/By: 04/19/2019 (1400) : By: [email or web address]/[email or web address] Orig Print D/T: S: (6261) PAGE 1 Signed Report- CTA CHEST FOR [id number] 12:03:00 Name: YASH CLINTON [facility] Rachel [place]enton : 1950 Age/S: 69 / M [address] [place], [place] [address] Unit #: [id number] Loc: [facility] [id number] Phys: Dominic Duran MD Acct: [id number] Dis Date: Status: ADM IN PHONE #: [phone] Exam Date: 1956 FAX #: [phone] Reason: LLL PNEUMONIA , COPD EAX, R/O PE EXAMS: CPTCODE: [id number] [place] [id number] STUDY: - CTA CHEST FOR PE 04/18/2019 5:55 AM Ordering Physician: Dominic Duran MD Patient Name: YASH CLINTON MR: [id number] : 1950; Age: 69 years y/o Male ClinicalIndication: LLL PNEUMONIA, COPD EAX, R/O PE Comparison: None TECHNIQUE: Sequential trans-axial images were obtained with a multi-detector helical CT after iodinated contrast administration. Coronal, sagittal, and 3-D MIP reconstructions were performed. IV CONTRAST: 100cc Omnipaque 300 DLP DOSE: CT imaging performed at this locationutilizes radiation dose optimization technique which includes one or more of the followin) Automated exposure control; 2) Adjustment of the mA and/or kV according to patient' s size; 3) Use of iterative reconstruction techniques. DLP (mGy-cm): 210 FINDINGS: VASCULAR EVALUATION THORACIC AORTA: Normal caliber without aneurysm or dissection. PULMONARY ARTERIES: No evidence of central pulmonary embolus. NONVASCULAR EVALUATION LUNGS: Diffuse pulmonary emphysema without consolidation, pleural effusion, or pneumothorax. Right apical scarring. Ground glass and airspace opacities in the left lung base. AIRWAY: Clear central tracheobronchial tree.HEART: Normal size heart. MEDIASTINUM AND HECTOR: No hilar or mediastinal lymphadenopathy. VISUALIZED UPPER ABDOMEN: No significant abnormality. PAGE 1 Signed Report (CONTINUED) Name: YASH CLINTON [facility] [place] : 1950 Age/S: 69 / M [address] [place] [address] Blvd Unit #: [id number] Loc: [place] [address] Phys: Dominic Duran MD Acct: [id number] Dis Date: Status: ADM IN PHONE #: [phone] Exam Date: 04/18/20191955 FAX #: [phone] Reason: LLL PNEUMONIA, COPD EAX, R/ O PE EXAMS: CPT CODE: [id number] [place] [address] <Continued> SOFT TISSUES: No suspicious soft tissue lesion or abnormality. OSSEOUS STRUCTURES: Mild spinal degenerative change without fracture, dislocation, or focal osseous lesion. IMPRESSION: 1. No pulmonary embolism. 2. Diffuse pulmonary emphysema and left lower lung opacities representing pneumonia or atelectasis. SL: [id number] at 1203 Reported and signed by: Andrade Alfaro M.D. CC: Marcia Santana MD; Dominic Duran MD Technologist:Anabel Hussein, RT(R)(CT) CTDI: DLP: Trnscb Date/Time: 04/19/2019 (1203) [email or web address] Orig Print D/T: S: 04/19/2019 (0807) PAGE 2 Signed Report- XR HAND 3 + V [id number] 11:42:00 FAX: Marcia Li [phone] [place]: St: [facility] FAX: Lam Mirza Jr [phone] Name: YASH CLINTON [facility] Rachel Benton : 1950 Age/S: 69/M [address] [place] [address] Unit #: [id number] Loc: G.608 [place] [address] Phys: Jenaro Ruffin MD Acct: [id number] Dis Date: Status: ADM IN PHONE #: [phone] Exam Date: 04/18/2019 1549 FAX #: [phone] Reason: HAND PAIN; POSSIBLE RA EXAMS: CPT CODE: [id number] XR HAND 3 + [place] [id number] BILATERAL HANDS: HISTORY: Bilateral hand pain. Possible rheumatoid arthritis. COMPARISON EXAMS: No prior pertinent exams for comparison. FINDINGS: LEFT HAND: 3 views of the left hand were obtained and show severe osteoarthritic changes at the first carpometacarpal joint with joint space narrowing, subluxation, and marginal osteophyte formation. Generalized narrowing is noted in the IP joints without marginal erosions or juxta-articular osteoporosis. RIGHT HAND: 3 views of the right hand show similar findings with moderate to severe osteoarthritic changes at the first carpometacarpal joint. Mild narrowing of the IP joints without marginal erosions or juxta- articular osteoporosis. There are probably old traumatic changes in the distal right ulna with some deformity at the radial ulnar articulation. IMPRESSION: 1. Moderate to severe typical osteoarthritis at the first carpometacarpal joints bilaterally. 2. Mild generalized joint space narrowingin the IP joints compatible with underlying osteoarthritis. 3. No evidence of an inflammatory arthropathy. SL:01 ElectronicallySigned by Gildardo Osman on 04/19/2019 at 1142 Reported and signed by: Shekhar Osman M.D. CC: Marcia Santana MD; Steven Ayoub Jr, MD Technologist: Beatrice Orozco, RT(R); Meg Suh RT(R) Trnscrd Date/Time/By: 04/19/2019 (1142) : By: Erik.[facility]/Erik.[facility] Orig Print D/T: S: 04/19/2019 (7442) PAGE 1 Signed ReportSED RATE [id number] 10:49:00 Test Item Value Reference Range Comments SED RATE JESSICA (test code=SEDW) 15 mm/hr 0-15 BASIC METABOLIC [id number] 07:09:00 Test Item Value Reference Range Comments SODIUM (test code=NA) 137 mEq/L 134-147 POTASSIUM (test code=K) 4.3 mEq/L 3.4-5.0 CHLORIDE (test code=CL) 105 mEq/L 100-108 CARBON DIOXIDE (test code=CO2) 26 mEq/L 21-33 ANION GAP (test code=GAP) 10 0-20 GLUCOSE (test code=GLU) 111 mg/dL 70-110 BLOOD UREA NITROGEN (test 18 mg/dL 7-18 code=BUN) GLOMERULAR FILTRATION RATE 95.6 70-80 Units of measure=ml/min/1.73 (test code=GFR) m2 CREATININE (test code=CREAT) 0.8 mg/dL 0.6-1.3 CALCIUM (test code=CA) 8.6 mg/dL 8.0-10.5 LIPID PROFILE (CORONARY RISK)2019-04-19 07:09:00 Test Item Value Reference Range Comments TRIGLYCERIDES (test 56 mg/dL 40-150 code=TRIG) CHOLESTEROL (test code=CHOL) 148 mg/dL <200 CHOLESTEROL/HDL RATIO (test 2.28 RATIO 3.43-4.97 RISK ASSOCIATED WITH CHOL/ HDL code=CHOLHDL) RATIOS: RISK MALE FEMALE1/2 AVERAGE 3.43 3.27AVERAGE 4.97 4.442X AVERAGE 9.55 7.053X AVERAGE 23.39 11.04 NOTE THAT THE REFERENCE VALUE IS RELATEDTO RISK LEVELS RECOMMENDED BY THE NATL.HEART, LUNG, AND BLOOD INST. HDL CHOLESTEROL (test 65.0 mg/dL 32-72 code=HDL) LIPOPROTEIN LDL (test 73 mg/dL 0-100 <100 [id number] NEAR code=LDL) OPTIMAL/ABOVE [id number] HIGH>WW=930 VERY HIGH*Guidelines provided by the National Cholesterol EducationProgram Adult Treatment Panel III CBC W/AUTO [id number] 06:24:00 Test Item Value Reference Range Comments WHITE BLOOD CELL (test code=WBC) 18.52 x10 3/uL 4.5-11.0 RED BLOOD CELL (test code=RBC) 4.14 x10 6/uL 4.00-5.60 HEMOGLOBIN (test code=HGB) 12.7 g/dL 12.5-16.9 HEMATOCRIT (test code=HCT) 38.8 % 37.5-50.7 MEAN CELL VOLUME (test code=MCV) 93.7 fL 81.0-99.0 MEAN CELL HGB (test code=MCH) 30.7 pg 27.0-33.0 MEAN CELL HGB CONCETRATION (test code=MCHC) 32.7 g/dL 33.0-37.0 RED CELL DISTRIBUTION WIDTH CV (test 13.9 % 11.5-14.5 code=RDW) RED CELL DISTRIBUTION WIDTH SD (test 47.6 fL 37.0-54.0 code=RDW-SD) PLATELET COUNT (test code=PLT) 258 x10 3/uL 150-400 MEAN PLATELET VOLUME (test code=MPV) 9.7 fL 7.0-9.0 NEUTROPHIL % (test code=NT%) 92.7 % 56.0-77.0 IMMATURE GRANULOCYTE % (test code=IG%) 0.5 % 0.0-2.0 LYMPHOCYTE % (test code=LY%) 4.6 % 14.0-32.0 MONOCYTE % (test code=MO%) 2.1 % 4.8-9.0 EOSINOPHIL % (test code=EO%) 0.0 % 0.3-3.7 BASOPHIL % (test code=BA%) 0.1 % 0.0-2.0 NUCLEATED RBC % (test code=NRBC%) 0.0 % 0-0 NEUTROPHIL # (test code=NT#) 17.16 x10 3/uL 2.0-7.6 IMMATURE GRANULOCYTE # (test code=IG#) 0.10 x10 3/uL 0.00-0.03 LYMPHOCYTE # (test code=LY#) 0.86 x10 3/uL 1.0-3.8 MONOCYTE # (test code=MO#) 0.38 x10 3/uL 0.1-0.8 EOSINOPHIL # (test code=EO#) 0.00 x10 3/uL 0.0-0.2 BASOPHIL # (test code=BA#) 0.02 x10 3/uL 0.0-0.2 NUCLEATED RBC # (test code=NRBC#) 0.00 x10 3/uL 0.0-0.1 MANUAL DIFF REQUIRED (test code=MDIFF) NO UA RFLX MICR CULT IF [id number] 12:19:00 Test Item Value Reference Range Comments UA COLOR (test code=COLU) BELÉN YEL/STRAW UA APPEARANCE (test code=APPU) SL CLOUDY CLEAR UA GLUCOSE DIPSTICK (test code=DGLUU) NEGATIVE NEGATIVE UA BILIRUBIN DIPSTICK (test code=BILU) NEGATIVE NEGATIVE UA KETONE DIPSTICK (test code=KETU) TRACE NEGATIVE UA SPECIFIC GRAVITY (test code=SGU) 1.027 1.005-1.030 UA BLOOD DIPSTICK (test code=ALPHONSE) NEGATIVE NEGATIVE UA PH DIPSTICK (test code=WAYNE) 5.0 5.0-7.0 UA PROTEIN DIPSTICK (test code=PROU) NEGATIVE NEGATIVE UA UROBILINIOGEN DIPSTICK (test code=URO) 0.2 mg/dL 0.2-1.0 UA NITRITE DIPSTICK (test code=SUMANTH) NEGATIVE NEGATIVE UA LEUKOCYTE ESTERASE DIPSTICK (test NEGATIVE NEGATIVE code=LEUU) UA WBC (test code=WBCU) 4-9 WBC/HPF 0-3 UA RBC (test code=RBCU) 4-10 RBC/HPF 0-3 UA WBC NO REFLEX (test code=WBCUCL) 4-9 WBC/HPF 0-3 UA BACTERIA (test code=BACU) NONE SEEN /HPF NONE SEEN UA SQUAMOUS CELLS (test code=SQU) NONE SEEN /HPF NONE SEEN UA HYALINE CAST (test code=HYALU) 0-2 /LPF NONE SEEN UA MUCUS (test code=MUCU) TRACE /LPF NONE SEEN Indication for culture: Temperature > 100.4 FSpecimen Description: CLEAN [id number] 07:48:00 Test Item Value Reference Range Comments TROPONIN-I (test < 0.015 ng/mL 0.000-0.045 Negative: <=0.045 code=TROPI) Positive: >=0.046 Correlation with serial results, other cardiac markers andclinical findings is necessary to determine the clinicalsignificance of this result. Results using different methodologies should not be comparedto one another as quantitative results may vary by method. COMMENTS: 3 troponins total (including troponin done in ED)T4 [id number] 06: 48:00 Test Item Value Reference Range Comments T4 FREE (test code=T4F) 1.1 ng/dL 0.77-1.61 ADD ON COMMENTS: 3 troponins total (including troponin done in ED)THYROID STIMULATING [id number] 06:48:00 Test Item Value Reference Range Comments THYROID STIMULATING HORMONE (test 1.32 0.42-5.47 Results in li- International code=TSH) Units/mL ADD ON COMMENTS: 3 troponins total (including troponin done in ED)[id number] 06:48:00 Test Item Value Reference Range Comments TROPONIN-I (test < 0.015 ng/mL 0.000-0.045 Negative: <=0.045 code=TROPI) Positive: >=0.046 Correlation with serial results, other cardiac markers andclinical findings is necessary to determine the clinicalsignificance of this result. Results using different methodologies should not be comparedto one another as quantitative results may vary by method. ADD ON COMMENTS: 3 troponins total (including troponin done in ED)B-TYPE NATRIURETIC [id number] 04:23:00 Test Item Value Reference Range Comments B-TYPE NATRIURETIC PEPTIDE (test code=BNP) 14.8 PG/ML 0-100 BASIC METABOLIC [id number] 04:16:00 Test Item Value Reference Range Comments SODIUM (test code=NA) 141 mEq/L 134-147 POTASSIUM (test code=K) 4.0 mEq/L 3.4-5.0 CHLORIDE (test code=CL) 107 mEq/L 100-108 CARBON DIOXIDE (test code=CO2) 29 mEq/L 21-33 ANION GAP (test code=GAP) 9 0-20 GLUCOSE (test code=GLU) 102 mg/dL 70-110 BLOOD UREA NITROGEN (test 10 mg/dL 7-18 code=BUN) GLOMERULAR FILTRATION RATE 95.6 70-80 Units of measure=ml/min/1.73 (test code=GFR) m2 CREATININE (test code=CREAT) 0.8 mg/dL 0.6-1.3 CALCIUM (test code=CA) 7.8 mg/dL 8.0-10.5 HEPATIC FUNCTION [id number] 04:16:00 Test Item Value Reference Range Comments TOTAL PROTEIN (test code=PROT) 6.7 g/dL 6.4-8.2 ALBUMIN (test code=ALB) 3.60 g/dL 3.4-5.0 BILIRUBIN TOTAL (test code=BILT) 0.5 MG/DL <1.5 BILIRUBIN DIRECT (test code=BILD) 0.10 MG/DL 0.0-0.30 BILIRUBIN INDIRECT (test code=BILIND) 0.40 MG/DL SGOT/AST (test code=AST) 20 IUnit/L 15-37 SGPT/ALT (test code=ALT) 13 IUnit/L 15-65 ALKALINE PHOSPHATASE TOTAL (test code=ALKP) 43 IUnit/L 20-125 [id number] 04:16:00 Test Item Value Reference Range Comments MAGNESIUM (test code=MAG) 1.40 mg/dL 1.8-2.4 [id number] 04:16:00 Test Item Value Reference Range Comments TROPONIN-I (test < 0.015 ng/mL 0.000-0.045 Negative: <=0.045 code=TROPI) Positive: >=0.046 Correlation with serial results, other cardiac markers andclinical findings is necessary to determine the clinicalsignificance of this result. Results using different methodologies should not be comparedto one another as quantitative results may vary by method. - XR CHEST 1 [id number] 04:13:00 FAX: Rah Malone MD [place]: St: [facility] FAX: Marcia Li [phone] FAX: Cosmo Fontenot MD [phone] Name: YASH CLINTON [facility] Tal[place] : 1950 Age/S: 69/[address] Unit #: [id number] Loc: [place] [address] Phys: Cosmo Villatoro MD Acct: [id number] Dis Date: Status: REG ER PHONE #: [phone] Exam Date: 04/18 FAX #: [phone] Reason: SOB EXAMS: CPT CODE: [id number] XR CHEST 1 V 92291 EXAM: CR, XR chest one view: 04/18/2019, 0356 hours HISTORY: SOB TECHNIQUE: 1 view of the chest. COMPARISON: 09/10/2018 FINDINGS: Trachea is midline. Cardiomediastinal silhouette is stable. Pulmonary vascularity is unremarkable. Patchy infiltrate in the left mid to lower lung. There is no pleural effusion or pneumothorax. Chronic elevation of the left hemidiaphragm, similar tothe previous study. Osseous structures are stable. IMPRESSION: Left perihilar and lower lobe pneumonia. SL: [JSYED-H] at 0413 Reported and signed by: Gildardo Valle CC: Rah Cueva MD; Marcia Santana MD; Cosmo Villatoro MD Technologist: Farrukh Hdez, RT(R ); Casimiro Caballero RT(R) Trnscrd Date/Time/By: 04/18/2019 (0413) : By: [email or web address] Orig Print D/T: S: 04/18/2019 (0416) PAGE 1 Signed ReportLACTIC [id number] 04:09:00 Test Item Value Reference Range Comments LACTIC ACID (test code=LACT) 1.2 mmol/L 0.4-1.9 PROTHROMBIN [id number] 03:57:00 Test Item Value Reference Range Comments PROTHROMBIN TIME PATIENT 12.4 SECONDS 9.3-12.9 (test code=PTP) INTERNATIONAL NORMAL RATIO 1.1 0.8-1.2 TARGET INR BY (test code=INR) INDICATION Indication INR1. Prophylaxis of venous thrombosis 2.0 - 3.0 (orthopedic surgery), Prophylaxis of venous thrombosis (other than high-risk surgery), Treatment of Deep Vein Thrombosis/Pulmonary Embolism, Prevention of systemic embolism - Tissue heart valves, Acute Myocardial Infarction (to prevent systemic embolism), Valvular heart disease, Atrial Fibrillation, Bileaflet mechanical valve in aortic position.2. Mechanical prosthetic valves (high risk), 2.5 - 3.5 Presence of Lupus Anticoagulant or Antiphospholipid Antibodies, Prevention of systemic embolism - Acute Myocardial Infarction (to prevent recurrent infarct). CBC W/AUTO [id number] 03:51:00 Test Item Value Reference Range Comments WHITE BLOOD CELL (test code=WBC) 10.39 x10 3/uL 4.5-11.0 RED BLOOD CELL (test code=RBC) 4.69 x10 6/uL 4.00-5.60 HEMOGLOBIN (test code=HGB) 13.7 g/dL 12.5-16.9 HEMATOCRIT (test code=HCT) 43.3 % 37.5-50.7 MEAN CELL VOLUME (test code=MCV) 92.3 fL 81.0-99.0 MEAN CELL HGB (test code=MCH) 29.2 pg 27.0-33.0 MEAN CELL HGB CONCETRATION (test code=MCHC) 31.6 g/dL 33.0-37.0 RED CELL DISTRIBUTION WIDTH CV (test 13.3 % 11.5-14.5 code=RDW) RED CELL DISTRIBUTION WIDTH SD (test 45.0 fL 37.0-54.0 code=RDW-SD) PLATELET COUNT (test code=PLT) 256 x10 3/uL 150-400 MEAN PLATELET VOLUME (test code=MPV) 9.4 fL 7.0-9.0 NEUTROPHIL % (test code=NT%) 84.9 % 56.0-77.0 IMMATURE GRANULOCYTE % (test code=IG%) 0.4 % 0.0-2.0 LYMPHOCYTE % (test code=LY%) 11.6 % 14.0-32.0 MONOCYTE % (test code=MO%) 2.7 % 4.8-9.0 EOSINOPHIL % (test code=EO%) 0.3 % 0.3-3.7 BASOPHIL % (test code=BA%) 0.1 % 0.0-2.0 NUCLEATED RBC % (test code=NRBC%) 0.0 % 0-0 NEUTROPHIL # (test code=NT#) 8.82 x10 3/uL 2.0-7.6 IMMATURE GRANULOCYTE # (test code=IG#) 0.04 x10 3/uL 0.00-0.03 LYMPHOCYTE # (test code=LY#) 1.21 x10 3/uL 1.0-3.8 MONOCYTE # (test code=MO#) 0.28 x10 3/uL 0.1-0.8 EOSINOPHIL # (test code=EO#) 0.03 x10 3/uL 0.0-0.2 BASOPHIL # (test code=BA#) 0.01 x10 3/uL 0.0-0.2 NUCLEATED RBC # (test code=NRBC#) 0.00 x10 3/uL 0.0-0.1 MANUAL DIFF REQUIRED (test code=MDIFF) NO ARTERIAL BLOOD [id number] 03:37:00 Test Item Value Reference Range Comments ARTERIAL BLOOD GAS PH (test 7.342 7.35-7.45 code=PHA) ARTERIAL BLOOD GAS PCO2 (test 51.2 mmHg 35-45 code=PCO2A) ARTERIAL BLOOD GAS PO2 (test 54 mmHg 80-100 code=PO2A) BICARBONATE TOTAL HCO3 (test 27.2 mmol/L 22.0-26.0 code=HCO3) BASE EXCESS (test code=JACQUELIN) 2.0 mmol/L -4-4 ABG O2 SATURATION (test 81 % 90-100 code=SATA) FIO2 (test code=FIO2A) 60 % ABG DELIVERY (test code=TERRI) Bipap ABG VENT RESP RATE (test 14 /MIN Performed by certified code=RRA) 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 [facility] ABG TEMPERATURE (test 102.4 F code=TEMPA) ABG SITE (test code=SITEA) R Rad PREDICTED AA GRADIENT (test 95 code=AP) PREDICTED PO2 (test code=OP) 271 a/A RATIO (test code=RATIO) 0.15 TCO2 ARTERIAL (test 29 code=TCO2A) A-A GRADIENT (test 312 code=AAGRADE) - XR CHEST 2 [id number] 16:49:00 FAX: Rah Malone MD [phone] [place]: St: REG FAX: Marcia Li [phone] --- Name: YASH CLINTON [facility] Rachel Benton : 1950 Age/S: 68/M [address] [place] [address] Unit #: [id number] Loc: [place] [address] Phys: Rah Cueva MD Acct: [id number] Dis Date: Status: REG CLI PHONE #: [phone] Exam Date: 09/10/2018 1631 FAX #: [phone] Reason: R94.2 ,ABNORMAL RESULTS OF PULMONARY FUNCTION EXAMS: CPT CODE: [id number] XR CHEST 2 V 60619 Clinical Indication: R94.2 , ABNORMAL RESULTS OF PULMONARY FUNCTION STUDIES. Comparison: Chest x-ray July 20, 2018 FINDINGS: The frontal and lateral chest radiographs show normal lung volumes. Airspace opacity is seen in the right lower lobe, moderately improved since previous. No pleural effusions are present. No pneumothorax is seen.The heart is normal in size. The trachea is midline. There are no clinically significant osseous abnormalities noted. IMPRESSION: Airspace opacity in the right lower lobe, markedly improved since previous. The small right pleural effusion seen in the last exam has resolved. SL: [id number] at 5756 Reported and signed by: Sylvester Duran M.D. CC: Rah Cueva MD; Marcia Santana MD Technologist: RT Maribel(R) Trnscrd Date/Time/By: 09/10/2018 (6469) : By: Karma.LNV Orig Print D/T : S: 09/10/2018 (1506) PAGE 1 Signed ReportSURGICAL [id number] 13:24:00 RUN DATE: [facility] *LIVE* PAGE 1 RUN TIME: 1324 Specimen Inquiry RUN USER: INTERFACE PATIENT: YASH CLINTON LOC: [place] U #: [id number] AGE/SX: 68/M ROOM: [facility] REREG DR: Radha Hernandez : [birth year] BED: 1 DIS: 07/29/18 STATUS: DIS IN TLOC: SPEC #: [id number] RECD: 07/29/18 STATUS: CLIFFORD REErika #: [id number] GRADY: 07/29/18 [facility] DR: Radha Hernandez MD ENTERED: 07/30/18 SP TYPE: SURG SPEC OTHR DR: Self Referred Alexandra Carvajal MD,Danuta Cueva,Rah Kline,Shanti Gonsalez,Alphonso Fox,Vipul Singh,Criselda Agarwal,Chuck Hilton,Ayo Santana,Marcia Cooley,Trevon Villaseñor,Karlo Nguyễn,Dae Stauffer MD, MDORDERED: GM LEVEL 4 CODES: [id number] - URINE COPIES TO: Self Referred Alexandra Carvajal MD [address] [place] [address] [place] [address] [facility] [address], [address] [place] [address] Danuta Miner MD [address] [facility] [address] [place] [address] Rah Cueva MD [address] [facility] [address] [place] [address] CONTINUED ON NEXT PAGE RUN DATE: 08/01/18 [facility] *LIVE* PAGE 2 RUN TIME: 1324 Specimen Inquiry RUN USER: INTERFACE SPEC #: [id number] PATIENT: YASH CLINTON #[id number] (Continued) COPIES TO: ( Continued) Shanti Kline MD [address] [place], [place] [id number] Alphonso Gonsalez MD [address] [place] [address] Vipul Fox DO [address] [facility] [address] [facility] [address] [place] [address] Criselda Salinas MD [address] [facility] [place] [address] [place] [address] [place] [address] [address] [place] [address] [email or web address] Ayo Hilton MD [address] [id number] Marcia Santana MD [address] [place] [address] [email or web address] Trevon Cooley MD [address] [phone] [place] [address] [place] [address] CONTINUED ON NEXT PAGE -------- ----RUN DATE: 08/01/18 [facility] *LIVE* PAGE 3 RUN TIME: 1324 Specimen Inquiry RUN USER: INTERFACE ------ ------SPEC #: [id number] PATIENT: YASH CLINTON # [id number] (Continued) COPIES TO: (Continued) Tab Nguyễn MD [address] [place], [place] [id number] Dae Fraser MD [address] [phone] PROCEDURES: GM LEVEL 4 (Incomplete) TISSUES: 1. URINE - Urine, cytology FINAL DIAGNOSIS Urine, cytology, cytospin smears: No malignancy seen. GROSS AND MICROSCOPIC GROSS DESCRIPTION: Received are 7 cc of brown urine for cytologic evaluation. MICROSCOPIC EXAMINATION: The urine cytospinsmears reveal occasional urothelial cells and some lymphoid cells without evidence of malignancy. POST-OP DIAGNOSIS None given PRE-OP DIAGNOSIS Urine retention , tobacco abuse Signed SIGNATURE ON FILE Ting Mcmillan MD 08/01/18 1324 END OF REPORT [id number] 18:06:00 Test Item Value Reference Range Comments GLUBED (test code=GLUBED) 111 MG/DL 70-110 Performed by 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 [facility] [id number] 12:25:00 Test Item Value Reference Range Comments GLUBED (test code=GLUBED) 115 MG/DL 70-110 Performed by 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 [facility] [id number] 17:40:00 Test Item Value Reference Range Comments GLUBED (test code=GLUBED) 109 MG/DL 70-110 Performed by 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 [facility] [id number] 11:52:00 Test Item Value Reference Range Comments GLUBED (test code=GLUBED) 115 MG/DL 70-110 Performed by 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 [facility] B-TYPE NATRIURETIC [id number] 10:03:00 Test Item Value Reference Range Comments B-TYPE NATRIURETIC PEPTIDE (test code=BNP) 14.0 PG/ML 0-100 CBC W/AUTO [id number] 08:43:00 Test Item Value Reference Range Comments WHITE BLOOD CELL (test code=WBC) 8.67 x10 3/uL 4.5-11.0 RED BLOOD CELL (test code=RBC) 3.10 x10 6/uL 4.00-5.60 HEMOGLOBIN (test code=HGB) 9.1 g/dL 12.5-16.9 HEMATOCRIT (test code=HCT) 30.1 % 37.5-50.7 MEAN CELL VOLUME (test code=MCV) 97.1 fL 81.0-99.0 MEAN CELL HGB (test code=MCH) 29.4 pg 27.0-33.0 MEAN CELL HGB CONCETRATION (test code=MCHC) 30.2 g/dL 33.0-37.0 RED CELL DISTRIBUTION WIDTH CV (test code=RDW) 15.7 % 11.5-14.5 RED CELL DISTRIBUTION WIDTH SD (test 55.6 fL 37.0-54.0 code=RDW-SD) PLATELET COUNT (test code=PLT) 458 x10 3/uL 150-400 MEAN PLATELET VOLUME (test code=MPV) 9.6 fL 7.0-9.0 NEUTROPHIL % (test code=NT%) 57.0 % 56.0-77.0 IMMATURE GRANULOCYTE % (test code=IG%) 0.3 % 0.0-2.0 LYMPHOCYTE % (test code=LY%) 34.0 % 14.0-32.0 MONOCYTE % (test code=MO%) 7.2 % 4.8-9.0 EOSINOPHIL % (test code=EO%) 1.0 % 0.3-3.7 BASOPHIL % (test code=BA%) 0.5 % 0.0-2.0 NUCLEATED RBC % (test code=NRBC%) 0.0 % 0-0 NEUTROPHIL # (test code=NT#) 4.94 x10 3/uL 2.0-7.6 IMMATURE GRANULOCYTE # (test code=IG#) 0.03 x10 3/uL 0.00-0.03 LYMPHOCYTE # (test code=LY#) 2.95 x10 3/uL 1.0-3.8 MONOCYTE # (test code=MO#) 0.62 x10 3/uL 0.1-0.8 EOSINOPHIL # (test code=EO#) 0.09 x10 3/uL 0.0-0.2 BASOPHIL # (test code=BA#) 0.04 x10 3/uL 0.0-0.2 NUCLEATED RBC # (test code=NRBC#) 0.00 x10 3/uL 0.0-0.1 MANUAL DIFF REQUIRED (test code=MDIFF) NO COMMENTS: Daily while in ICUCOMPREHENSIVE METABOLIC [id number] 08:19:00 Test Item Value Reference Range Comments SODIUM (test code=NA) 137 mEq/L 134-147 POTASSIUM (test code=K) 3.8 mEq/L 3.4-5.0 CHLORIDE (test code=CL) 100 mEq/L 100-108 CARBON DIOXIDE (test code=CO2) 30 mEq/L 21-33 ANION GAP (test code=GAP) 11 0-20 GLUCOSE (test code=GLU) 101 mg/dL 70-110 BLOOD UREA NITROGEN (test 21 mg/dL 7-18 code=BUN) GLOMERULAR FILTRATION RATE 213.3 80-90 Units of (test code=GFR) measure=ml/min/1.73 m2 CREATININE (test code=CREAT) 0.4 mg/dL 0.6-1.3 TOTAL PROTEIN (test code=PROT) 6.6 g/dL 6.4-8.2 ALBUMIN (test code=ALB) 2.60 g/dL 3.4-5.0 CALCIUM (test code=CA) 8.9 mg/dL 8.0-10.5 BILIRUBIN TOTAL (test 0.20 mg/dL 0.0-1.0 code=BILT) SGOT/AST (test code=AST) 13 IUnit/L 15-37 SGPT/ALT (test code=ALT) 18 IUnit/L 15-65 ALKALINE PHOSPHATASE TOTAL 61 IUnit/L 20-125 (test code=ALKP) [id number] 08:19:00 Test Item Value Reference Range Comments PHOSPHOROUS (test code=PHOS) 3.0 mg/dL 2.5-4.9 [id number] 08:19:00 Test Item Value Reference Range Comments MAGNESIUM (test code=MAG) 1.80 mg/dL 1.8-2.4 [id number] 08:16:00 Test Item Value Reference Range Comments GLUBED (test code=GLUBED) 113 MG/DL 70-110 Performed by 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 [facility] [id number] 06:27:00 Test Item Value Reference Range Comments GLUBED (test code=GLUBED) 109 MG/DL 70-110 Performed by 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 [facility] URINALYSIS [id number] 20:07:00 Test Item Value Reference Range Comments UA COLOR (test code=COLU) BLOODY YEL/STRAW UA APPEARANCE (test code=APPU) BLOODY CLEAR UA GLUCOSE DIPSTICK (test code=DGLUU) NEGATIVE NEGATIVE UA BILIRUBIN DIPSTICK (test code=BILU) NEGATIVE NEGATIVE UA KETONE DIPSTICK (test code=KETU) 1+ NEGATIVE UA SPECIFIC GRAVITY (test code=SGU) 1.015 1.005-1.030 UA BLOOD DIPSTICK (test code=ALPHONSE) 5+ NEGATIVE UA PH DIPSTICK (test code=WAYNE) 7.0 5.0-7.0 UA PROTEIN DIPSTICK (test code=PROU) 4+ NEGATIVE UA UROBILINIOGEN DIPSTICK (test code=URO) 0.2 mg/dL 0.2-1.0 UA NITRITE DIPSTICK (test code=SUMANTH) NEGATIVE NEGATIVE UA LEUKOCYTE ESTERASE DIPSTICK (test NEGATIVE NEGATIVE code=LEUU) UA WBC (test code=WBCU) NONE SEEN WBC/HPF 0-3 UA RBC (test code=RBCU) >50 RBC/HPF 0-3 UA BACTERIA (test code=BACU) TRACE /HPF NONE SEEN UA SQUAMOUS CELLS (test code=SQU) NONE SEEN /HPF NONE SEEN UA CULT [id number] 20:07:00 Test Item Value Reference Range Comments UA CULTURE NEEDED? (test NO, WBC<10 Criteria Culture Chk Criteria not met, Urine code=UACULT) Culture cancelled. URINALYSIS [id number] 19:05:00 Test Item Value Reference Range Comments UA COLOR (test code=COLU) BLOODY YEL/STRAW UA APPEARANCE (test code=APPU) BLOODY CLEAR UA GLUCOSE DIPSTICK (test code=DGLUU) NEGATIVE NEGATIVE UA BILIRUBIN DIPSTICK (test code=BILU) NEGATIVE NEGATIVE UA KETONE DIPSTICK (test code=KETU) 1+ NEGATIVE UA SPECIFIC GRAVITY (test code=SGU) 1.015 1.005-1.030 UA BLOOD DIPSTICK (test code=ALPHONSE) 5+ NEGATIVE UA PH DIPSTICK (test code=WAYNE) 7.0 5.0-7.0 UA PROTEIN DIPSTICK (test code=PROU) 4+ NEGATIVE UA UROBILINIOGEN DIPSTICK (test code=URO) 0.2 mg/dL 0.2-1.0 UA NITRITE DIPSTICK (test code=SUMANTH) NEGATIVE NEGATIVE UA LEUKOCYTE ESTERASE DIPSTICK (test code=LEUU) NEGATIVE NEGATIVE UA WBC (test code=WBCU) WBC/HPF 0-3 UA RBC (test code=RBCU) RBC/HPF 0-3 UA CULT [id number] 19:05:00 Test Item Value Reference Range Comments UA CULTURE NEEDED? (test code=UACULT) Criteria Culture Chk [id number] 17:46:00 Test Item Value Reference Range Comments GLUBED (test code=GLUBED) 104 MG/DL 70-110 Performed by 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 [facility] [id number] 11:58:00 Test Item Value Reference Range Comments GLUBED (test code=GLUBED) 113 MG/DL 70-110 Performed by 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 [facility] [id number] 18:46:00 Test Item Value Reference Range Comments GLUBED (test code=GLUBED) 122 MG/DL 70-110 Performed by 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 [facility] - CT HEAD/BRAIN W/O [id number] 14:40:00 Name: YASH CLINTON [facility]: 1950 Age/S: 68 / M [address] [place] [address] Unit #: [id number] Loc: MARICARMEN Bustos77598 Phys: Melany Jim MD Acct: [id number] Dis Date: Status: ADM IN PHONE #: [phone] Exam Date: 1316 FAX #: [phone] Reason: STATUS POST FALL EXAMS: CPTCODE: [id number] CT HEAD/BRAIN W/O CONT 16924 PROCEDURE: CT HEAD WITHOUT CONTRAST INDICATION: Pneumonia, COPD, head injury COMPARISON: 06/20/18 CT head. TECHNIQUE: Noncontrast helical imaging performed skull base to the vertex. Multiplanar reformations are obtained. CT imaging performed at this location utilizes radiation dose optimization techniques which include one or more of the following: -Automated exposure control -Adjustment of the mA and/or kV according to patient size - Use of iterative reconstruction technique CT Radiation Dose DLP 913 mGy- cm FINDINGS: BRAIN PARENCHYMA: There is diffuse cerebral and cerebellar atrophy. Chronic microvascular ischemic changes noted in the deep white matter. No intra-axial or extra-axial hemorrhage, mass lesion or mass effect. The midline structures and posterior fossa contents are unremarkable. VENTRICLES: The ventricular system is normal. The basilar cisterns are normal. ORBITS, MASTOIDS AND PARANASAL SINUSES: The visualized orbits and paranasal sinuses are unremarkable. The mastoid air cells are clear. SKULL: The calvarium is intact. IMPRESSION: No acute intracranial abnormality. SL: [id number] at 1440 Reported and signed by: Vipul Tam M.D. PAGE 1 Signed Report (CONTINUED) [facility]: 1950 Age[facility] 68 / M [address] [place] [address] Unit #: [id number] Loc: MARICARMEN Bustos [address] Phys: Melany Jim MD Acct: [id number] Dis Date : Status: ADM IN PHONE #: [phone] Exam Date: 1316 FAX #: [phone] Reason: STATUS POST FALL EXAMS: CPT CODE: [id number] CT HEAD/BRAIN W/O CONT 81008 <Continued > CC: Radha Hernandez MD; Melany Jim MD; Marcia Santana MD Technologist: RT Linda(R)(CT) CTDI: DLP: Trnscb Date/Time: 07/26 (1965) [email or web address] Orig Print D/T: S: 07/26/2018 ( 6524) CTDI: DLP: PAGE 2 Signed Report- XR HIP W/PEL UNI 2+V [id number] 14:28:00 FAX: Radha Hernandez [phone] [place]: St: ADM FAX: Melany Jim MD [phone] FAX: Marcia Li [phone] Name: CLINTON YASH [facility] : 1950 Age/S: 68/M [address] [place] [address] Unit #: [id number] Loc: G.[address] [place] [address] Phys: Melany iJm MD Acct: [id number] Dis Date: Status: ADM IN PHONE #: [phone] Exam Date: 07/26/2018 1359 FAX #: [phone] Reason: STATUS POST FALL EXAMS: CPT CODE: [id number] XR HIP W/PEL UNI 2+[place] [address] Procedure: Right Hip Radiographs. Clinical Indication: Right hip pain post fall. Comparison: None. FINDINGS: The 2 views of the right hip demonstrate degenerative change involving the right hip including marginal osteophyte formation. No acute displaced fracture or dislocation is observed. IMPRESSION: 1. Degenerative change. SL: FLORENTINO Guy at 1428 Reported and signed by: Americo Beltran M.D. CC: Radha Hernandez MD; Melany Jim MD; Marcia Bird Technologist: HANS Gold RT(R); Rukhsana Modi RT(R) Trnscrd Date/Time/By: 07/26/2018 (1428) : By: Destin Orig Print D/T: S:07/26/2018 (7805) PAGE 1 Signed [id number] 13:48:00 Test Item Value Reference Range Comments GLUBED (test code=GLUBED) 121 MG/DL 70-110 Performed by 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 [facility] [id number] 08:25:00 Test Item Value Reference Range Comments GLUBED (test code=GLUBED) 110 MG/DL 70-110 Performed by 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 [facility] [id number] 00:19:00 Test Item Value Reference Range Comments GLUBED (test code=GLUBED) 100 MG/DL 70-110 Performed by 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 [facility] [id number] 18:11:00 Test Item Value Reference Range Comments GLUBED (test code=GLUBED) 112 MG/DL 70-110 Performed by 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 [facility] [id number] 12:31:00 Test Item Value Reference Range Comments GLUBED (test code=GLUBED) 138 MG/DL 70-110 Performed by 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 [facility] [id number] 06:03:00 Test Item Value Reference Range Comments GLUBED (test code=GLUBED) 91 MG/DL 70-110 Performed by 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 [facility] [id number] 00:06:00 Test Item Value Reference Range Comments GLUBED (test code=GLUBED) 115 MG/DL 70-110 Performed by 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 [facility] [id number] 18:06:00 Test Item Value Reference Range Comments GLUBED (test code=GLUBED) 103 MG/DL 70-110 Performed by 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 [facility] [id number] 11:58:00 Test Item Value Reference Range Comments GLUBED (test code=GLUBED) 113 MG/DL 70-110 Performed by 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 [facility] [id number] 06:57:00 Test Item Value Reference Range Comments GLUBED (test code=GLUBED) 117 MG/DL 70-110 Performed by 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 [facility] [id number] 00:05:00 Test Item Value Reference Range Comments GLUBED (test code=GLUBED) 98 MG/DL 70-110 Performed by 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 [facility] [id number] 20:58:00 Test Item Value Reference Range Comments GLUBED (test code=GLUBED) 103 MG/DL 70-110 Performed by 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 [facility] SURGICAL [id number] 12:25:00 RUN DATE: 07/02/18 [facility] *LIVE* PAGE 1 RUN TIME: 1226 Specimen Inquiry RUN USER: INTERFACE PATIENT: YASH CLINTON LOC: [facility] U #: [id number] AGE/SX: 68/M ROOM: [facility] RE06/20/18MUKESH DR: Radha Hernandez : [birth year] BED: 1 DIS: STATUS: ADM IN TLOC: SPEC #: [id number] RECD: 06/26/18 STATUS: CLIFFORD BLANCO # : [id number] GRADY: 06/26/[address] [facility] [address]: Radha Hernandez MD ENTERED: 07/02/18 SP TYPE: SURG SPEC OTHR DR: Self Referred Alexandra Carvajal MD, Maher MD Dow, Douglas MD Goldsmith,Criselda Johnson MD,Tab Brown MD, MDORDERED: GM LEVEL 4 CODES: [id number] - LUNG, NOS COPIESTO: Self Referred Alexandra Carvajal MD [address] [place] [address] [place] [address], [address] [place] [address] Rah Cueva MD [address] [place] [id number] Alphonso Gonsalez MD [address] [place] [id number] Vipul Fox DO [address] [place] [address] Criselda Salinas MD [address] [facility] [place] [address] CONTINUED ON NEXT PAGE RUN DATE: 07/02/18 [facility] *LIVE* PAGE 2 RUN TIME: 1226 Specimen Inquiry RUN USER: INTERFACE SPEC #: [id number] PATIENT: YASH CLINTON #[id number] (Continued) COPIES TO: (Continued) Marcia Santana MD [address] [place], [place] [id number] [email or web address] Tab Nguyễn MD [address] [place], [place] [id number] PROCEDURES: LEVEL 4 (Incomplete) TISSUES: 1. LUNG, NOS - Foreign body, right lower lobe 2. LUNG, NOS - Lung, right lower lobe lavage, cytology FINAL DIAGNOSIS Foreign body, right lower lobe: Consistent with food material. Lung, right, lower lobe lavage, cytology: Acute inflammatory cells with necrotic debris and degenerating epithelial cells. GROSS AND MICROSCOPIC GROSS DESCRIPTION: Received labeled right lower lobe foreign body is a 0.4 cm gaona-santos tissue fragment submitted in one cassette. Also received is a rightlower lobe lavage for cytologic evaluation. MICROSCOPIC EXAMINATION: Sections of the tissue submitted as foreign body reveal a portion of necrotic adipose tissue consistent with food material. Cell block and cytospin smears of the right lower lobe lavage reveal abundant acute inflammatory cells with necrotic debris. No cells diagnostic of malignancy identified. POST-OP DIAGNOSIS Foreign body right lower lobe PRE-OP DIAGNOSIS Atelectasis CONTINUED ON NEXT PAGE --- ---------RUN DATE: 07/02/18 [facility] *LIVE* PAGE 3 RUN TIME: 1226 Specimen Inquiry RUN USER: INTERFACE SPEC #: [id number] PATIENT: YASH CLINTON #[id number] (Continued) Signed SIGNATURE ON FILE Addy Mcmillan DO 07/02/18 1225 END OF REPORT TISSUE [id number] 10:27:00Surgical Pathology Report Case: [id number] Authorizing Provider: Addy Steele DO Collected: 02/28/2017 0921 Ordering Location: [facility] Received: 1315 SERVICES Pathologist: Belén Ac MD Specimen: Neuroma, 3RD WEBSPACE FOOT, RIGHT, 3RD WEBSPACE, EXCISION:- NERVE TISSUE CONSISTENT WITH NEUROMA Signing Pathologist Direct Phone Line:[phone] signed by Belén Ac MD on 03/06/2017 at 10:27 [id number] of right foot. Lesion of plantar nerve, right. Transient synovitis right ankle and foot. Right foot interdigital third web space neuroma excision.NeuromaThe instrument, paperwork, cassette, and container all read [id number].The specimen is received in formalin is a single container labeled with the patient's name (Clinton) and medical record number.Specimen A: The specimen is designated "neuroma 3rd webspace" and consists of a 3.2 cm long surgical piece of firm white to santos tissue. One end is bulbous with a 0.5 cm diameter. The remaining specimen has a 0.2 cm diameter. The specimen is bisected and submitted in toto in cassette A1. ES/ew All histologic sections have been microscopically examined. Thepertinent microscopic examination findings, along with the gross examination findings, have been incorporated into the diagnosis rendered above.
[2019-06-28] MEDS ORDERED: HYDROCODONE/APAP 10/325 TAB ONE (17:43)
[2019-06-28 17:46] LABS: Protime INR 1.5
[2019-06-28 17:47] LABS: Absolute Lymphocytes (CBC) 1.1 K/uL (0.7-4.9); Basophils % 0.4 % (0-1.3); Hematocrit 36.2 % (39.6-49.0); Lymphocytes % 18.2 % (15.3-44.8); MPV 9.4 fL (7.6-11.3)
--- NOTE | 2019-06-28 17:55 | RAD REPORT ---
EXAM DESCRIPTION: RAD - Chest Single View - 06/28/2019 5:27 pm CLINICAL HISTORY: COPD, shortness of breath COMPARISON: February 09 TECHNIQUE: AP portable chest image was obtained 1709 hours . FINDINGS: No peripheral mass or consolidation. Small focal density in the lateral apex on the right needs ongoing monitoring. There is an area of scarring seen in the prior study. Cardiac silhouette is enlarged compared to prior imaging even when adjusting for the AP versus PA technique. Interstitial pattern is more pronounced than seen previously. Right costophrenic angle blunting is present. No acu te bony abnormality seen. No acute aortic findings suspected. IMPRESSION: Mild CHF/volume overload pattern. Small focal density in the right apex may be scarring but needs monitoring with follow-up chest film in 3 months.
[2019-06-28] MEDS ORDERED: FUROSEMIDE 100 MG/10 ML VIAL IV ONE (17:59)
[2019-06-28] MEDS ORDERED: MORPHINE 4 MG/ML SYR ONE ×2 (17:59→20:38)
[2019-06-28] MEDS ORDERED: CEFTRIAXONE/SWI 1gm 1 GM/10 ML SYR ONE (17:59)
[2019-06-28] MEDS ORDERED: ONDANSETRON 4 MG/2 ML VIAL ONE (17:59)
[2019-06-28] MEDS ORDERED: predniSONE 20 MG TAB ONE (17:59)
[2019-06-28 18:03] LABS: Albumin 3.2 g/dL (3.4-5.0); Bilirubin Direct 0.2 mg/dL (0-0.2); Bilirubin Total 0.6 mg/dL (0.2-1.0); Magnesium 1.8 mg/dL (1.8-2.4); Potassium 4.3 mmol/L (3.5-5.1); Troponin (Emerg Dept Use Only) 0.02 ng/mL (0.0-0.045)
--- NOTE | 2019-06-28 19:56 | ER ---
Nurse's Notes [facility] Name: Corey Morgan Age: 69 yrs Sex: Male : 1950 Arrival Date: 06/28/2019 Time: 15:49 Bed 14 Private MD: Diagnosis: A-fib w/ RVR, CHF, COPD exacerbation, shortness of breath Presentation: 06/28 16:01 Presenting complaint: [facility] states[facility]. Pt added on sv that he has also been having jose c feet swelling as well. Pt states normal wt is 150s, wears O2 \\T\\ 5L per NC continuously. Transition of care: patient was not received from another setting of care. Onset of symptoms was June 28, 2019. Risk Assessment: Do you want to hurt yourself or someone else? Patient reports no desire to harm self or others. Initial Sepsis Screen: Does the patient meet any 2 criteria? RR > 20 per min. HR > 90 bpm. No. Patient's initial sepsis screen is negative. Does the patient have a suspected source of infection? No. Patient's initial sepsis screen is negative. Care prior to arrival: None. 16:01 Method Of Arrival: Ambulatory sv 16:01 Acuity: JAKE 2 sv Historical: - Allergies: 16:03 Seroquel; sv - PMHx: 16:03 COPD; Emphysema; sv - PSHx: 16:03 right arm; shoulder; nose; trach reversal; PEG tube reversal; sv - Immunization history:: Flu vaccine is up to date. - Social history:: Smoking status: Patient uses tobacco products, vapes. - Ebola Screening: : No symptoms or risks identified at this time. Screenin:30 Abuse screen: Denies threats or abuse. Denies injuries from another. Nutritional aj1 screening: No deficits noted. Tuberculosis screening: No symptoms or risk factors identified. Assessment: 16:30 General: Appears in no apparent distress. comfortable, Behavior is calm, cooperative, aj1 appropriate for age. Pain: Denies pain. Neuro: Level of Consciousness is awake, alert, obeys commands, Oriented to person, place, time, situation. Cardiovascular: Heart tones S1 S2 present Patient's skin is warm and dry. Rhythm is irregular. Respiratory: Reports shortness of breath on exertion cough that is productive, Airway is patent Respiratory effort is even, unlabored, Respiratory pattern is regular, symmetrical, Breath sounds are clear bilaterally. GI: No signs and/or symptoms were reported involving the gastrointestinal system. : No signs and/or symptoms were reported regarding the genitourinary system. EENT: No signs and/or symptoms were reported regarding the EENT system. Derm: No signs and/or symptoms reported regarding the dermatologic system. Skin is pink, warm \\T\\ dry. normal. Musculoskeletal: No signs and/or symptoms reported regarding the musculoskeletal system. Circulation, motion, and sensation intact. 17:30 Reassessment: Patient appears in no apparent distress at this time. No changes from aj1 previously documented assessment. Patient and/or family updated on plan of care and expected duration. Pain level reassessed. Patient is alert, oriented x 3, equal unlabored respirations, skin warm/dry/pink. 17:45 Reassessment: Patient states that he is feeling much better and he does not want to be aj1 admitted. Notified Dr. Plata. 18:31 Reassessment: Patient appears in no apparent distress at this time. No changes from aj1 previously documented assessment. Patient and/or family updated on plan of care and expected duration. Pain level reassessed. Patient is alert, oriented x 3, equal unlabored respirations, skin warm/dry/pink. 19:37 Reassessment: States "I am feeling a lot better". General: Appears comfortable, ea Behavior is calm, cooperative, appropriate for age. Pain: Denies pain. Neuro: Level of Consciousness is awake, alert, obeys commands, Oriented to person, place, time, situation. Cardiovascular: Patient's skin is warm and dry. Respiratory: Airway is patent Respiratory effort is even, unlabored, Respiratory pattern is regular, symmetrical. GI: No signs and/or symptoms were reported involving the gastrointestinal system. Derm: Skin is pink, warm \\T\\ dry. Musculoskeletal: Circulation, motion, and sensation intact. 20:12 Reassessment: Pt ambulated approx 50 ft, per physician request, pt tolerated well. Pt ea reports he feels a little winded but is feeling better than before. 21:37 Reassessment: Patient and/or family updated on plan of care and expected duration. Pain ea level reassessed. Patient is alert, oriented x 3, equal unlabored respirations, skin warm/dry/pink. Pt admitted to second floor, left ED via wheelchair per tech , pt tolerating well. Vital Signs: 16:03 BP 109 / 94; Pulse 94; Resp 28; Temp 97.8; Pulse Ox 98% ; Weight 78.02 kg; Height 5 ft. sv 6 in. (167.64 cm); 16:30 BP 132 / 80; Pulse 137; Resp 24; Pulse Ox 98% on NC; aj1 17:30 BP 122 / 90; Pulse 138; Resp 22; Pulse Ox 96% on NC; aj1 18:31 BP 117 / 87; Pulse 125; Resp 22; Pulse Ox 100% on NC; aj1 19:38 BP 97 / 73; Pulse 98; Resp 18; Pulse Ox 96% on R/A; ea 20:12 BP 139 / 99; Pulse 124; Resp 19; Pulse Ox 92% on R/A; ea 20:57 Pulse 105; Resp 16; Pulse Ox 99% on 3 lpm NC; ea 21:23 BP 161 / 89; Pulse 109; Resp 19; Temp 98; Pulse Ox 97% on 3 lpm NC; ea 16:03 Body Mass Index 27.76 (78.02 kg, 167.64 cm) sv ED Course: 15:49 Patient arrived in ED. as 16:02 Triage completed. sv 16:02 Star Plata MD is Attending Physician. kdr 16:03 Arm band placed on. sv 16:11 Patient has correct armband on for positive identification. Placed in gown. Bed in low mh5 position. Call light in reach. Side rails up X 1. Adult w/ patient. body shop estimator on. Pulse ox on. NIBP on. 16:30 No provider procedures requiring assistance completed. aj1 16:43 Sydney Costa, RN is Primary Nurse. aj1 17:18 Assisted with urinal. bd 17:29 XRAY Chest (1 view) In Process Unspecified. EDMS 17:59 Placed in gown. Bed in low position. Call light in reach. Side rails up X 1. Adult w/ mh5 patient. Warm blanket given. 17:59 EKG done, by ED staff, reviewed by Star Plata MD. mh5 19:54 Keith Forde MD is Hospitalizing Provider. kdr 21:21 Patient admitted, IV remains in place. ea Administered Medications: 18:08 Drug: morphine 4 mg Route: IVP; Site: right forearm; aj1 19:17 Follow up: Response: No adverse reaction; Pain is decreased; RASS: Alert and Calm (0) aj1 18:08 Drug: Zofran 4 mg Route: IVP; Site: right forearm; aj1 19:17 Follow up: Response: No adverse reaction aj1 18:09 Drug: predniSONE 60 mg Route: PO; aj1 19:16 Follow up: Response: No adverse reaction aj1 18:09 Drug: Rocephin - (cefTRIAXone) 1 grams Route: IVPB; Infused Over: 30 mins; Site: right aj1 forearm; 20:30 Follow up: Response: No adverse reaction; IV Status: Completed infusion ea 18:09 Drug: Lasix 100 mg Route: IVP; Site: right forearm; aj1 19:16 Follow up: Response: No adverse reaction aj1 18:10 Not Given (Physician Discretion): Albuterol - atroVENT (3:1) (2.5 mg - 0.5 mg) 3 ml [facility] Nebulizer once 20:11 Drug: Digoxin 0.5 mg Route: IVP; Site: right antecubital; ea 21:16 Follow up: Response: No adverse reaction ea 20:37 CANCELLED (Other Intervention Used): morphine 4 mg IM once; RASS on ADMIN: Combtv4, ea Very Agttd3, Agttd2, Rstlss1, AlertClm0, Drwsy-1, Lt Sdtn-2, Mod Sdtn-3, Dp Sdtn-4, UnArsble-5 20:54 Drug: morphine 4 mg {Note: RASS 0.} Route: IVP; Site: right antecubital; ea 21:35 Follow up: Response: No adverse reaction; Pain is decreased ea Outcome: 19:55 Decision to Hospitalize by Provider. kdr 20:30 Instructed on the need for admit. ea 21:25 Admitted to Med/surg accompanied by tech, via wheelchair, room 230, with oxygen, with ea chart, Report called to Jarrett TREVINO 21:25 Condition: stable 21:39 Patient left the ED. ea Signatures: Dispatcher [employer] EDMS Nathalia Arroyo Angela, RN RN aj1 Juan Carlos, MegBELINDA ward RN, Kevin, MD MD kdr Martinez, Amelia as Martinez, Maria [facility] Yuliya Howard RN RN ea Corrections: (The following items were deleted from the chart) 16:04 16:01 Presenting complaint: Patient states[facility]-130[facility]. Pt added sv on that he has also been having jose c feet swelling as well. sv
--- NOTE | 2019-06-28 19:56 | EDPHYS ---
Physician Documentation [facility] Name: Corey Morgan Age: 69 yrs Sex: Male : 1950 Arrival Date: 06/28/2019 Time: 15:49 Bed 14 Private MD: ED Physician Star Plata HPI: 06/28 16:55 This 69 yrs old Male presents to ER via Ambulatory with complaints of fluid kdr build up - peripheral edema. 16:55 The patient has multiple medical issues but today he is lower extremity swelling. kdr Onset: The symptoms/episode began/occurred gradually, at an unknown time. and became worse and became persistent. Severity of symptoms: At their worst the symptoms were mild moderate this morning, in the emergency department the symptoms are unchanged. The patient has experienced similar episodes in the past, multiple times, but today's symptoms are worse, lasting longer, today's symptoms are similar. The patient had a recent admission at [facility] for a-fib RVR secondary to a possible Seroquel interaction. Historical: - Allergies: 16:03 Seroquel; sv - PMHx: 16:03 COPD; Emphysema; sv - PSHx: 16:03 right arm; shoulder; nose; trach reversal; PEG tube reversal; sv - Immunization history:: Flu vaccine is up to date. - Social history:: Smoking status: Patient uses tobacco products, vapes. - Ebola Screening: : No symptoms or risks identified at this time. ROS: 17:51 Constitutional: Negative for fever, chills, and weight loss, Eyes: Negative for injury, kdr pain, redness, and discharge, ENT: Negative for injury, pain, and discharge, Neck: Negative for injury, pain, and swelling, Cardiovascular: Negative for chest pain, palpitations, and edema, Abdomen/GI: Negative for abdominal pain, nausea, vomiting, diarrhea, and constipation, Back: Negative for injury and pain, : Negative for injury, bleeding, discharge, and swelling, Skin: Negative for injury, rash, and discoloration, Neuro: Negative for headache, weakness, numbness, tingling, and seizure activity. Psych: Negative for depression, anxiety, suicide ideation, homicidal ideation, and hallucinations, Allergy/Immunology: Negative for hives, rash, and allergies, Endocrine: Negative for neck swelling, polydipsia, polyuria, polyphagia, and marked weight changes, Hematologic/Lymphatic: Negative for swollen nodes, abnormal bleeding, and unusual bruising. 17:51 Respiratory: Positive for cough, with green sputum, dyspnea on exertion, shortness of breath, on exertion. Negative for hemoptysis, orthopnea, pleurisy. Exam: 17:51 Constitutional: This is a well developed, well nourished patient who is awake, alert, kdr and in no acute distress. Head/Face: Normocephalic, atraumatic. Neck: Trachea midline, no thyromegaly or masses palpated, and no cervical lymphadenopathy. Supple, full range of motion without nuchal rigidity, or vertebral point tenderness. No Meningismus. Chest/axilla: Normal chest wall appearance and motion. Nontender with no deformity. No lesions are appreciated. Cardiovascular: Irregularly irregular rhythm with a normal S1 and S2. No gallops, murmurs, or rubs. Normal PMI, no JVD. No pulse deficits. Abdomen/GI: Soft, non-tender, with normal bowel sounds. No distension or tympany. No guarding or rebound. No evidence of tenderness throughout. 17:51 Respiratory: the patient does not display signs of respiratory distress, Respirations: normal, Breath sounds: Vital Signs: 16:03 BP 109 / 94; Pulse 94; Resp 28; Temp 97.8; Pulse Ox 98% ; Weight 78.02 kg; Height 5 ft. sv 6 in. (167.64 cm); 16:30 BP 132 / 80; Pulse 137; Resp 24; Pulse Ox 98% on NC; aj1 17:30 BP 122 / 90; Pulse 138; Resp 22; Pulse Ox 96% on NC; aj1 18:31 BP 117 / 87; Pulse 125; Resp 22; Pulse Ox 100% on NC; aj1 19:38 BP 97 / 73; Pulse 98; Resp 18; Pulse Ox 96% on R/A; ea 20:12 BP 139 / 99; Pulse 124; Resp 19; Pulse Ox 92% on R/A; ea 20:57 Pulse 105; Resp 16; Pulse Ox 99% on 3 lpm NC; ea 21:23 BP 161 / 89; Pulse 109; Resp 19; Temp 98; Pulse Ox 97% on 3 lpm NC; ea 16:03 Body Mass Index 27.76 (78.02 kg, 167.64 cm) sv MDM: 19:55 Patient medically screened. kdr 19:56 Data reviewed: vital signs, nurses notes, lab test result(s), radiologic studies. kdr Counseling: I had a detailed discussion with the patient and/or guardian regarding: the historical points, exam findings, and any diagnostic results supporting the discharge/admit diagnosis, lab results, radiology results, the need for further work-up and treatment in the hospital. 06/28 16:52 Order name: Basic Metabolic Panel; Complete Time: 19:45 kdr 06/28 16:52 Order name: CBC with Diff; Complete Time: 19:45 kdr 06/28 16:52 Order name: LFT's; Complete Time: 19:45 kdr 06/28 16:52 Order name: Magnesium; Complete Time: 19:45 kdr 06/28 16:52 Order name: NT PRO-BNP; Complete Time: 19:45 kdr 06/28 16:52 Order name: PT-INR; Complete Time: 19:45 kdr 06/28 16:52 Order name: Troponin (emerg Dept Use Only); Complete Time: 19:45 kdr 06/28 20:41 Order name: T4 Free [facility] 06/28 20:41 Order name: CKMB Creatine Kinase MB [facility] 06/28 20:42 Order name: CKMB Creatine Kinase MB [facility] 06/28 20:42 Order name: CKMB Creatine Kinase MB [facility] 06/28 20:42 Order name: CKMB Creatine Kinase MB [facility] 06/28 20:42 Order name: Comprehensive Metabolic Panel [facility] 06/28 20:42 Order name: Comprehensive Metabolic Panel [facility] 06/28 16:52 Order name: XRAY Chest (1 view); Complete Time: 19:45 kdr 06/28 20:42 Order name: Lipid Profile [facility] 06/28 20:42 Order name: Lipid Profile [facility] 06/28 20:42 Order name: Magnesium [facility] 06/28 20:42 Order name: Magnesium [facility] 06/28 20:42 Order name: Phosphorus [facility] 06/28 20:42 Order name: Phosphorus [facility] 06/28 20:42 Order name: Troponin I [facility] 06/28 20:42 Order name: Troponin I [facility] 06/28 20:42 Order name: Troponin I [facility] 06/28 20:42 Order name: Troponin I [facility] 06/28 20:44 Order name: Thyroid Stimulating Hormone [facility] 06/28 16:52 Order name: EKG; Complete Time: 16:53 kdr 06/28 16:52 Order name: Cardiac monitoring; Complete Time: 18:10 kdr 06/28 16:52 Order name: EKG - Nurse/Tech; Complete Time: 17:58 kdr 06/28 16:52 Order name: IV Saline Lock; Complete Time: 18:10 kdr 06/28 16:52 Order name: Labs collected and sent; Complete Time: 18:10 kdr 06/28 16:52 Order name: O2 Per Protocol; Complete Time: 18:10 kdr 06/28 16:52 Order name: O2 Sat Monitoring; Complete Time: 18:10 kdr 06/28 20:44 Order name: CONS Physician Consult [facility] 06/28 20:44 Order name: Heart Healthy [facility] 06/28 20:44 Order name: CONS Pharmacy Consult [facility] Administered Medications: 18:08 Drug: morphine 4 mg Route: IVP; Site: right forearm; aj1 19:17 Follow up: Response: No adverse reaction; Pain is decreased; RASS: Alert and Calm (0) aj1 18:08 Drug: Zofran 4 mg Route: IVP; Site: right forearm; aj1 19:17 Follow up: Response: No adverse reaction aj1 18:09 Drug: predniSONE 60 mg Route: PO; aj1 19:16 Follow up: Response: No adverse reaction aj1 18:09 Drug: Rocephin - (cefTRIAXone) 1 grams Route: IVPB; Infused Over: 30 mins; Site: right aj1 forearm; 20:30 Follow up: Response: No adverse reaction; IV Status: Completed infusion ea 18:09 Drug: Lasix 100 mg Route: IVP; Site: right forearm; aj1 19:16 Follow up: Response: No adverse reaction aj1 18:10 Not Given (Physician Discretion): Albuterol - atroVENT (3:1) (2.5 mg - 0.5 mg) 3 ml aj Nebulizer once 20:11 Drug: Digoxin 0.5 mg Route: IVP; Site: right antecubital; ea 21:16 Follow up: Response: No adverse reaction ea 20:37 CANCELLED (Other Intervention Used): morphine 4 mg IM once; RASS on ADMIN: Combtv4, ea Very Agttd3, Agttd2, Rstlss1, AlertClm0, Drwsy-1, Lt Sdtn-2, Mod Sdtn-3, Dp Sdtn-4, UnArsble-5 20:54 Drug: morphine 4 mg {Note: RASS 0.} Route: IVP; Site: right antecubital; ea 21:35 Follow up: Response: No adverse reaction; Pain is decreased ea Disposition: 06/28/19 19:55 Hospitalization ordered by Keith Forde for Inpatient Admission. Preliminary diagnosis is A-fib w/ RVR, CHF, COPD exacerbation, shortness of breath. - Bed requested for Telemetry/MedSurg (Inpatient). - Status is Inpatient Admission. ea - Condition is Fair. - Problem is an ongoing problem. - Symptoms have improved. UTI on Admission? No Signatures: Dispatcher [employer] EDMS Sydney Costa RN RN ajMeg Gaines RN Star Rodriguez MD MD kdr Ballard, Brenda, RN RN bb Antunez, Elena, RN RN ea Corrections: (The following items were deleted from the chart) 20:37 20:37 morphine 4 mg IM once; RASS on ADMIN: Combtv4, Very Agttd3, Agttd2, Rstlss1, ea AlertClm0, Drwsy-1, Lt Sdtn-2, Mod Sdtn-3, Dp Sdtn-4, UnArsble-5 ordered. ea 20:48 19:55 Hospitalization Ordered by Keith Forde MD for Inpatient Admission. Preliminary bb diagnosis is A-fib w/ RVR, CHF, COPD exacerbation, shortness of breath. Bed requested for Telemetry/MedSurg (Inpatient). Status is Inpatient Admission. Condition is Fair. Problem is an ongoing problem. Symptoms have improved. UTI on Admission? No. kdr 21:39 20:48 06/28/2019 19:55 Hospitalization Ordered by Keith Forde MD for Inpatient ea Admission. Preliminary diagnosis is A-fib w/ RVR, CHF, COPD exacerbation, shortness of breath. Bed requested for Telemetry/MedSurg (Inpatient). Status is Inpatient Admission. Condition is Fair. Problem is an ongoing problem. Symptoms have improved. UTI on Admission? No. bb
[2019-06-28] MEDS ORDERED: DIGOXIN 0.25 MG/ML AMP ONE (20:03)
[2019-06-28] MEDS ORDERED: ONDANSETRON 4 MG/2 ML VIAL IV PRN (20:37)
[2019-06-28] MEDS ORDERED: ALBUTEROL 2.5 MG/3 ML NEB SOL NEB PRN (20:37)
[2019-06-28] MEDS ORDERED: ACETAMINOPHEN 500 MG TAB PO PRN (20:37)
[2019-06-28] MEDS ORDERED: METOPROLOL TARTRATE 5 MG/5 ML INJ IV PRN (20:42)
--- NOTE | 2019-06-28 20:44 | P.HP ---
Certification for Inpatient Patient admitted to: Inpatient With expected LOS: >2 Midnights Patient will require the following post-hospital care: None Practitioner: I am a practitioner with admitting privileges, knowledge of patient current condition, hospital course, and medical plan of care. Services: Services provided to patient in accordance with Admission requirements found in Title 42 Section 412.3 of the Code of Federal Regulations Patient History Date of Service: 06/28/19 Reason for admission: AFib with RVR History of Present Illness: 69-year-old male with past medical history of hypertension, COPD, chronic hypoxic respiratory failure on home oxygen, CHF, atrial fibrillation on amiodarone and Eliquis came to ER with shortness of breath and palpitation And worsening of lower extremity swelling which has been progressively worsening over the last few days. Patient denies any chest pain. No fever no chills Patient was assessed in the ER and was found to have AFib with RVR and CHF exacerbation and was admitted for further management. Allergies No Known Allergies Allergy (Verified 02/09/19 16:00) Home medications list reviewed: Yes Home Medications: ALPRAZolam [Xanax*] 1 tab PO BID 09/10/18 Collagenase Clostridium Hist. [Santyl] 1 william TOP DAILY 09/10/18 Docusate [Colace Cap*] 1 tab PO DAILY 09/10/18 Mirtazapine [Remeron*] 30 mg PO DAILY 09/10/18 Primidone [Mysoline *] 1 tab PO DAILY 09/10/18 Testost Cypionate [Depo-Testosterone*] 1 ml IM SEECOM 09/10/18 Umeclidinium Brm/Vilanterol Tr [Anoro Ellipta 62.5-25 Mcg INH] 1 puff IH DAILY 09/10/18 Albuterol Neb [Proventil 0.083% Neb Soln] 2.5 mg IH DAILYPRN PRN 02/09/19 Alpha Lipoic Acid 50 mg PO DAILY 02/09/19 Amitriptyline HCl 10 mg PO DAILY 02/09/19 Fexofenadine HCl [Ingrid Allergy] 180 mg PO DAILY 02/09/19 Folic Acid 1 mg PO DAILY 02/09/19 Gabapentin 300 mg PO TID 02/09/19 Hydrocodone/Acetaminophen [[place] 10-325 Tablet] 1 each PO Q6HP PRN 02/09/19 Methotrexate [Methotrexate*] 3 tab PO EVERY 7TH DAY 02/09/19 Multivitamin [Multivitamins] 1 each PO DAILY 02/09/19 Omeprazole [Prilosec] 40 mg PO DAILY 02/09/19 - Past Medical/Surgical History Diabetic: No Past Medical History: Reviewed- Non-Contributory -: septic shock 2017 from aspiration pna -: copd -: neuropathy -: ptsd/anxiety -: PEG tube Past Surgical History: Reviewed- Non-Contributory -: PEG -: R arm reconstructive surgery -: lap appy - Family History Family History: Reviewed- Non-Contributory - Social History Smoking Status: Former smoker Alcohol use: No Review of Systems 10-point ROS is otherwise unremarkable General: Weakness, Malaise Eyes: Unremarkable ENT: Unremarkable Respiratory: Shortness of Breath, SOB with Excertion Cardiovascular: Palpitations, Edema Gastrointestinal: Unremarkable Genitourinary: Unremarkable Musculoskeletal: Pedal edema Physical Examination - Vital Signs Temperature: 97.8 F Blood Pressure: 142/78 Pulse: 138 Respirations: 20 Pulse Ox (%): 92 - Physical Exam General: Alert, Oriented x3, Mild distress HEENT: Atraumatic, Normocephalic Neck: Supple, 2+ carotid pulse no bruit Respiratory: Diminished, Expiratory wheezes Cardiovascular: Other (Tachycardia), Edema, Irregular heart rate/rhythm Capillary refill: <2 Seconds Gastrointestinal: Soft and benign, W/out hepatosplenomegaly Musculoskeletal: No clubbing, No erythema, No tenderness, Swelling Integumentary: No rashes, No significant lesion Neurological: Normal speech, Normal strength at 5/5 x4 extr Lymphatics: No axilla or inguinal lymphadenopathy Urinary: Other (No bladder distension) External genitalia: Deferred Rectal: Deferred - Studies Laboratory Data (last 24 hrs) 06/28/19 17:35: PT 17.4 H, INR 1.50 06/28/19 17:35: WBC 5.8, Hgb 11.8 L, Hct 36.2 L, Plt Count 135 L 06/28/19 17:35: Sodium 142, Potassium 4.3, BUN 19 H, Creatinine 1.52 H, Glucose 104, Magnesium 1.8, Total Bilirubin 0.6, AST 35, ALT 57, Alkaline Phosphatase 51 Assessment and Plan - Problems (Diagnosis) (1) Atrial fibrillation with RVR Current Visit: Yes Status: Acute (2) Acute exacerbation of CHF (congestive heart failure) Current Visit: Yes Status: Acute (3) Back pain, chronic Current Visit: No Status: Acute (4) COPD (chronic obstructive pulmonary disease) Current Visit: No Status: Acute (5) PTSD (post-traumatic stress disorder) Current Visit: No Status: Acute - Plan AFib with RVR Acute CHF exacerbation probably combined systolic/diastolic COPD with no exacerbation Chronic hypoxic respiratory failure on home O2 Hypertension Bilateral pedal edema possibly due to CHF PTSD Anxiety Chronic back pain acute kidney injury Plan Monitor closely under telemetry Rate control Beta-blockers p.r.n. Patient altered Dc digoxin in the ER Continue home dose of amiodarone titrate antihypertensives continue home oxygen Aggressive diuresis will get an echocardiogram Cardiology consult Bronchodilators continue pain medications monitor renal parameters GI/DVT prophylaxis advanced directive full code - Advance Directives Does patient have a Living Will: No Does patient have a Durable POA for Healthcare: No
--- NOTE | 2019-06-28 20:47 | EKG ---
Test Date: 2019-06-28 Test Time: 16:08:08 Oyster Planter: JAYNE MEASUREMENT RESULTS: Intervals: Rate: 135 IA: QRSD: 78 QT: 312 QTc: 468 [place]: P: IA: QRS: 41 T: 57 INTERPRETIVE STATEMENTS: Atrial fibrillation with rapid ventricular response Nonspecific T wave abnormality, probably digitalis effect Abnormal ECG Compared to ECG 02/09/2019 16:37:44 T-wave abnormality now present Sinus rhythm no longer present Electronically Signed On 06-28-19 20:46:38 CAMPUS PRESIDENT by Quinten Payan
[2019-06-28] MEDS ORDERED: ALBUTEROL 2.5 MG/3 ML NEB SOL IH PRN (21:29)
[2019-06-28] MEDS ORDERED: HYDROCODONE/APAP 10/325 TAB PO PRN (21:29)
[2019-06-28] MEDS: AMIODARONE HCL 200 MG TAB PO SCH (23:28)
[2019-06-28] MEDS: ALPRAZOLAM 1 MG TABLET PO SCH (23:28)
[2019-06-29 00:22] LABS: Urine Appearance CLEAR; Urine Bilirubin NEGATIVE (NEG); Urine Blood NEGATIVE (NEG); Urine Color YELLOW; Urine Glucose NEGATIVE (NEG); Urine Protein NEGATIVE (NEG); Urine Urobilinogen 0.2 mg/dL (0.2-1.0)
[2019-06-29 00:26] LABS: Urine Microscopic Reflex NO UMIC
[2019-06-29 00:29] LABS: CKMB Creatine Kinase MB 2.9 ng/mL (0.3-3.6); Troponin I 0.02 ng/mL (0.0-0.045)
[2019-06-29 00:34] LABS: Thyroid Stimulating Hormone 4.48 uIU/mL (0.360-3.740)
[2019-06-29] MEDS ORDERED: FUROSEMIDE 40 MG/4 ML VIAL IV SCH (01:00)
[2019-06-29] MEDS: IPRATROPIUM BROM 0.5MG/2.5ML NEB SCH ×2 (01:25→07:44)
[2019-06-29] MEDS: MORPHINE 2 MG/ML SYR IV PRN ×3 (01:31→12:45)
[2019-06-29 04:16] LABS: Absolute Lymphocytes (CBC) 0.5 K/uL (0.7-4.9); Basophils % 0.1 % (0-1.3); Hematocrit 36.6 % (39.6-49.0); Lymphocytes % 10.5 % (15.3-44.8); MPV 9.4 fL (7.6-11.3); RBC Red Blood Cell Count 3.94 M/uL (4.33-5.43)
[2019-06-29 04:18] LABS: Protime INR 1.39
[2019-06-29 04:58] LABS: Albumin 3.1 g/dL (3.4-5.0); Bilirubin Total 0.6 mg/dL (0.2-1.0); CKMB Creatine Kinase MB 2.7 ng/mL (0.3-3.6); Magnesium 1.6 mg/dL (1.8-2.4); Phosphorus 3.4 mg/dL (2.5-4.9); Potassium 3.7 mmol/L (3.5-5.1); Protein, Total 5.9 g/dL (6.4-8.2); Troponin I 0.02 ng/mL (0.0-0.045)
[2019-06-29 05:10] LABS: Blood Morphology Comment NOT SEEN (NOT SEEN); Platelet Estimate ADEQ
[2019-06-29 05:13] VITALS: BP 128/87; TEMP 98.4
[2019-06-29 05:14] VITALS: BMI 26.5
[2019-06-29] MEDS ORDERED: carvediloL 3.125 MG TAB PO SCH (06:00)
[2019-06-29] MEDS ORDERED: PANTOPRAZOLE 40MG TABLET PO SCH (06:30)
[2019-06-29] MEDS: ALPRAZOLAM 1 MG TABLET PO SCH (09:00)
[2019-06-29] MEDS ORDERED: FEXOFENADINE 180 MG TAB PO SCH (09:00)
[2019-06-29] MEDS ORDERED: DOCUSATE NA 100 MG CAP PO SCH (09:00)
[2019-06-29] MEDS ORDERED: TAMSULOSIN 0.4 MG SR CAP PO SCH (09:00)
[2019-06-29] MEDS ORDERED: ALPHA LIPOIC ACID 50 MG PO SCH (09:00)
[2019-06-29] MEDS ORDERED: APIXABAN 2.5 MG TABLET PO SCH (09:00)
[2019-06-29] MEDS ORDERED: POTASSIUM 25 MEQ EFFERV TAB PO ONE (09:00)
[2019-06-29] MEDS ORDERED: METHOTREXATE 2.5 MG TAB PO SCH (09:00)
[2019-06-29] MEDS ORDERED: FOLIC ACID 1 MG TABLET PO SCH (09:00)
[2019-06-29] MEDS ORDERED: APIXABAN 5 MG TABLET PO SCH (09:00)
[2019-06-29] MEDS ORDERED: AMITRIPTYLINE 10 MG TAB PO SCH (09:00)
[2019-06-29] MEDS ORDERED: MAGNESIUM SULFATE 1 gm IVPB 1 GM/100 ML BAG IV ONE (09:00)
[2019-06-29] MEDS: AMIODARONE HCL 200 MG TAB PO SCH (09:40)
--- NOTE | 2019-06-29 11:54 | CON ---
Date of Consultation: 06/29/[address] Talley on 06/28/2019. I saw the patient on 06/29/2019. Reason For Consultation: Atrial fibrillation and congestive heart failure. History Of Present Illness: Mr. Morgan is a 69-year-old white male, has a history of COPD, chronic at rial fibrillation. Apparently, he had a cardioversion in June of 2018 that did not work. He has been on amiodarone 200 mg b.i.d. since, but continues to be in atrial fibrillation. He does not mary te feel his atrial fibrillation, but he came in with a rapid rate of 140 to 150 and congestive heart failure. Denied any chest pain or syncope. Denied any nausea or vomiting or diaphoresis. His main complaint was shortness of breath. Chest x-ray showed mild congestive heart failure. EKG showed atr ial fibrillation 135. He had a creatinine of 1.41, TSH of 4.48. His BNP was 2248. Past Medical History: As stated above. Allergies: QUETIAPINE. Medications: At home include amiodarone, Eliquis, Lasix, carvedilol 3.125 mg daily, inhalers, and Xa nax. Review of Systems: Negative. Social History: Positive for history of tobacco use. Family History: Noncontributory. Physical Examination: General: Mr. Morgan was in no acute distress, rather anxious. Vital Signs: Atrial fibrillation at 120. HEENT: Negative. Neck: Supple with no bruit, lymphadenopathy, JVD, or thyromegaly. Chest: Revealed diffuse wheezing but no rales. Cardiac: Revealed atrial fibrillation without murmurs, gallops, or rubs. Abdomen: Benign. Extremities: Revealed no clubbing, cyanosis, or edema. Skin: Dry and intact. Neurologic: He was nonfocal. Pulses were weak distally bilaterally. Diagnostic Data: As stated earlier. Impression And Plan: 1.Congestive heart failure, probably acute diastolic secondary to atrial fibrillation. 2.Chronic obstructive pulmonary disease. 3.Renal insufficiency. 4.Elevated BNP secondary to atrial fibrillation and congestive heart failure. I think we need to do an echocardiogram. I think we need to increase his carvedilol to 6.25 b.i.d. I think we need to increase his Lasix to 40 mg p.o. daily. He will continue his amiodarone and Eliqu is for now, but I suggest considering his severe COPD and emphysema, that he discusses with his docto r, Dr. Tab Nguyễn, in [facility], for him to consider an ablation. He failed ca rdioversion. He failed amiodarone. He was given phone numbers of electrophysiology services in [facility]. From my standpoint, he can go home on the above-mentioned recommendations. I will see him in t he office if he wants me to or I can have Dr. Tab Nguyễn refer him for EP services. I would leave t hat up to him. REI/KATARINA Voice ID: [id number] Report ID: [id number]
[2019-06-29 14:13] VITALS: O2SAT 99
--- NOTE | 2019-06-29 20:49 | DS ---
Date of Discharge: 06/29/2019 Six Sigma Black Belt Engineer: Dr. Payan with Cardiology. Discharge Diagnoses: 1. Atrial fibrillation with rapid ventricular response. 2. Acute on chronic exacerbation of congestive heart failure. 3. Chronic back pain. 4. Chronic obstructive pulmonary disease, chronic bronchitis. 5. Posttraumatic stress disorder. Hospital Course: Patient is a 69-year-old male, comes in with atrial fibrillation with RVR, shortness of breath and lower extremity swelling. Patient was thought to be in CHF exacerbation and had atrial fibrillation with RVR. Dr. Payan saw the patient, who recommended increasing the dose of the Coreg to twice his current dose and Lasix increasing to 40 mg daily. Patient does need ablation study done for his atrial fibrillation. He is already on amiodarone, which I have discussed with the patient should be taken off as he already has lung disease and due to the side effects of amiodarone, he should be switched to a different agent. Patient is on anticoagulation for his atrial fibrillation. Patient's symptoms improved. He was on room air, did not have any further difficulty breathing. He was breathing. He is able to ambulate without any shortness of breath. Patient had some minimally elevated creatinine at 1.41. He is to have repeat BMP and magnesium level done as an outpatient. Overall, the patient did well. He was then cleared for discharge from Cardiology standpoint and was discharged home in a stable condition to follow up with his PCP in 2 to 3 days. Follow up with his disc jockey, Dr. Nguyễn in 1 week. Return to ER for worsening condition. Patient will need outpatient ablation study. Physical exam General: Awake alert oriented x3 Cardiovascular: CV S1-S2 Respiratory: Moving air well bilaterally Gastrointestinal: Abdomen soft nontender nondistended positive bowel sounds. Extremities: No clubbing cyanosis or edema. neuro: Nonfocal Total time spent discharging patient was 33 min SA/MODL Voice ID: [id number] Report ID: [id number]
[2019-06-29] MEDS ORDERED: FAMOTIDINE 20 MG TAB PO SCH (21:00)
[2019-06-29] MEDS ORDERED: MIRTAZAPINE 15 MG TAB PO SCH (21:00)
== END 2019-06-29 10:45 | disposition home or self-care (01) | DRG 308 ==
LOC: ER 15:48 → ERHOLD 20:53 → 2ND 21:32
PROVIDERS: ADMIT Family Medicine; ATTEND Family Medicine
DX: I48.91 Unspecified atrial fibrillation (principal); I50.43 Acute on chronic combined systolic (congestive) and diastolic (congestive) heart failure; J96.11 Chronic respiratory failure with hypoxia; N17.9 Acute kidney failure, unspecified; I11.0 Hypertensive heart disease with heart failure; J42 Unspecified chronic bronchitis; F43.10 Post-traumatic stress disorder, unspecified; F41.9 Anxiety disorder, unspecified; Z99.81 Dependence on supplemental oxygen
CPT/HCPCS: 36415; 71045; 80048; 80053; 80061; 80076; 81003; 82553; 83735; 83880; 84100; 84439; 84443; 84484; 85025; 85610; 93005; 94640; 94760; 96365; 96366; 96375; 99285; J0696; J1160; J1940; J2270; J2405; J3475; J7512; J8610

== ENCOUNTER 2019-08-15 13:18 | Emergency (ER) | payer OTHER ==
--- OUTSIDE RECORDS SUMMARY | 2019-08-15 13:23 | XMS REPORT ---
:1950 Author Organization [facility] Address [address] [place] [address] Care Team Providers Name Role Phone ADDY [...] Medications This patient has no known medications. Encounters Start End Encounter Admission Attending Care Care Encounter Date/Time Date/Time Type Type Clinicians Facility Department ID 2019-08-06 2019-08-06 Outpatient [facility] CAR 7501 07:08:00 07:08:00 Results Test Description Test Time Test Comments [...] 0.6-1.3 CALCIUM (test code=CA) 8.0 mg/dL 8.0-10.5 [id number] 08:05:00 Test Item Value Reference Range Comments PHOSPHOROUS (test code=PHOS) 2.7 MG/DL 2.5-4.9 [id number] 08:05:00 Test Item Value Reference Range Comments MAGNESIUM (test code=MAG) 2.00 mg/dL 1.8-2.4 CBC W/AUTO [id number] 07:06:00 Test Item Value Reference Range Comments [...] DIFF REQUIRED (test code=MDIFF) NO BASIC METABOLIC [id number] 08:27:00 Test Item Value Reference Range Comments [...] 0.6-1.3 CALCIUM (test code=CA) 8.0 mg/dL 8.0-10.5 [id number] 08:27:00 Test Item Value Reference Range Comments PHOSPHOROUS (test code=PHOS) 2.1 MG/DL 2.5-4.9 [id number] 08:27:00 Test Item Value Reference Range Comments MAGNESIUM (test code=MAG) 1.80 mg/dL 1.8-2.4 CBC W/AUTO [id number] 07:27:00 Test Item Value Reference Range Comments [...] DIFF REQUIRED (test code=MDIFF) NO COMPREHENSIVE METABOLIC [id number] 08:31:00 Test Item Value Reference Range Comments [...] PHOSPHATASE TOTAL 43 IUnit/L 20-125 (test code=ALKP) [id number] 08:31:00 Test Item Value Reference Range Comments PHOSPHOROUS (test code=PHOS) 2.1 MG/DL 2.5-4.9 [id number] 08:31:00 Test Item Value Reference Range Comments MAGNESIUM (test code=MAG) 2.00 mg/dL 1.8-2.4 - XR CHEST 1 [id number] 08:31:00 FAX: Flaquito Doty MD [place]: St: ADM FAX: Gregg Martinez [phone] FAX: Bhupinder Avila MD [phone] [facility] 1950 Age[facility]S: 69[facility]M [address] [place] [address] Blvd Unit #: [id number] Loc: G.[address] [place] [address] Phys: Flaquito Doty MD Acct: [id number] Dis Date: Status: ADM IN PHONE #: [phone] Exam Date: 2018 0804 FAX #: [phone] Reason: pneumonia EXAMS: CPT CODE: [id number] XR CHEST 1 V 94026 Patient: YASH CLINTON. : 1950; Age: 69 years; Gender: Male. MR: [id number]. Ordering physician: Flaquito Doty MD. PORTABLE CHEST [...] No infiltrate. Chronic changes as described. SL: [id number] at 0831 Reported and signed by : Luis Rojo M.D. CC: Flaquito Doty MD; Gregg Coulter MD; Bhupinder Avila MD Technologist: Freda Christianson, RT (R); Meg Suh RT(R) Trnscrd Date/Time/By: 06/12/2019 (0831) : By: [email or web address] Orig Print D/T: S: 06/12/2019 (7304) PAGE 1 [facility]O [id number] 07: 54:00 Test Item Value Reference Range [...] 0.0-0.1 MANUAL DIFF REQUIRED (test code=MDIFF) NO [id number] 15:46:00 Test Item Value Reference Range Comments GLUBED (test code=GLUBED) 96 MG/DL 70-110 Performed by certified cable ferryboat operator at [facility] THROMBOPLASTIN TIME [id number] 14:57:00 Test Item Value Reference Range Comments THROMBOPLASTIN TIME PARTIAL 64.6 Seconds 25.0-39.5 Therapeutic Range: (test code=PTT) 50.4 - 88.3 Seconds Effective 10/20/2018 - XR CHEST 1 [id number] 08:29:00 FAX: Flaquito Doty MD [place]: St: ADM FAX: Gregg Martinez [phone] FAX: Bhupinder Avila MD [phone] Name: YASH CLINTON [facility] : 1950 Age/S: 69/M [address] [place] [address] Unit #: [id number] Loc: G.M317 [place] [address] Phys: Flaquito Doty MD Acct: [id number] Dis Date: Status: ADM IN PHONE #: [phone] Exam Date: 2018 0559 FAX #: [phone] Reason: pneumonia EXAMS: CPT CODE: [id number] XR CHEST 1 V 11397 Clinical Indication: Pneumonia. Comparison: 06/10/2019. Impression: Chest, single view. Persistent bilateral airspace opacities representing edema or pneumonia, not significantly changed since the prior exam. Cardiac silhouetteis prominent. No pleural effusion or pneumothorax. SL: [id number] at 0829 Reported and signed by: Latisha Bejarano M.D. CC: Flaquito Doty MD; Gregg Coulter MD; Bhupinder Avila MD Technologist: Neema Rosas, RT(R); Trevon Frances RT(R) Trnscrd Date/Time/By: 06/11/2019 (828) : By: [email or web address] Orig Print D/T: S: 06/11/2019 (32) PAGE 1 Signed ReportCOMPREHENSIVE METABOLIC [id number] 07:23:00 Test Item Value Reference Range Comments [...] PHOSPHATASE TOTAL 37 IUnit/L 20-125 (test code=ALKP) [id number] 07:23:00 Test Item Value Reference Range Comments PHOSPHOROUS (test code=PHOS) 3.1 MG/DL 2.5-4.9 [id number] 07:23:00 Test Item Value Reference Range Comments MAGNESIUM (test code=MAG) 2.10 mg/dL 1.8-2.4 THROMBOPLASTIN TIME [id number] 07:11:00 Test Item Value Reference Range Comments THROMBOPLASTIN TIME PARTIAL 81.0 Seconds 25.0-39.5 Therapeutic Range: (test code=PTT) 50.4 - 88.3 Seconds Effective 10/20/2018 CBC W/AUTO [id number] 06:49:00 Test Item Value Reference Range Comments [...] 0.0-0.1 MANUAL DIFF REQUIRED (test code=MDIFF) NO [id number] 06:36:00 Test Item Value Reference Range Comments GLUBED (test code=GLUBED) 95 MG/DL 70-110 Performed by certified cable ferryboat operator at [facility] [id number] 00:19:00 Test Item Value Reference Range Comments GLUBED (test code=GLUBED) 118 MG/DL 70-110 Performed by certified cable ferryboat operator at [facility] THROMBOPLASTIN TIME [id number] 23:15:00 Test Item Value Reference Range Comments THROMBOPLASTIN TIME PARTIAL 81.1 Seconds 25.0-39.5 Therapeutic Range: (test code=PTT) 50.4 - 88.3 Seconds Effective 10/20/2018 [id number] 18:13:00 Test Item Value Reference Range Comments GLUBED (test code=GLUBED) 125 MG/DL 70-110 Performed by certified cable ferryboat operator at [facility] THROMBOPLASTIN TIME [id number] 15:59:00 Test Item Value Reference Range Comments THROMBOPLASTIN TIME PARTIAL 79.3 Seconds 25.0-39.5 Therapeutic Range: (test code=PTT) 50.4 - 88.3 Seconds Effective 10/20/2018 - XR CHEST 1 [id number] 13:48:00 FAX: Flaquito Doty MD [place]: St: ADM FAX: Richardson MoreGregg higginbotham [phone] FAX: Bhupinder Avila MD [phone] Name: YASH CLINTON [facility] : 1950 Age/S: 69/M [address] [place] [address] Unit #: [id number] Loc: G.[address] [address] Phys: Flaquito Doty MD Acct: [id number] Dis Date: Status: ADM IN PHONE #: [phone] Exam Date: 2018 1345 FAX #: [phone] Reason: pneumonia EXAMS: CPT CODE: [id number] XR CHEST 1 V 72594 Clinical Indication: Pneumonia. Comparison: 06/09/2019. CT 06/08/2019. Impression: Chest, single view. Stable position of support apparatus. Cardiac silhouette is prominent. Improved aeration of the lung bases. Right apical subpleural nodularity is similar to the prior CT. No pneumothorax. No acute osseous abnormality. SL: [id number] at 1348 Reported and signed by: Latisha Bejarano M.D. CC: lFaquito Doty MD; Gregg Lara MD; Bhupinder Avila MD Technologist: Chris Li RT(R) Trnscrd Date/Time/By: 11/2018 (7261) : By: [email or web address] Orig Print D/T: S: 06/10/2019 (7166) PAGE 1 Signed [id number] 12:30:00 Test Item Value Reference Range Comments GLUBED (test code=GLUBED) 142 MG/DL 70-110 Performed by certified cable ferryboat operator at [facility] THROMBOPLASTIN TIME [id number] 08:27:00 Test Item Value Reference Range Comments THROMBOPLASTIN TIME PARTIAL 49.1 Seconds 25.0-39.5 Therapeutic Range: (test code=PTT) 50.4 - 88.3 Seconds Effective 10/20/2018 BASIC METABOLIC [id number] 04:59:00 Test Item Value Reference Range Comments [...] 0.6-1.3 CALCIUM (test code=CA) 8.5 mg/dL 8.0-10.5 [id number] 04:59:00 Test Item Value Reference Range Comments PHOSPHOROUS (test code=PHOS) 3.0 MG/DL 2.5-4.9 [id number] 04:59:00 Test Item Value Reference Range Comments MAGNESIUM (test code=MAG) 2.20 mg/dL 1.8-2.4 CBC W/AUTO [id number] 04:48:00 Test Item Value Reference Range Comments [...] DIFF REQUIRED (test code=MDIFF) NO THROMBOPLASTIN TIME [id number] 00:55:00 Test Item Value Reference Range Comments THROMBOPLASTIN TIME PARTIAL 51.3 Seconds 25.0-39.5 Therapeutic Range: (test code=PTT) 50.4 - 88.3 Seconds Effective 10/20/2018 [id number] 00:27:00 Test Item Value Reference Range Comments GLUJAQUELIN (test code=GLUBED) 124 MG/DL 70-110 Performed by certified cable ferryboat operator at [facility] - XR CHEST 1 [id number] 07:27:00 FAX: Gregg Martinez [place]: St: [facility] FAX: David See [phone] FAX : Bhupinder Avila MD [phone] Name: YASH CLINTON [facility] : 1950 Age/S: 69/M [address] [place] [address] Unit #: [id number] Loc: G.M[address] [place] [address] Phys: Miroslava See NP Acct: [id number] Dis Date: Status: ADM IN PHONE #: [phone] Exam Date: 06/09 FAX #: [phone] Reason: RESP FAILURE EXAMS: CPT CODE: [id number] XR CHEST 1 V 20583 1 VIEW CXR. PORTABLE EXAM 5:13 AM [...] one day interval. END OF IMPRESSION SL: [id number] at 0727 Reported and signed by: Jenaro Mcclelland M.D. CC: Gregg Coulter MD; Miroslava See EXTRACTOR OPERATOR SOLVENT [employer]ESS; Bhupinder Avila MD Technologist: EDGAR Vasquez) Trnscrd Date/Time/By: 06/09/2019 (0753) : By: [email or web address] Orig Print D/T: S: 06/09/2019 (7661) PAGE 1 Signed ReportARTERIAL BLOOD [id number] 06:32:00 Test Item Value Reference Range Comments [...] (test code=PEEPA) 5 cmH2O Performed by certified cable ferryboat operator at [facility] ABG TEMPERATURE (test 96.0 F code=TEMPA) ABG SITE (test code=SITEA) L Rad PREDICTED AA GRADIENT (test 61 code=AP) PREDICTED PO2 (test code=OP) 174 a/A RATIO (test code=RATIO) 0.42 TCO2 ARTERIAL (test 34 code=TCO2A) A-A GRADIENT (test 137 code=AAGRADE) BASIC METABOLIC [id number] 04:54:00 Test Item Value Reference Range Comments [...] 0.6-1.3 CALCIUM (test code=CA) 8.4 mg/dL 8.0-10.5 [id number] 04:54:00 Test Item Value Reference Range Comments PHOSPHOROUS (test code=PHOS) 3.0 MG/DL 2.5-4.9 [id number] 04:54:00 Test Item Value Reference Range Comments MAGNESIUM (test code=MAG) 2.50 mg/dL 1.8-2.4 CALCIUM [id number] 04:54:00 Test Item Value Reference Range Comments CALCIUM IONIZED (test code=JOSH) 1.15 MMOL/L 1.12-1.32 BASIC METABOLIC [id number] 04:34:00 Test Item Value Reference Range Comments SODIUM (test code=NA) mEq/L 134-147 POTASSIUM (test code=K) mEq/L 3.4-5.0 CHLORIDE (test code=CL) mEq/L 100-108 CARBON DIOXIDE (test code=CO2) mEq/L 21-33 ANION GAP (test code=GAP) 0-20 GLUCOSE (test code=GLU) mg/dL 70-110 BLOOD UREA NITROGEN (test code=BUN) mg/dL 7-18 GLOMERULAR FILTRATION RATE (test code=GFR) 70-80 CREATININE (test code=CREAT) mg/dL 0.6-1.3 CALCIUM (test code=CA) mg/dL 8.0-10.5 [id number] 04:34:00 Test Item Value Reference Range Comments PHOSPHOROUS (test code=PHOS) MG/DL 2.5-4.9 [id number] 04:34:00 Test Item Value Reference Range Comments MAGNESIUM (test code=MAG) mg/dL 1.8-2.4 CALCIUM [id number] 04:34:00 Test Item Value Reference Range Comments CALCIUM IONIZED (test code=JOSH) 1.15 MMOL/L 1.12-1.32 THROMBOPLASTIN TIME [id number] 04:24:00 Test Item Value Reference Range Comments THROMBOPLASTIN TIME PARTIAL 84.3 Seconds 25.0-39.5 Therapeutic Range: (test code=PTT) 50.4 - 88.3 Seconds Effective 10/20/2018 CBC W/AUTO [id number] 04:12:00 Test Item Value Reference Range Comments [...] 0.0-0.1 MANUAL DIFF REQUIRED (test code=MDIFF) NO [id number] 00:11:00 Test Item Value Reference Range Comments GLUBED (test code=GLUBED) 168 MG/DL 70-110 Performed by certified cable ferryboat operator at [facility] THROMBOPLASTIN TIME [id number] 20:39:00 Test Item Value Reference Range Comments THROMBOPLASTIN TIME PARTIAL 58.1 Seconds 25.0-39.5 Therapeutic Range: (test code=PTT) 50.4 - 88.3 Seconds Effective 10/20/2018 THROMBOPLASTIN TIME [id number] 13:17:00 Test Item Value Reference Range Comments THROMBOPLASTIN TIME PARTIAL 48.6 Seconds 25.0-39.5 Therapeutic Range: (test code=PTT) 50.4 - 88.3 Seconds Effective 10/20/2018 - XR CHEST 1 [id number] 07:24:00 FAX: Gregg Martinez [phone] [place]: St: ADM FAX: Bhupinder Avila MD [phone] FAX : Krissy Espana MD Name: YASH CLINTON [facility] [place] : 1950 Age/S: 69/M [address] [place] [address] Blvd Unit #: [id number] Loc: G.M317 [place] [address] Phys: Krissy Espana MD Acct: [id number] Dis Date: Status: ADM IN PHONE #: [phone] Exam Date: 06/08 FAX #: [phone] Reason: VENTED PATIENT, FOLLOW- UP EXAMS: CPT CODE: [id number] XR CHEST 1 V 76535 EXAM: CHEST SINGLE VIEW HISTORY: 69-year-old male, [...] interstitial prominence suggestive of congestion/mild edema. SL: [id number] at 0724 Reported and signed by: Nile Espitia M.D. CC: Gregg Coulter MD; Bhupinder Avila MD; Krissy Espana MD Technologist: RT Blanka(R) Trnscrd Date/Time/By: 09/2018 (0724) : By: [email or web address] Orig Print D/T: S: 06/08/2019 (0727) PAGE 1 Signed ReportACUTE HEPATITIS [id number] 07:12:00 Test Item Value Reference Range Comments AB HEPATITIS A IGM (test code=HAVMAB) NON REACTIVE INDEX NON REACT. AG HEPATITIS B SURFACE (test code=HBSAG) NON REACTIVE INDEX NonReactive AB HEPATITIS B CORE IGM (test NON REACTIVE INDEX NON REACT. code=HBCMAB) AB HEPATITIS C (test code=HCVAB) NON REACTIVE INDEX NON REACT. COMMENTS: At start of hemodialysisAB HEPATITIS B [id number] 07:12:00 Test Item Value Reference Range Comments AB HEPATITIS B SURFACE (test < 3.1 mIU/mL Immunity>9.9 Status of Immunity code=HBSAB) Anti-HBs Level Inconsistent with Immunity 0.0 - 9.9Consistent with Immunity >9.9Performed At: [facility] [address] [place], [place] [id number] Nilson Aguilar MD Ph:[phone] COMMENTS: At start of hemodialysis- CT ABD PELVIS W/O [id number] 06:02:00 Name: YASH CLINTON [facility] [place] : 1950 Age/S: 69 / M [address] [place] [address] Blvd Unit #: [id number] Loc: [facility] [id number] Phys: Krissy Espana MD Acct: [id number] Dis Date: Status: ADM IN PHONE #: [phone] Exam Date: 06/08/2019 0502 FAX #: [phone] Reason: IRREGULAR CXR EXAMS: CPTCODE: [id number] CT ABD PELVIS W/O CONT 75177 EXAM: CT, CT CHEST ABDOMEN AND PELVIS [...] 1 Signed Report (CONTINUED) Name: YASH CLINTON [facility] : 1950ge/S: 69 / M [address] [place] [address] Blvd Unit #: [id number] Loc: [place] [address] Phys: Krissy Espana MD Acct: [id number] Dis Date: Status: ADM IN PHONE#: [phone] Exam Date: 06/08/2019 050 FAX #: [phone] Reason:IRREGULAR CXR EXAMS: CPT CODE: [id number] CT ABD PELVIS W/O CONT 23258 <Continued> LIVER: Unremarkable. GALLBLADDER: Sludge and stone [...] 2 Signed Report (CONTINUED) Name: YASH CLINTON : 1950 Age/S: 69 / M [address] [place] [address] Unit #: [id number] Loc: [place] [address] Phys: Krissy Espana MD Acct : [id number] Dis Date: Status: ADM IN PHONE #: [phone] Exam Date: 06/08/2019501 FAX #: [phone] Reason: IRREGULAR CXR EXAMS: CPT CODE: [id number] CT ABD PELVIS W/O CONT 99446 <Continued> 4. Atherosclerosis. 5. Enlarged prostate. Nondistended urinary bladder with Kent's catheter and small intraluminal air. Small slightly dense urinary in the urinary bladder. Please correlate with labs. 6. Body wall edema. 7. Tip of endotracheal tube at solo. Tip of the right IJ venous catheter in the right atrium. Tip of the nasogastric tube in gastric fundus. SL: JSVANNAD-H at 0602 Reported and signed by: Mio Land M.D. CC: Gregg Coulter MD; Bhupinder Avila MD; Krissy Espana MD Technologist: Rosaura Whitehead, RT(R) CTDI: DLP: Trnscb Date/Time: 06/08 (06) [email or web address] Orig Print D/T: S: 06/08/2019 ( 0605) PAGE 3 Signed Report- CT CHEST W/O [id number] 06:02:00 Name: YASH CLINTON : 1950 Age/S: 69 / M [address] [place] [address] Unit #: [id number] Loc: [place], [place] Phys: Krissy Espana MD Acct: [id number] Dis Date: Status: ADM IN PHONE #: [phone] Exam Date: 06/08/2019501 FAX #: [phone] Reason: IRREGULAR CXR EXAMS: CPTCODE: [id number] CT CHEST W/O CONTRAST 02141 EXAM: CT, CT CHEST ABDOMEN AND PELVIS [...] 1 Signed Report (CONTINUED) Name: YASH CLINTON [facility] : 1950ge/S: 69 / M [address] [place] [address] Unit #: [id number] Loc: [place] [address] Phys: Krissy Espana MD Acct: [id number] Dis Date: Status: ADM IN PHONE#: [phone] Exam Date: 06/08/2019 0502 FAX #: [phone] Reason:IRREGULAR CXR EXAMS: CPT CODE: [id number] CT CHEST W/O CONTRAST 01363 <Continued> LIVER: Unremarkable. GALLBLADDER: Sludge and stone [...] 2 Signed Report (CONTINUED) Name: YASH CLINTON [facility] : 1950 Age/S: 69 / M [address] [place] [address] Unit #: [id number] Loc: [place] [address] Phys: Krissy Espana MD Acct : [id number] Dis Date: Status: ADM IN PHONE #: [phone] Exam Date: 06/08/2019 0502 FAX #: [phone] Reason: IRREGULAR CXR EXAMS: CPT CODE: [id number] CT CHEST W/O CONTRAST 11032 <Continued> 4. Atherosclerosis. 5. Enlarged prostate. Nondistended urinary bladder with Kent's catheter and small intraluminal air. Small slightly dense urinary in the urinary bladder. Please correlate with labs. 6. Body wall edema. 7. Tip of endotracheal tube at solo. Tip of the right IJ venous catheter in the right atrium. Tip of the nasogastric tube in gastric fundus. SL: JSYED-H at 0602 Reported and signed by: Mio Land M.D. CC: Gregg Coulter MD; Bhupinder Avila MD; Krissy Espana MD Technologist: Rosaura Whitehead, RT(R) CTDI: DLP: Trnscb Date/Time: 06/08 (06) [email or web address] Orig Print D/T: S: 06/08/2019 ( 604) PAGE 3 Signed ReportBASIC METABOLIC [id number] 04:51:00 Test Item Value Reference Range Comments [...] 0.6-1.3 CALCIUM (test code=CA) 7.7 mg/dL 8.0-10.5 [id number] 04:51:00 Test Item Value Reference Range Comments PHOSPHOROUS (test code=PHOS) 4.6 MG/DL 2.5-4.9 [id number] 04:51:00 Test Item Value Reference Range Comments MAGNESIUM (test code=MAG) 2.50 mg/dL 1.8-2.4 THROMBOPLASTIN TIME [id number] 04:47:00 Test Item Value Reference Range Comments THROMBOPLASTIN TIME PARTIAL 47.6 Seconds 25.0-39.5 Therapeutic Range: (test code=PTT) 50.4 - 88.3 Seconds Effective 10/20/2018 CBC W/AUTO [id number] 04:37:00 Test Item Value Reference Range Comments [...] DIFF REQUIRED (test code=MDIFF) NO ARTERIAL BLOOD [id number] 04:10:00 Test Item Value Reference Range Comments [...] (test code=PEEPA) 5 cmH2O Performed by certified cable ferryboat operator at [facility] ABG TEMPERATURE (test 97.6 F code=TEMPA) ABG SITE (test code=SITEA) L Rad PREDICTED AA GRADIENT (test 54 code=AP) PREDICTED PO2 (test code=OP) 155 a/A RATIO (test code=RATIO) 0.50 TCO2 ARTERIAL (test 33 code=TCO2A) A-A GRADIENT (test 106 code=AAGRADE) THROMBOPLASTIN TIME [id number] 12:13:00 Test Item Value Reference Range Comments THROMBOPLASTIN TIME PARTIAL 60.8 Seconds 25.0-39.5 Therapeutic Range: (test code=PTT) 50.4 - 88.3 Seconds Effective 10/20/2018 - XR CHEST 1 [id number] 11:59:00 FAX: Gregg Martinez [place]: St: ADM FAX: David See [phone] FAX : Bhupinder Avila MD [phone] Name: YASH CLINTON [facility] [place] : 1950 Age/S: 69/M [address] [place] [address] Unit #: [id number] Loc: G.M[address] [place] [address] Phys: Miroslava See NP Acct: [id number] Dis Date: Status: ADM IN PHONE #: [phone] Exam Date: 06/07 1154 FAX #: [phone] Reason: resp failure EXAMS: CPT CODE: [id number] XR CHEST 1 V 61866 1 VIEW CXR. PORTABLE EXAM 11:38 AM [...] Stable support devices. END OF IMPRESSION SL: [id number] Electronically Signedby Gildardo Mcclelland on 06/07/2019 at 7220 Reported and signed by: Jenaro Mcclelland M.D. CC: Gregg Coulter MD; Miroslava See EXTRACTOR OPERATOR SOL[employer]ESS; Bhupinder Avila MD Technologist: RT Tessa(Mark) Trnmard Date/Time/By: 06/07/2019 (6579) : By: MasonRTB Orig Print D/T: S: 06/07/2019 (9486) PAGE 1 Signed Report- XR ABDOMEN 1V ([facility])2019-06-07 09:56:00 FAX: Gregg Martinez [phone] [place]: St: ADM FAX: Bhupinder Avila MD [phone] FAX: Jesse Carlisle MD [phone] ------ Name: YASH CLINTON [facility] : 1950 Age/S: 69/M [address] [place] [address] Unit #: [id number] Loc: G.M[address] [place] [address] Phys: Jesse Carlisle MD Acct: [id number] Dis Date: Status: ADM IN PHONE #: [phone] Exam Date: 06/07/2019 09 FAX #: [phone] Reason: ogt EXAMS: CPT CODE: [id number] XR ABDOMEN 1V ([facility]) 9[address]82 1 VIEW ABDOMEN INDICATION: Orogastric tube placement. COMPARISON: No relevant priors available. NG tube tip and sidehole projected within the gastric lumen. Bowel gas pattern, soft tissues and lung bases normal. IMPRESSION: NG tube within the gastric lumen. END IMPRESSION [id number] at 0956 Reported and signed by: Jenaro Mcclelland M.D. CC: Gregg Coulter MD; Bhupinder Avila MD; Jesse Carlisle MD Technologist: Aurelia Gustafson RT(R) Trnscrd Date/Time/By: 06/07/2019 (2221) : By: MasonRTB Orig Print D/T: S: 08/2018 (6734) PAGE 1 Signed Report- XR CHEST 1 [id number] 09:52:00 FAX: Gregg Martinez [phone] [place]: St: ADM FAX: Bhupinder Avila MD [phone] FAX: Jesse Carlisle MD [phone] [facility] 1950 Age[facility]S: 69/M [address] [place] [address] Unit #: [id number] Loc: [address] [place] [address] Phys: Jesse Carlisle MD Acct: [id number] Dis Date: Status: ADM IN PHONE #: [phone] Exam Date: 06/07/2019 0947 FAX #: [phone] Reason: ett EXAMS: CPT CODE: [id number] XR CHEST 1 V 31413 Portable chest performed June 07, 2019 0937 [...] 2. Lines and tubes as above. at 0925 Reported and signed by: Ghada Lomas M.D. CC: Gregg Coulter MD;Bhupinder Avila MD; Jesse Carlisle MD Technologist: Aurelia Gustafson RT(R) Trnscrd Date/Time/By: 08/2018 (6830) : By: MasonNMG PAGE 1 Signed ReportBASIC METABOLIC [id number] 07:02:00 Test Item Value Reference Range Comments [...] 0.6-1.3 CALCIUM (test code=CA) 7.1 mg/dL 8.0-10.5 [id number] 07:02:00 Test Item Value Reference Range Comments PHOSPHOROUS (test code=PHOS) 3.9 MG/DL 2.5-4.9 [id number] 07:02:00 Test Item Value Reference Range Comments MAGNESIUM (test code=MAG) 2.10 mg/dL 1.8-2.4 THROMBOPLASTIN TIME [id number] 07:00:00 Test Item Value Reference Range Comments THROMBOPLASTIN TIME PARTIAL 61.8 Seconds 25.0-39.5 Therapeutic Range: (test code=PTT) 50.4 - 88.3 Seconds Effective 10/20/2018 CBC W/AUTO [id number] 06:50:00 Test Item Value Reference Range Comments [...] DIFF REQUIRED (test code=MDIFF) NO THROMBOPLASTIN TIME [id number] 19:33:00 Test Item Value Reference Range Comments THROMBOPLASTIN TIME PARTIAL 53.8 Seconds 25.0-39.5 Therapeutic Range: (test code=PTT) 50.4 - 88.3 Seconds Effective 10/20/2018 ARTERIAL BLOOD [id number] 19:25:00 Test Item Value Reference Range Comments [...] (test code=PEEPA) 5 cmH2O Performed by certified cable ferryboat operator at [facility] ABG TEMPERATURE (test 98.1 F code=TEMPA) ABG SITE (test code=SITEA) L Rad PREDICTED AA GRADIENT (test 59 code=AP) PREDICTED PO2 (test code=OP) 170 a/A RATIO (test code=RATIO) 0.44 TCO2 ARTERIAL (test 28 code=TCO2A) A-A GRADIENT (test 128 code=AAGRADE) ARTERIAL BLOOD [id number] 16:22:00 Test Item Value Reference Range Comments [...] (test code=PEEPA) 5 cmH2O Performed by certified cable ferryboat operator at [facility] ABG TEMPERATURE (test 98.6 F code=TEMPA) ABG SITE (test code=SITEA) R Rad PREDICTED AA GRADIENT (test 59 code=AP) PREDICTED PO2 (test code=OP) 170 a/A RATIO (test code=RATIO) 0.41 TCO2 ARTERIAL (test 23 code=TCO2A) A-A GRADIENT (test 135 code=AAGRADE) ACUTE HEPATITIS [id number] 14:30:00 Test Item Value Reference Range Comments AB HEPATITIS A IGM (test code=HAVMAB) NON REACTIVE INDEX NON REACT. AG HEPATITIS B SURFACE (test code=HBSAG) NON REACTIVE INDEX NonReactive AB HEPATITIS B CORE IGM (test NON REACTIVE INDEX NON REACT. code=HBCMAB) AB HEPATITIS C (test code=HCVAB) NON REACTIVE INDEX NON REACT. COMMENTS: At start of hemodialysisAB HEPATITIS B [id number] 14:30:00 Test Item Value Reference Range Comments AB HEPATITIS B SURFACE (test code=HBSAB) COMMENTS: At start of hemodialysisACUTE HEPATITIS [id number] 14:29:00 Test Item Value Reference Range Comments AB HEPATITIS A IGM (test code=HAVMAB) INDEX NON REACT. AG HEPATITIS B SURFACE (test code=HBSAG) NON REACTIVE INDEX NonReactive AB HEPATITIS B CORE IGM (test NON REACTIVE INDEX NON REACT. code=HBCMAB) AB HEPATITIS C (test code=HCVAB) NON REACTIVE INDEX NON REACT. COMMENTS: At start of hemodialysisAB HEPATITIS B [id number] 14:29:00 Test Item Value Reference Range Comments AB HEPATITIS B SURFACE (test code=HBSAB) COMMENTS: At start of hemodialysisPROTHROMBIN [id number] 14:23:00 Test Item Value Reference Range Comments [...] ALREADY DONE WITHIN LAST 24 HOURSACUTE HEPATITIS [id number] 14:02:00 Test Item Value Reference Range Comments AB HEPATITIS A IGM (test code=HAVMAB) INDEX NON REACT. AG HEPATITIS B SURFACE (test code=HBSAG) NON REACTIVE INDEX NonReactive AB HEPATITIS B CORE IGM (test INDEX NON REACT. code=HBCMAB) AB HEPATITIS C (test code=HCVAB) INDEX NON REACT. COMMENTS: At start of hemodialysisAB HEPATITIS B [id number] 14:02:00 Test Item Value Reference Range Comments AB HEPATITIS B SURFACE (test code=HBSAB) COMMENTS: At start of hemodialysisTHROMBOPLASTIN TIME [id number] 13:50:00 Test Item Value Reference Range Comments THROMBOPLASTIN TIME PARTIAL 45.8 Seconds 25.0-39.5 Therapeutic Range: (test code=PTT) 50.4 - 88.3 Seconds Effective 10/20/2018 COMMENTS: DRAW PTT 6 HOURS AFTER INITIATION OF HEPARINARTERIAL BLOOD [id number] 12:48:00 Test Item Value Reference Range Comments [...] (test code=PEEPA) 5 cmH2O Performed by certified cable ferryboat operator at [facility] ABG TEMPERATURE (test 98.6 F code=TEMPA) ABG SITE (test code=SITEA) R Rad PREDICTED AA GRADIENT (test 57 code=AP) PREDICTED PO2 (test code=OP) 163 a/A RATIO (test code=RATIO) 0.42 TCO2 ARTERIAL (test 23 code=TCO2A) A-A GRADIENT (test 128 code=AAGRADE) - XR CHEST 1 [id number] 12:48:00 FAX: Rah Malone MD [phone] [place]: St: ADM FAX: Gregg Martinez [phone] FAX: Bhupinder Avila MD [phone] Name: YASH CLINTON [facility] : 1950 Age/S: 69/M [address] [place] [address] Unit #: [id number] Loc: G[address] [place] [address] Phys: Rah Cueva MD Acct: [id number] Dis Date: Status: ADM IN PHONE #: [phone] Exam Date: 2018 1238 FAX #: [phone] Reason: S/P INTUBATION, TRIALYSIS CATH PLACEMENT EXAMS: CPT CODE: [id number] XR CHEST 1 V 92646 PROCEDURE: CHEST SINGLE VIEW 06/06/2019 at 1156 [...] in the differential. SL: K58- H at 4663 Reported and signed by: Marco A Blanton M.D. CC: Rah Cueva MD; Gregg Coulter MD; Bhupinder Avila MD Technologist: RT Zakia(Mark) Leroymamaris Date/Time/By: 07/2018 (3873) : By: Dileep Orig Print D/T: S: 06/06/2019 (8599) PAGE 1 Signed Report- XR CHEST 1 [id number] 09:22:00 FAX: Gregg Martinez [phone] [place]: St: ADM FAX: David See [phone] FAX: Bhupinder Avila MD [phone] [facility] 1950 Age/S: 69[facility]M [address] [place] [address] Blvd Unit #: [id number] Loc: G[address] [place] [address] Phys: Miroslava See NP Acct: [id number] Dis Date: Status: ADM IN PHONE #: [phone] Exam Date: 06/06/2019 06 FAX #: [phone] Reason: follow up EXAMS: CPT CODE: [id number] XR CHEST 1 V 46752 Chest single view 06/06/2019 HISTORY: Follow-up, shortness of breath Comparison is made to 06/05/2019 FINDINGS: There is elevation of the left hemidiaphragm. Increased interstitial infiltrates are unchanged. No consolidation or pleural effusion is present. Cardiomegaly is stable. Tortuous aorta is unchanged. IMPRESSION: 1. Increased interstitial infiltrates bilaterally may represent edema or atypical pneumonitis. 2. No consolidation. 3. Stable cardiomegaly. SL: [id number] at 0922 Reported and signed by: Jun Landis M.D. CC: Gregg Coulter MD; Miroslava See NP; Bhupinder Avila MDTechnologist: Farrukh Hdez RT(R) ; Casimiro Caballero RT(R) Trnscrd Date/Time/By: 06/06/2019 (921) : By: [email or web address] Orig Print D/T: S: 06/06/2019 (5999) PAGE1 Signed ReportARTERIAL BLOOD [id number] 09:12:00 Test Item Value Reference Range Comments [...] (test 18 /MIN Performed by certified code=RRA) cable ferryboat operator at [facility] ABG TEMPERATURE (test 98.6 F code=TEMPA) ABG SITE (test code=SITEA) R Rad PREDICTED AA GRADIENT (test 58 code=AP) PREDICTED PO2 (test code=OP) 166 a/A RATIO (test code=RATIO) 0.52 TCO2 ARTERIAL (test 21 code=TCO2A) A-A GRADIENT (test 107 code=AAGRADE) BASIC METABOLIC [id number] 06:59:00 Test Item Value Reference Range Comments [...] 0.6-1.3 CALCIUM (test code=CA) 6.8 mg/dL 8.0-10.5 [id number] 06:59:00 Test Item Value Reference Range Comments PHOSPHOROUS (test code=PHOS) 8.4 MG/DL 2.5-4.9 [id number] 06:59:00 Test Item Value Reference Range Comments MAGNESIUM (test code=MAG) 2.40 mg/dL 1.8-2.4 CALCIUM [id number] 06:59:00 Test Item Value Reference Range Comments CALCIUM IONIZED (test code=JOSH) 0.91 MMOL/L 1.12-1.32 BASIC METABOLIC [id number] 06:28:00 Test Item Value Reference Range Comments SODIUM (test code=NA) mEq/L 134-147 POTASSIUM (test code=K) mEq/L 3.4-5.0 CHLORIDE (test code=CL) mEq/L 100-108 CARBON DIOXIDE (test code=CO2) mEq/L 21-33 ANION GAP (test code=GAP) 0-20 GLUCOSE (test code=GLU) mg/dL 70-110 BLOOD UREA NITROGEN (test code=BUN) mg/dL 7-18 GLOMERULAR FILTRATION RATE (test code=GFR) 70-80 CREATININE (test code=CREAT) mg/dL 0.6-1.3 CALCIUM (test code=CA) mg/dL 8.0-10.5 [id number] 06:28:00 Test Item Value Reference Range Comments PHOSPHOROUS (test code=PHOS) MG/DL 2.5-4.9 [id number] 06:28:00 Test Item Value Reference Range Comments MAGNESIUM (test code=MAG) mg/dL 1.8-2.4 CALCIUM [id number] 06:28:00 Test Item Value Reference Range Comments CALCIUM IONIZED (test code=JOSH) 0.91 MMOL/L 1.12-1.32 CBC W/AUTO [id number] 06:07:00 Test Item Value Reference Range Comments [...] 0.0-0.1 MANUAL DIFF REQUIRED (test code=MDIFF) NO [id number] 19:20:00 Test Item Value Reference Range Comments GLUBED (test code=GLUBED) 135 MG/DL 70-110 Performed by certified cable ferryboat operator at [facility] - US RETRO [id number] 18:59:00 Name: YASH CLINTON [facility] : 1950 Age/S: 69 / M [address] [place] [address] Unit #: [id number] Loc: [facility] [id number] Phys: Alexandra Carvajal MD Acct: [id number] Dis Date: Status: ADM IN PHONE #: [phone] Exam Date: 06/05/2019 1854 FAX #: [phone] Reason: XIOMY EXAMS: CPTCODE: [id number] RETRO LTD 60735 PROCEDURE: RENAL ULTRASOUND INDICATION: Acute kidney injury. [...] No hydronephrosis. 2. Left renal cyst. SL: CHAD Electronically Signed by Gildardo Castellano on at 1859 Reported and signed by: Shree Castellano M.D. PAGE 1 Signed Report ( CONTINUED) Name: YASH CLINTON [facility] : 1950 Age/S: 69 / M [address] [place] [address] Blvd Unit #: [id number] Loc: [place] [address] Phys: Ashia Carvajal MD Acct: [id number] Dis Date: Status: ADM IN PHONE #: [phone] Exam Date: 06/05/20191853 FAX #: [phone] Reason: XIOMY EXAMS: CPT CODE: [id number] [facility] [address] <Continued> CC: Alexandra Carvajal MD; Gregg Coulter MD; Bhupinder Avila MD Technologist: Dulce Ashford RDMS(AB) Trnscb Date/Time: 2018 (1858) t.[email or web address] Orig Print D/T: S: 06/05/2019 (1901 ) Probe: PAGE 2 Signed ReportRESPIRATORY VIRUS PANEL [id number] 17:00:00 Test Item Value Reference Range Comments [...] parapertussis/brochiseptica, Bordetella holmesii, and Bordetella pertussis. URINALYSIS [id number] 14:00:00 Test Item Value Reference Range Comments [...] code=MUCU) 1+ /LPF NONE SEEN UR PROTEIN [id number] 14:00:00 Test Item Value Reference Range Comments UR PROTEIN RANDOM (test 47 mg/dL Note: Change in UNITS of code=PROTU) MEASUREMENT. The Reference Range and Method Performance specificationshave not been established for this fluid. The test resultshould be correlated into the clinical context forinterpretation. UR CREATININE [id number] 14:00:00 Test Item Value Reference Range Comments UR CREATININE RANDOM 199.0 mg/dL The Reference Range and Method (test code=CREATU) Performance specificationshave not been established for this fluid. The test resultshould be correlated into the clinical context forinterpretation. URINALYSIS [id number] 13:45:00 Test Item Value Reference Range Comments [...] RBC (test code=RBCU) RBC/HPF 0-3 UR PROTEIN [id number] 13:45:00 Test Item Value Reference Range Comments UR PROTEIN RANDOM (test 47 mg/dL Note: Change in UNITS of code=PROTU) MEASUREMENT. The Reference Range and Method Performance specificationshave not been established for this fluid. The test resultshould be correlated into the clinical context forinterpretation. UR CREATININE [id number] 13:45:00 Test Item Value Reference Range Comments UR CREATININE RANDOM 199.0 mg/dL The Reference Range and Method (test code=CREATU) Performance specificationshave not been established for this fluid. The test resultshould be correlated into the clinical context forinterpretation. - XR CHEST 1 [id number] 07:37:00 FAX: Flaquito Doty MD [place]: St: ADM FAX: Gregg Martinez [phone] ------ Name : YASH CLINTON Alex [facility] : 08/1949 Age/S: 69/M [address] [place] [address] Unit #: [id number] Loc: G[address] [place] [address] Phys: Flaquito Doty MD Acct: [id number] Dis Date: Status: ADM IN PHONE #: [phone] Exam Date: 06/05/2019 0610 FAX #: [phone] Reason: pneumonia EXAMS: CPT CODE: [id number] XR CHEST 1 V 96364 Chest singleview 06/05/2019 HISTORY: Pneumonia. Comparison is made to 06/04/2019 FINDINGS: Increased interstitial infiltrates are present bilaterally. Increased bibasilar atelectasis/ infiltrates are present. Cardiomegaly is stable. Tortuous aorta is unchanged. IMPRESSION 1. Increased interstitial infiltrates bilaterally. This may represent edema or atypical pneumonia. 2. Increased bibasilar atelectasis/infiltrates.3. Stable cardiomegaly. SL: [id number] at 0737 Reported and signed by: Jun Landis M.D. CC: Flaquito Doty MD; Gregg Coulter MD Technologist: RT Nasra(Mark) Trnscrd Date/Time/By: (0737) : By: [email or web address].[email or web address] Orig Print D/T: S: 06/05/2019 (3014) PAGE 1 Signed ReportCOMPREHENSIVE METABOLIC [id number] 07:35:00 Test Item Value Reference Range Comments [...] PHOSPHATASE TOTAL 63 IUnit/L 20-125 (test code=ALKP) [id number] 07:35:00 Test Item Value Reference Range Comments PHOSPHOROUS (test code=PHOS) 5.4 MG/DL 2.5-4.9 [id number] 07:35:00 Test Item Value Reference Range Comments MAGNESIUM (test code=MAG) 2.30 mg/dL 1.8-2.4 CBC W/AUTO [id number] 06:21:00 Test Item Value Reference Range Comments [...] DIFF REQUIRED (test code=MDIFF) NO ISTAT BLOOD [id number] 05:28:00 Test Item Value Reference Range Comments [...] LACTIC ACID (test code=POCLAC) 2.0 mmol/L 0.9-1.7 [id number] 01:17:00 Test Item Value Reference Range Comments [...] if any concentrations <2 ng/mL are obtained. [id number] 21:49:00 Test Item Value Reference Range Comments TROPONIN-I (test 0.016 ng/mL 0.000-0.045 Negative: <=0.045 code=TROPI) Positive: >=0.046 Correlation with serial results, other cardiac markers andclinical findings is necessary to determine the clinicalsignificance of this result. Results using different methodologies should not be comparedto one another as quantitative results may vary by method. COMMENTS: 3 troponins total (including troponin done in ED)LACTIC ACID [id number] 20:27:00 Test Item Value Reference Range Comments LACTIC ACID REPEAT (test code=LACTR) 1.4 mmol/l 0.4-1.9 - CTA CHEST FOR [id number] 18:58:00 Name: OZYASH J [facility] : 1950 Age/S: 69 / M [address] [place] [address] Unit #: [id number] Loc: [facility] [id number] Phys: Oumar Salinas MD Acct: [id number] Dis Date: Status: REG ER PHONE #: [phone] Exam Date: 06/04/2019 1836 FAX #: [phone] Reason: recent travel, leg swelling, hypoxia, resp dist EXAMS: CPTCODE: [id number] [place] [address] Clinical Indication: recent travel, leg swelling, hypoxia, [...] right lungs. 4. Left renal cyst. SL: LANVU-H PAGE 1 Signed Report (CONTINUED ) Name: YASH CLINTON [facility] : 08/1949 Age/S: 69 / M [address] [place] [address] Blvd Unit #: [id number] Loc: [place] [address] Phys: Oumar Salinas MD Acct: [id number] Dis Date: Status: REG ER PHONE #: [phone] Exam Date: 06/04/2019 183 FAX #: [phone] Reason : recent travel, leg swelling, hypoxia, resp dist EXAMS: CPT CODE: [id number] [place] [address] <Continued> at 1858 Reported and signed by : Sylvester Duran M.D. CC: Oumar Salinas MD Technologist:Lalita Wells RT(R)(CT) CTDI: DLP: Trnscb Date/Time: 06/04/2019 (1857) LuR.LNV Orig Print D/T: S: 06/04/2019 (1900) PAGE 2 Signed ReportINFLUENZA A [id number] 18:57:00 Test Item Value Reference Range Comments INFLUENZA A (test code=FLUAPCR) Negative Negative INFLUENZA B (test code=FLUBPCR) Negative Negative B-TYPE NATRIURETIC [id number] 18:32:00 Test Item Value Reference Range Comments B-TYPE NATRIURETIC PEPTIDE (test code=BNP) 287.0 PG/ML 0-100 ARTERIAL BLOOD [id number] 18:19:00 Test Item Value Reference Range Comments [...] (test 18 /MIN Performed by certified code=RRA) cable ferryboat operator at [facility] ABG TEMPERATURE (test 98.6 F code=TEMPA) ABG SITE (test code=SITEA) R Rad PREDICTED AA GRADIENT (test 97 code=AP) PREDICTED PO2 (test code=OP) 277 a/A RATIO (test code=RATIO) 0.91 TCO2 ARTERIAL (test 26 code=TCO2A) A-A GRADIENT (test 35 code=AAGRADE) - XR CHEST 1 [id number] 18:12:00 FAX: Oumar Salinas MD [phone] [place]: St: REG Name: CLINTONYASH Alex [facility] : 1950 Age/S: 69/M [address] [place] [address] Unit#: [id number] Loc: [place] [address] Phys: Oumar Salinas MD Acct: [id number] Dis Date: Status: REG ER PHONE #: [phone] Exam Date: 06/04/2019 1872 FAX #: [phone] Reason: r/o pneumonia EXAMS: CPT CODE: [id number] XR CHEST 1 V 56493 CHEST, ONE VIEW: HISTORY: Possible pneumonia COMPARISON [...] Signed Report (CONTINUED) FAX: Oumar Salinas MD [phone] [place]: St : REG ---- Name: TOM CLINTON [facility] : 1950 Age/S: 69/M [address] [place] [address] Blvd Unit # : [id number] Loc: [place], [place] [address]Wuyo: Oumar Salinas MD Acct: [id number] Dis Date: Status: REG ER PHONE #: [phone] Exam Date: 06/04/2019 3510 FAX #: [phone] Reason: r/o pneumonia EXAMS: CPT CODE: [id number] CHEST 1 V 24236 <Continued> CC: Oumar Salinas MD Technologist: RT Zakia(R) Trnscrd Date/ Time/By: 06/04/2019 (1811) : By: MasonAJJ Orig Print D/T: S: 2018 (1815) PAGE 2 Signed ReportHEPATIC FUNCTION [id number] 18:09:00 Test Item Value Reference Range Comments TOTAL PROTEIN (test code=PROT) 7.1 g/dL 6.4-8.2 ALBUMIN (test code=ALB) 3.90 g/dL 3.4-5.0 BILIRUBIN TOTAL (test code=BILT) 0.7 MG/DL <1.5 BILIRUBIN DIRECT (test code=BILD) 0.20 MG/DL 0.0-0.30 BILIRUBIN INDIRECT (test code=BILIND) 0.50 MG/DL SGOT/AST (test code=AST) 51 IUnit/L 15-37 SGPT/ALT (test code=ALT) 52 IUnit/L 15-65 ALKALINE PHOSPHATASE TOTAL (test code=ALKP) 70 IUnit/L 20-125 [id number] 18:09:00 Test Item Value Reference Range Comments LIPASE (test code=LIP) 47 IUnit/L 73-393 [id number] 18:09:00 Test Item Value Reference Range Comments MAGNESIUM (test code=MAG) 1.80 mg/dL 1.8-2.4 TSH REFLEX TO [id number] 18:09:00 Test Item Value Reference Range Comments TSH REFLEX TO FT4 (test code=TSHREFLEX) 2.44 IU/mL 0.42-5.47 [id number] 18:09:00 Test Item Value Reference Range Comments TROPONIN-I (test 0.023 ng/mL 0.000-0.045 Negative: <=0.045 code=TROPI) Positive: >=0.046 Correlation with serial results, other cardiac markers andclinical findings is necessary to determine the clinicalsignificance of this result. Results using different methodologies should not be comparedto one another as quantitative results may vary by method. HEPATIC FUNCTION [id number] 18:06:00 Test Item Value Reference Range Comments TOTAL PROTEIN (test code=PROT) 7.1 g/dL 6.4-8.2 ALBUMIN (test code=ALB) 3.90 g/dL 3.4-5.0 BILIRUBIN TOTAL (test code=BILT) 0.7 MG/DL <1.5 BILIRUBIN DIRECT (test code=BILD) 0.20 MG/DL 0.0-0.30 BILIRUBIN INDIRECT (test code=BILIND) 0.50 MG/DL SGOT/AST (test code=AST) 51 IUnit/L 15-37 SGPT/ALT (test code=ALT) 52 IUnit/L 15-65 ALKALINE PHOSPHATASE TOTAL (test code=ALKP) 70 IUnit/L 20-125 [id number] 18:06:00 Test Item Value Reference Range Comments LIPASE (test code=LIP) 47 IUnit/L 73-393 [id number] 18:06:00 Test Item Value Reference Range Comments MAGNESIUM (test code=MAG) 1.80 mg/dL 1.8-2.4 TSH REFLEX TO [id number] 18:06:00 Test Item Value Reference Range Comments TSH REFLEX TO FT4 (test code=TSHREFLEX) IU/mL 0.42-5.47 [id number] 18:06:00 Test Item Value Reference Range Comments TROPONIN-I (test 0.023 ng/mL 0.000-0.045 Negative: <=0.045 code=TROPI) Positive: >=0.046 Correlation with serial results, other cardiac markers andclinical findings is necessary to determine the clinicalsignificance of this result. Results using different methodologies should not be comparedto one another as quantitative results may vary by method. UA RFLX MICR CULT IF [id number] 18:05:00 Test Item Value Reference Range Comments [...] src Temperature > 100.4 FSpecimen Description: CLEAN [id number] 17:53:00 Test Item Value Reference Range Comments D-DIMER (test 1374 ng/mlFEU <=500 THROMBOSIS AND/OR PULMONARY code=DDIMER) EMBOLISM AND THE CLINICAL CUT- OFF VALUE FOR EXCLUSION (500 ng/mL FEU) OF THESE CONDITIONSIS VALIDATED BY THE SMOOTH STUCCO RESURFACER OF THE METHOD. A NEGATIVE D-DIMER RESULT WHEN COMBINED WITH A CLINICALASSESSMENT OF LOW PRETEST PROBABILITY HAS BEEN SHOWN TO HAVEA HIGH NEGATIVE PREDICTIVE VALUE OF DVT OR PE. D-DIMER VALUES >500 ng/mL FEU ARE NOT DIAGNOSTIC FOR DVT, PEor DIC WITHOUT OTHER CONFIRMATORY TESTS AND APPROPRIATECLINICAL EUALUATIONS. CBC W/AUTO [id number] 17:43:00 Test Item Value Reference Range Comments [...] DIFF REQUIRED (test code=MDIFF) NO CHEMISTRY 8 [id number] 17:30:00 Test Item Value Reference Range Comments ISTAT-SODIUM (test code=NAP) MMOL/L 134-147 ISTAT-POTASSIUM (test code=KP) MMOL/L 3.4-5.0 ISTAT-CHLORIDE (test code=CLP) MMOL/L 100-108 ISTAT CARBON DIOXIDE (test code=ISTAT-CO2) mmol/L 21-33 ISTAT CALCIUM IONIZED (test code=ISTAT-JOSH) MG/DL 1.12-1.32 ISTAT-GLUCOSE (test code=GLUP) MG/DL 70-110 ISTAT-BUN (test code=BUNP) MG/DL 7-18 BEDSIDE CREATININE (test code=CREATBED) MG/DL 0.6-1.3 GLOMERULAR FILTRATION RATE POC (test code=GFRBED) 46 ML/MIN CHEMISTRY 8 [id number] 17:30:00 Test Item Value Reference Range Comments ISTAT-SODIUM (test code=NAP) 136 MMOL/L 134-147 ISTAT-POTASSIUM (test 3.8 MMOL/L 3.4-5.0 code=KP) ISTAT-CHLORIDE (test 98 MMOL/L 100-108 Performed by certified code=CLP) cable ferryboat operator at [facility] ISTAT CARBON DIOXIDE (test 26.0 mmol/L 21-33 code=ISTAT-CO2) ISTAT CALCIUM IONIZED (test 1.14 MG/DL 1.12-1.32 code=ISTAT-JOSH) ISTAT-GLUCOSE (test 134 MG/DL 70-110 code=GLUP) ISTAT-BUN (test code=BUNP) 27 MG/DL 7-18 BEDSIDE CREATININE (test 1.6 MG/DL 0.6-1.3 code=CREATBED) GLOMERULAR FILTRATION RATE 46 ML/MIN POC (test code=GFRBED) TROPONIN-I [id number] 17:28:00 Test Item Value Reference Range Comments TROPONIN-I RAPID (test 0.02 ng/mL 0.00-0.08 Performed by certified cable ferryboat operator code=TROPIRAP) at [facility] Negative: <=0.08 Positive: >=0.09An elevated troponin value alone is not sufficient todiagnose a myocardial infarction. Rather, the patient sclinical presentation (history, physical exam) and ECGshould be used in conjunction with troponin in thediagnostic evaluation of suspected myocardial infarction. Aserial sampling protocol is recommended to facilitate the identification of temporal changes in troponin levels characteristic of GA. LACTIC ACID [id number] 17:21:00 Test Item Value Reference Range Comments LACTIC ACID POC (test 2.3 MMOL/L 0.90-1.70 Performed by certified code=LACTP) cable ferryboat operator at [facility] - CTA CHEST FOR [id number] 11:56:00 Name: YASH CLINTON [facility] : 1950 Age/S: 69 / M [address] [place] [address] Bl Unit #: [id number] Loc: [facility] [id number] Phys: Dominic Duran MD Acct: [id number] Dis Date: 04/20/2019 Status: DIS IN PHONE #: [phone] Exam Date: 04/18/20191955 FAX #: [phone] Reason: LLL PNEUMONIA, COPD EAX, R/O PE Report Has Been Amended * * EXAMS: CPT CODE: [id number] [place] [address] Addendum - 05/13/2019 SIGNED 05/13/[address]: [id number]/CTCHEPE ADDENDUM: CTA chest of 04/18 is reviewed as part of routine quality compliance manager and is compared with prior CT [facility] 2017. In addition to described opacities in the [...] report was called to Dr. Cueva, consulting hair spinner on 05/13/2019 [id number] hours. at 1156 Reported and signed by : Marco A Blanton M.D. Report STUDY: - CTA CHEST FOR PE 04/18/2019 5:55 AM Ordering Physician: Dominic Duran MD Patient Name: YASH CLINTON MR: [id number] : 1950; Age: 69 years y/o Male Clinical Indication: LLL PNEUMONIA, COPD EAX, R/O PE Comparison: None TECHNIQUE: Sequential trans-axial images were obtained with a multi-detector helical CT after iodinated contrast administration. PAGE 1 Signed Report (CONTINUED) Name: YASH CLINTON [facility] : 1950 Age/S: 69 / M [address] [place] [address] Unit #: [id number] Loc: [place] [place] [address] Phys: Dominic Duran MD Acct: [id number] Dis Date: 04/20/2019 Status: DIS IN PHONE #: [phone] Exam Date: 04/18/20191955 FAX #: [phone] Reason: LLL PNEUMONIA, COPD EAX, R/O PE Report Has Been Amended EXAMS: CPT CODE: [id number] [place] [address] <Continued> Coronal, sagittal, and 3-D MIP reconstructions [...] Signed Report ( CONTINUED) Name: YASH CLINTON [facility] : 1950 Age/S: 69 /M [address] [place] [address] Unit #: [id number] Loc: [place] [address] Phys : Dominic Duran MD Acct: [id number] Dis Date: 04/20/2019 Status: DIS IN PHONE #: [phone] Exam Date: 04/18/20191955 FAX #: [phone] Reason: LLL PNEUMONIA, COPD EAX, R/O PE Report Has Been Amended EXAMS: CPT CODE: [id number] [place] [address] <Continued> 2. Diffuse pulmonary emphysema and leftlower lung opacities representing pneumonia or atelectasis. SL:[id number] at 1203 Reported and signed by: Andrade Alfaro M.D. CC: Marcia Santana MD; Dominic Duran MD Technologist:Anabel Hussein, RT(R)(CT) CTDI: DLP: TrnscbDate/Time: 04/19/2019 ( 4833) [email or web address].AP24 Orig Print D/T: S: 04/19/2019 (0501) PAGE 3 Signed ReportRHEUMATOID FACTOR [id number] 10 :10:00 Test Item Value Reference Range Comments RHEUMATOID FACTOR SCREEN (test 14.4 IU/mL 0.0-13.9 Performed At: [facility] code=RA) [address] [id number] Nilson Aguilar MD Ph:[phone] BASIC METABOLIC [id number] 08:00:00 Test Item Value Reference Range Comments [...] (test code=CA) 8.6 mg/dL 8.0-10.5 CBC W/AUTO [id number] 07:43:00 Test Item Value Reference Range Comments [...] (test code=MDIFF) NO - XR L-SPINE 2/3 [id number] 14:00:00 FAX: Marcia Li [place]: St: ADM FAX: Dominic Alexis [phone] FAX: Steven Mirza Jr [phone] Name: YASH CLINTON [facility] : 1950 Age/S: 69/M [address] [place] [address] Unit #: [id number] Loc: G.608 [place] [address] Phys: Dominic Ellington Acct: [id number] Dis Date: Status: ADM IN PHONE #: [phone] Exam Date: 04/19/2019 1028 FAX #: [phone] Reason: lumbar pain EXAMS: CPT CODE: [id number] XR L-SPINE 2/3 VIEWS 23926 LUMBAR SPINE, 3 VIEWS: HISTORY: Lumbar pain. [...] PERDUE; Steven Ayoub Jr, MD Technologist: RT Hallie(Mark) Trnscrd Date/Time/By: 04/19/2019 (1400) : By: [email or web address]/[email or web address].KVH Orig Print D/T: S: (5649) PAGE 1 Signed Report- CTA CHEST FOR [id number] 12:03:00 Name: YASH CLINTON [facility] : 1950 Age/S: 69 / M [address] [place] [address] Unit #: [id number] Loc: [facility] [id number] Phys: Dominic Duran MD Acct: [id number] Dis Date: Status: ADM IN PHONE #: [phone] Exam Date: 1956 FAX #: [phone] Reason: LLL PNEUMONIA , COPD EAX, R/O PE EXAMS: CPTCODE: [id number] [place] [address] STUDY: - CTA CHEST FOR PE 04/18/2019 5:55 AM Ordering Physician: Dominic Duran MD Patient Name: YASH CLINTON MR: [id number] : 1950; Age: 69 years y/o Male [...] 1 Signed Report (CONTINUED) Name: YASH CLINTON [facility] : 1950 Age/S: 69 / M [address] [place] [address] Blvd Unit #: [id number] Loc: [place] [address] Phys: Dominic Duran MD Acct: [id number] Dis Date: Status: ADM IN PHONE #: [phone] Exam Date: 04/18/20191955 FAX #: [phone] Reason: LLL PNEUMONIA, COPD EAX, R/ O PE EXAMS: CPT CODE: [id number] [place] [address] <Continued> SOFT TISSUES: No suspicious soft tissue lesion or abnormality. OSSEOUS STRUCTURES: Mild spinal degenerative change without fracture, dislocation, or focal osseous lesion. IMPRESSION: 1. No pulmonary embolism. 2. Diffuse pulmonary emphysema and left lower lung opacities representing pneumonia or atelectasis. SL: [id number] at 1203 Reported and signed by: Andrade Alfaro M.D. CC: Marcia Santana MD; Dominic Duran MD Technologist:Anabel Hussein, RT(R)(CT) CTDI: DLP: Trnscb Date/Time: 04/19/2019 (6113) [email or web address] Orig Print D/T: S: 04/19/2019 (6804) PAGE 2 Signed Report- XR HAND 3 + V [id number] 11:42:00 FAX: Marcia Li [phone] [place]: St: ADM FAX: Lam Mirza Jr [phone] Name: YASH CLINTON [facility] : 1950 Age/S: 69/M [address] [place] [address] Unit #: [id number] Loc: G.608 [place] [address] Phys: Jenaro Ruffin MD Acct: [id number] Dis Date: Status: ADM IN PHONE #: [phone] Exam Date: 04/18/2019 1548 FAX #: [phone] Reason: HAND PAIN; POSSIBLE RA EXAMS: CPT CODE: [id number] XR HAND 3 + [place] [address] BILATERAL HANDS: HISTORY: Bilateral hand pain. Possible [...] RT(R) Trnscrd Date/Time/By: 04/19/2019 (1142) : By: [email or web address]/Erik.RISHIH Orig Print D/T: S: 04/19/2019 (3530) PAGE 1 Signed ReportSED RATE [id number] 10:49:00 Test Item Value Reference Range Comments SED RATE WESTERGREN (test code=SEDW) 15 mm/hr 0-15 BASIC METABOLIC [id number] 07:09:00 Test Item Value Reference Range Comments [...] LIPOPROTEIN LDL (test 73 mg/dL 0-100 <100 [id number] NEAR code=LDL) OPTIMAL/ABOVE [id number] HPCBJGTUPP728-882 HIGH>LC=584 VERY HIGH*Guidelines provided by the National Cholesterol EducationProgram Adult Treatment Panel III CBC W/AUTO [id number] 06:24:00 Test Item Value Reference Range Comments [...] code=MDIFF) NO UA RFLX MICR CULT IF [id number] 12:19:00 Test Item Value Reference Range Comments [...] culture: Temperature > 100.4 FSpecimen Description: CLEAN [id number] 07:48:00 Test Item Value Reference Range Comments TROPONIN-I (test < 0.015 ng/mL 0.000-0.045 Negative: <=0.045 code=TROPI) Positive: >=0.046 Correlation with serial results, other cardiac markers andclinical findings is necessary to determine the clinicalsignificance of this result. Results using different methodologies should not be comparedto one another as quantitative results may vary by method. COMMENTS: 3 troponins total (including troponin done in ED)T4 [id number] 06: 48:00 Test Item Value Reference Range Comments T4 FREE (test code=T4F) 1.1 ng/dL 0.77-1.61 ADD ON COMMENTS: 3 troponins total (including troponin done in ED)THYROID STIMULATING [id number] 06:48:00 Test Item Value Reference Range Comments THYROID STIMULATING HORMONE (test 1.32 0.42-5.47 Results in li- International code=TSH) Units/mL ADD ON COMMENTS: 3 troponins total (including troponin done in ED)TROPONIN-I2 06:48:00 Test Item Value Reference Range Comments [...] total (including troponin done in ED)B-TYPE NATRIURETIC [id number] 04:23:00 Test Item Value Reference Range Comments B-TYPE NATRIURETIC PEPTIDE (test code=BNP) 14.8 PG/ML 0-100 BASIC METABOLIC [id number] 04:16:00 Test Item Value Reference Range Comments [...] (test code=CA) 7.8 mg/dL 8.0-10.5 HEPATIC FUNCTION [id number] 04:16:00 Test Item Value Reference Range Comments TOTAL PROTEIN (test code=PROT) 6.7 g/dL 6.4-8.2 ALBUMIN (test code=ALB) 3.60 g/dL 3.4-5.0 BILIRUBIN TOTAL (test code=BILT) 0.5 MG/DL <1.5 BILIRUBIN DIRECT (test code=BILD) 0.10 MG/DL 0.0-0.30 BILIRUBIN INDIRECT (test code=BILIND) 0.40 MG/DL SGOT/AST (test code=AST) 20 IUnit/L 15-37 SGPT/ALT (test code=ALT) 13 IUnit/L 15-65 ALKALINE PHOSPHATASE TOTAL (test code=ALKP) 43 IUnit/L 20-125 [id number] 04:16:00 Test Item Value Reference Range Comments MAGNESIUM (test code=MAG) 1.40 mg/dL 1.8-2.4 [id number] 04:16:00 Test Item Value Reference Range Comments TROPONIN-I (test < 0.015 ng/mL 0.000-0.045 Negative: <=0.045 code=TROPI) Positive: >=0.046 Correlation with serial results, other cardiac markers andclinical findings is necessary to determine the clinicalsignificance of this result. Results using different methodologies should not be comparedto one another as quantitative results may vary by method. - XR CHEST 1 [id number] 04:13:00 FAX: Rah Malone MD [place]: St: [facility] FAX: Marcia Li [phone] FAX: Cosmo Fontenot MD [phone] Name: YASH CLINTON [facility] : 1950 Age/S: 69/M [address] [place] [address] Unit #: [id number] Loc: [place] [address] Phys: Cosmo Villatoro MD Acct: [id number] Dis Date: Status: REG ER PHONE #: [phone] Exam Date: 04/18 040 FAX #: [phone] Reason: SOB EXAMS: CPT CODE: [id number] XR CHEST 1 V 72262 EXAM: CR, XR chest one view: 04/18/2019, [...] Trnscrd Date/Time/By: 04/18/2019 (0413) : By: [email or web address] [facility] Print D/T: S: 04/18/2019 (0416) PAGE 1 Signed ReportLACTIC [id number] 04:09:00 Test Item Value Reference Range Comments LACTIC ACID (test code=LACT) 1.2 mmol/L 0.4-1.9 PROTHROMBIN [id number] 03:57:00 Test Item Value Reference Range Comments [...] Infarction (to prevent recurrent infarct). CBC W/AUTO [id number] 03:51:00 Test Item Value Reference Range Comments [...] DIFF REQUIRED (test code=MDIFF) NO ARTERIAL BLOOD [id number] 03:37:00 Test Item Value Reference Range Comments [...] (test 14 /MIN Performed by certified code=RRA) cable ferryboat operator at [facility] ABG TEMPERATURE (test 102.4 F code=TEMPA) ABG SITE (test code=SITEA) R Rad PREDICTED AA GRADIENT (test 95 code=AP) PREDICTED PO2 (test code=OP) 271 a/A RATIO (test code=RATIO) 0.15 TCO2 ARTERIAL (test 29 code=TCO2A) A-A GRADIENT (test 312 code=AAGRADE) - XR CHEST 2 [id number] 16:49:00 FAX: Rah Malone MD [place]: St: REG FAX: Marcia Li [phone] --- Name: YASH CLINTON [facility] : 1950 Age/S: 68/M [address] [place] [address] Blvd Unit #: [id number] Loc: [place] [address] Phys: Rah Cueva MD Acct: [id number] Dis Date: Status: REG CLI PHONE #: [phone] Exam Date: 09/10/2018 1631 FAX #: [phone] Reason: R94.2 ,ABNORMAL RESULTS OF PULMONARY FUNCTION EXAMS: CPT CODE: [id number] XR CHEST 2 V 57042 Clinical Indication: R94.2 , ABNORMAL RESULTS OF [...] in the last exam has resolved. SL: [id number] at 4122 Reported and signed by: Sylvester Duran M.D. CC: Rah Cueva MD; Marcia Santana MD Technologist: Jhonatan Orta RT(R) Trnscrd Date/Time/By: 09/10/2018 (9820) : By: Karma.LNV Orig Print D/T : S: 09/10/2018 (4349) PAGE 1 Signed ReportSURGICAL [id number] 13:24:00 RUN DATE: [facility] *LIVE* PAGE 1 RUN TIME: 1324 Specimen Inquiry RUN USER: INTERFACE PATIENT: YASH CLINTON LOC: [place] U #: [id number] AGE/SX: 68/M ROOM: [facility] REREG DR: Radha Hernandez : [birth year] BED: 1 DIS: 07/29/18 STATUS: DIS IN TLOC: SPEC #: [id number] RECD: 07/29/18 STATUS: CLIFFORD REQ #: [id number] GRADY: 07/29/[address] [facility] [address]: Radha Hernandez MD ENTERED: 07/30/18 SP TYPE: SURG SPEC OTHR DR: Self Referred Alexandra Carvajal MD,Danuta Cueva,Rah Kline,Shanti Gonsalez,Alphonso Fox,Criselda Johnson MD,Chuck Hilton,Ayo Santana,Marcia Cooley,Tervon Villaseñor,Karlo Nguyễn,Dae Stauffer MD, MDORDERED: GM LEVEL 4 CODES: [id number] - URINE COPIES TO: Self Referred Alexandra Carvajal MD [address] [place] [address] [place] [address] [facility] [address], [address] [place], [place] [id number] Danuta Miner MD [address] [facility] [address] [place] [address] Rah Cueva MD [address] [facility] [address] [place] [address] CONTINUED ON NEXT PAGE RUN DATE: 08/01/18 [facility] *LIVE* PAGE 2 RUN TIME: 1324 Specimen Inquiry RUN USER: INTERFACE SPEC #: [id number] PATIENT: YASH CLINTON #[id number] (Continued) COPIES TO: ( Continued) Shanti Kline MD [address] [place] [address] Alphonso Gonsalez MD [address] [facility] [address] [place] [address] Vipul Fox DO [address] [facility] [address] [place], [place] [address] Criselda Salinas MD [address] [facility] [place] [address] [place]ar[place] [address] [place] [address] [email or web address] Ayo Hilton MD [address] [place], [place] [address] Macria Santana MD [address] [place] [address] [email or web address] Trevon Cooley MD [address] [place] [id number] [place] [address] [place] [address] CONTINUED ON NEXT PAGE -------- ----RUN DATE: 08/01/18 [facility] *LIVE* PAGE 3 RUN TIME: 1324 Specimen Inquiry RUN USER: INTERFACE ------ ------SPEC #: [id number] PATIENT: YASH CLINTON # [id number] (Continued) COPIES TO: (Continued) Tab Nguyễn MD [address] [place] [address] Dae Fraser MD [address] [phone] PROCEDURES: GM LEVEL 4 (Incomplete) TISSUES: 1. [...] Mcmillan MD 08/01/18 1324 END OF REPORT [id number] 18:06:00 Test Item Value Reference Range Comments GLUBED (test code=GLUBED) 111 MG/DL 70-110 Performed by certified cable ferryboat operator at [facility] [id number] 12:25:00 Test Item Value Reference Range Comments GLUBED (test code=GLUBED) 115 MG/DL 70-110 Performed by certified cable ferryboat operator at [facility] [id number] 17:40:00 Test Item Value Reference Range Comments GLUBED (test code=GLUBED) 109 MG/DL 70-110 Performed by certified cable ferryboat operator at [facility] [id number] 11:52:00 Test Item Value Reference Range Comments GLUBED (test code=GLUBED) 115 MG/DL 70-110 Performed by certified cable ferryboat operator at [facility] B-TYPE NATRIURETIC [id number] 10:03:00 Test Item Value Reference Range Comments B-TYPE NATRIURETIC PEPTIDE (test code=BNP) 14.0 PG/ML 0-100 CBC W/AUTO [id number] 08:43:00 Test Item Value Reference Range Comments [...] NO COMMENTS: Daily while in ICUCOMPREHENSIVE METABOLIC [id number] 08:19:00 Test Item Value Reference Range Comments [...] PHOSPHATASE TOTAL 61 IUnit/L 20-125 (test code=ALKP) [id number] 08:19:00 Test Item Value Reference Range Comments PHOSPHOROUS (test code=PHOS) 3.0 mg/dL 2.5-4.9 [id number] 08:19:00 Test Item Value Reference Range Comments MAGNESIUM (test code=MAG) 1.80 mg/dL 1.8-2.4 [id number] 08:16:00 Test Item Value Reference Range Comments GLUBED (test code=GLUBED) 113 MG/DL 70-110 Performed by certified cable ferryboat operator at [facility] [id number] 06:27:00 Test Item Value Reference Range Comments GLUBED (test code=GLUBED) 109 MG/DL 70-110 Performed by certified cable ferryboat operator at [facility] URINALYSIS [id number] 20:07:00 Test Item Value Reference Range Comments [...] NONE SEEN /HPF NONE SEEN UA CULT [id number] 20:07:00 Test Item Value Reference Range Comments UA CULTURE NEEDED? (test NO, WBC<10 Criteria Culture Chk Criteria not met, Urine code=UACULT) Culture cancelled. URINALYSIS [id number] 19:05:00 Test Item Value Reference Range Comments [...] RBC (test code=RBCU) RBC/HPF 0-3 UA CULT [id number] 19:05:00 Test Item Value Reference Range Comments UA CULTURE NEEDED? (test code=UACULT) Criteria Culture Chk [id number] 17:46:00 Test Item Value Reference Range Comments GLUBED (test code=GLUBED) 104 MG/DL 70-110 Performed by certified cable ferryboat operator at [facility] [id number] 11:58:00 Test Item Value Reference Range Comments GLUBED (test code=GLUBED) 113 MG/DL 70-110 Performed by certified cable ferryboat operator at [facility] [id number] 18:46:00 Test Item Value Reference Range Comments GLUBED (test code=GLUBED) 122 MG/DL 70-110 Performed by certified cable ferryboat operator at [facility] - CT HEAD/BRAIN W/O [id number] 14:40:00 Name: YASH CLINTON [facility] : 1950 Age/S: 68 / M [address] [place] [address] Unit #: [id number] Loc: [place], [place] Phys: Melany Jim MD Acct: [id number] Dis Date: Status: ADM IN PHONE #: [phone] Exam Date: 1316 FAX #: [phone] Reason: STATUS POST FALL EXAMS: CPTCODE: [id number] CT HEAD/BRAIN W/O CONT 21188 PROCEDURE: CT HEAD WITHOUT CONTRAST INDICATION: Pneumonia, [...] intact. IMPRESSION: No acute intracranial abnormality. SL: [id number] at 1440 Reported and signed by: Vipul Tam M.D. PAGE 1 Signed Report (CONTINUED) [facility] 1950 Age[facility]S: 68 / [place] [address] [place] [address] Unit #: [id number] Loc: [place] [address] Phys: Melany Jim MD Acct: [id number] Dis Date : Status: ADM IN PHONE #: [phone] Exam Date: 1312 FAX #: [phone] Reason: STATUS POST FALL EXAMS: CPT CODE: [id number] CT HEAD/BRAIN W/O CONT 13088 <Continued > CC: Radha Hernandez MD; Melany Jim MD; Marcia Santana MD Technologist: RT Linda(R)(CT) CTDI: DLP: Trnscb Date/Time: 07/26 (6830) t.REYNOLD Orig Print D/T: S: 07/26/2018 ( 5161) CTDI: DLP: PAGE 2 Signed Report- XR HIP W/PEL UNI 2+V [id number] 14:28:00 FAX: Radha Hernandez [phone] [place]: St: ADM FAX: Melany Jim MD FAX: Marcia Li [phone] Name: YASH CLINTON [facility] : 1950 Age/S: 68/M [address] [place] [address] Unit #: [id number] Loc: G.[address] [place] [address] Phys: Melany Jim MD Acct: [id number] Dis Date: Status: ADM IN PHONE #: [phone] Exam Date: 07/26/2018 1359 FAX #: [phone] Reason: STATUS POST FALL EXAMS: CPT CODE: [id number] XR HIP W/PEL UNI 2+[place] [address] Procedure: Right Hip Radiographs. Clinical Indication: Right hip pain post fall. Comparison: None. FINDINGS: The 2 views of the right hip demonstrate degenerative change involving the right hip including marginal osteophyte formation. No acute displaced fracture or dislocation is observed. IMPRESSION: 1. Degenerative change. SL: CY- H at 1428 Reported and signed by: Americo Beltran M.D. CC: Radha Hernandez MD; Melany Jim MD; Marcia Bird Technologist: HANS Gold RT(R); Rukhsana Modi RT(R) Trnmard Date/Time/By: 07/26/2018 (1428) : By: Destin Orig Print D/T: S:07/26/2018 (0058) PAGE 1 Signed [id number] 13:48:00 Test Item Value Reference Range Comments GLUBED (test code=GLUBED) 121 MG/DL 70-110 Performed by certified cable ferryboat operator at [facility] [id number] 08:25:00 Test Item Value Reference Range Comments GLUBED (test code=GLUBED) 110 MG/DL 70-110 Performed by certified cable ferryboat operator at [facility] [id number] 00:19:00 Test Item Value Reference Range Comments GLUBED (test code=GLUBED) 100 MG/DL 70-110 Performed by certified cable ferryboat operator at [facility] [id number] 18:11:00 Test Item Value Reference Range Comments GLUBED (test code=GLUBED) 112 MG/DL 70-110 Performed by certified cable ferryboat operator at [facility] [id number] 12:31:00 Test Item Value Reference Range Comments GLUBED (test code=GLUBED) 138 MG/DL 70-110 Performed by certified cable ferryboat operator at [facility] [id number] 06:03:00 Test Item Value Reference Range Comments GLUBED (test code=GLUBED) 91 MG/DL 70-110 Performed by certified cable ferryboat operator at [facility] [id number] 00:06:00 Test Item Value Reference Range Comments GLUBED (test code=GLUBED) 115 MG/DL 70-110 Performed by certified cable ferryboat operator at [facility] [id number] 18:06:00 Test Item Value Reference Range Comments GLUBED (test code=GLUBED) 103 MG/DL 70-110 Performed by certified cable ferryboat operator at [facility] [id number] 11:58:00 Test Item Value Reference Range Comments GLUBED (test code=GLUBED) 113 MG/DL 70-110 Performed by certified cable ferryboat operator at [facility] [id number] 06:57:00 Test Item Value Reference Range Comments GLUBED (test code=GLUBED) 117 MG/DL 70-110 Performed by certified cable ferryboat operator at [facility] [id number] 00:05:00 Test Item Value Reference Range Comments GLUBED (test code=GLUBED) 98 MG/DL 70-110 Performed by certified cable ferryboat operator at [facility] [id number] 20:58:00 Test Item Value Reference Range Comments GLUBED (test code=GLUBED) 103 MG/DL 70-110 Performed by certified cable ferryboat operator at [facility] SURGICAL [id number] 12:25:00 RUN DATE: 07/02/18 [facility] *LIVE* PAGE 1 RUN TIME: 1226 Specimen Inquiry RUN USER: INTERFACE PATIENT: YASH CLINTON LOC: [facility]ah[facility]U U #: [id number] AGE/SX: 68/M ROOM: [facility] RE06/20/18MUKESH DR: Radha Hernandez : [birth year] BED: 1 DIS: STATUS: ADM IN TLOC: SPEC #: [id number] RECD: 06/26/18 STATUS: CLIFFORD REQ # : [id number] GRADY: 06/26/[address] [facility] [address]: Radha Hernandez MD ENTERED: 07/02/18 SP TYPE: SURG SPEC OTHR DR: Self Referred Alexandra Carvajal MD, Maher MD Dow, Douglas MD Goldsmith, William W DO Kamana, Mallika MD Merritt,Tab Brown MD, MDORDERED: GM LEVEL 4 CODES: [id number] - LUNG, NOS COPIESTO: Self Referred Alexandra Carvajal MD [address] [facility] [place] [place] [address] [place] [address] [facility] [address], [facility] [address] [place] [address] Rah Cueva MD [address] [place] [phone] Alphonso Gonsalez MD [address] [facility] [address] [place] [phone] Vipul Fox DO [address] [place] [address] Criselda Salinas MD [address] [facility] [place] [address] CONTINUED ON NEXT PAGE RUN DATE: 07/02/18 [facility] *LIVE* PAGE 2 RUN TIME: 1226 Specimen Inquiry RUN USER: INTERFACE SPEC #: [id number] PATIENT: YASH CLINTON #[id number] (Continued) COPIES TO: (Continued) Marcia Santana MD [address] [place] [address] [email or web address] Tab Nguyễn MD [address] [place] [address] PROCEDURES: GM LEVEL 4 (Incomplete) TISSUES: 1. 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 Lesion of plantar nerve, [...]
[2019-08-15 13:53] LABS: Urine Blood 1+ (NEG); Urine Glucose NEGATIVE (NEG); Urine Protein 2+ (NEG); Urine Specific Gravity 1.015 (1.005-1.030)
[2019-08-15] MEDS ORDERED: MORPHINE 4 MG/ML SYR ONE ×2 (14:05→15:30)
[2019-08-15] MEDS ORDERED: ONDANSETRON 4 MG/2 ML VIAL ONE (14:05)
--- NOTE | 2019-08-15 14:22 | RAD REPORT ---
EXAM DESCRIPTION: CT - Stone Protocol - 08/15/2019 2:12 pm CLINICAL HISTORY: Flank pain. FLANK PAIN COMPARISON: Abdomen W Contrast dated 10/22/2018 TECHNIQUE: Axial images were obtained without oral or IV contrast. Lack of contrast limits solid org an and vascular assessment. The xalra-at-vjzu spans the entirety of the system partially obscuring uppermost abdomen and lung bases. Coronal reformatted images were obtained and reviewed. All CT scans are performed using dose optimization technique as appropriate and may include automated exposure control or mA/KV adjustment according to patient size. FINDINGS: Emphysematous changes are present in both lung bases. Possible cholelithiasis. Imaged portions of the liver and spleen show no suspicious findings on non-contrast imaging. The panc reas and adrenal glands are normal. No pathologic lymphadenopathy in the abdomen or pelvis. No urinary tract stones or obstructive uropathy. 4 cm left renal cyst. No bowel obstruction, free air, free fluid or abscess. The appendix is not identified as a discrete s tructure, however, no secondary findings of appendicitis are identified. No significant bony abnormality. The urinary bladder appears quite distended. Prostate gland is enlar ged. IMPRESSION: Prominent distention of the urinary bladder with prostatomegaly seen. A component of nikunj dder outlet obstruction is possible. Possible cholelithiasis.
[2019-08-15 14:24] LABS: Absolute Lymphocytes (CBC) 1.5 K/uL (0.7-4.9); Basophils % 0.4 % (0-1.3); Hematocrit 36.8 % (39.6-49.0); Lymphocytes % 12.9 % (15.3-44.8); MPV 8.1 fL (7.6-11.3); RBC Red Blood Cell Count 4.05 M/uL (4.33-5.43); Urine Bacteria >50 /HPF (NONE SEEN); Urine Culture Reflex Order REFLEXED; Urine RBC <5 /HPF (NONE SEEN)
[2019-08-15 14:34] LABS: Potassium 3.8 mmol/L (3.5-5.1)
--- NOTE | 2019-08-15 15:11 | EDPHYS ---
Physician Documentation [facility] Name: Corey Morgan Age: 69 yrs Sex: Male : 1950 Arrival Date: 08/15/2019 Time: 13:20 Bed 14 Private MD: ED Physician Ike Ornelas HPI: 08/15 14:07 This 69 yrs old Male presents to ER via Ambulatory with complaints of Urinary kb Problem. 14:11 The patient presents with urinary symptoms, dysuria, difficulty urinating. Onset: The kb symptoms/episode began/occurred 3 day(s) ago. Modifying factors: The symptoms are alleviated by nothing, the symptoms are aggravated by nothing. Associated signs and symptoms: Pertinent positives: dysuria, fever, Pertinent negatives: abdominal pain, constipation, diarrhea, hematuria, nausea, vomiting. Severity of symptoms: At their worst the symptoms were moderate, in the emergency department the symptoms are unchanged. The patient has not experienced similar symptoms in the past. The patient has not recently seen a physician. Pt reports he has had dysuria, difficulty urinating, fever and chills for 3 days. Had a cardiac ablasion 9 days ago and had a sebastian at that time. . Historical: - Allergies: 13:40 Seroquel; rb1 - Home Meds: 13:40 alpha lipoic acid 600 mg oral cap nightly [Active]; alprazolam 1 mg Oral tab 1 tab rb1 twice a day [Active]; amiodarone 200 mg Oral tab 1 tab 2 times per day [Active]; aspirin 81 mg Oral chew 1 tab once daily [Active]; carvedilol 6.25 mg oral tab 1 tab 2 times per day [Active]; Eliquis 5 mg oral tab 1 tab 2 times per day [Active]; Famotidine Oral once daily [Active]; Folic Acid Oral once daily [Active]; furosemide 40 mg Oral tab 1 tab 2 times per day [Active]; gabapentin 300 mg oral cap 1 cap 3 times per day [Active]; ipatropium albuterol [Active]; DuoNeb Inhl [Active]; Methotrexate (Anti-Rheumatic) 15 mg Oral 15 mg once a week [Active]; mirtazapine 30 mg Oral TbDL 1 tab once daily [Active]; Mucinex oral oral daily [Active]; multivitamin oral oral [Active]; [place] 10-325 mg Oral tab 1 tab every 6 hours [Active]; Omeprazole Oral once daily [Active]; pantoprazole 40 mg oral TbEC 1 tab once daily [Active]; Probiotic oral oral daily [Active]; sildenafil oral 100 mg oral PRN [Active]; sucralfate 1 gram Oral tab 1 tab 2 times per day [Active]; tamsulosin 0.4 mg oral cp24 1 cap once daily [Active]; Testosterone 200 mg Injection/week [Active]; Trelegy 1 puff daily [Active]; - PMHx: 13:40 COPD; Emphysema; enlarged prostate; Ablation; rb1 - PSHx: 13:40 PEG tube \T\ removal; Trach \T\ removal; foot; right arm; shoulder; nose; rb 1 - Immunization history:: Adult Immunizations up to date. - Coronavirus screen:: The patient has NOT traveled to [place], [place], or [place] in the past 14 days. The patient has NOT had contact with known/suspected case of Coronavirus?. - Social history:: Smoking status: Reported history of juuling and/or vaping. - Ebola Screening: : Patient negative for fever greater than or equal to 101.5 degrees Fahrenheit, and additional compatible Ebola Virus Disease symptoms. ROS: 14:05 ENT: Negative for injury, pain, and discharge, Neck: Negative for injury, pain, and kb swelling, Cardiovascular: Negative for chest pain, palpitations, and edema, Respiratory: Negative for shortness of breath, cough, wheezing, and pleuritic chest pain, Abdomen/GI: Negative for abdominal pain, nausea, vomiting, diarrhea, and constipation, MS/Extremity: Negative for injury and deformity, Skin: Negative for injury, rash, and discoloration, Neuro: Negative for headache, weakness, numbness, tingling, and seizure. 14:05 Back: Positive for flank pain, on the left. 14:05 : Positive for difficulty urinating. 14:14 Constitutional: Positive for chills, fever. kb Exam: 14:06 Constitutional: This is a well developed, well nourished patient who is awake, alert, kb and in no acute distress. Head/Face: Normocephalic, atraumatic. Neck: Trachea midline, no thyromegaly or masses palpated, and no cervical lymphadenopathy. Supple, full range of motion without nuchal rigidity, or vertebral point tenderness. No Meningismus. Chest/axilla: Normal chest wall appearance and motion. Nontender with no deformity. No lesions are appreciated. Cardiovascular: Regular rate and rhythm with a normal S1 and S2. No gallops, murmurs, or rubs. Normal PMI, no JVD. No pulse deficits. Respiratory: Lungs have equal breath sounds bilaterally, clear to auscultation and percussion. No rales, rhonchi or wheezes noted. No increased work of breathing, no retractions or nasal flaring. Abdomen/GI: Soft, non-tender, with normal bowel sounds. No distension or tympany. No guarding or rebound. No evidence of tenderness throughout. Skin: Warm, dry with normal turgor. Normal color with no rashes, no lesions, and no evidence of cellulitis. MS/ Extremity: Pulses equal, no cyanosis. Neurovascular intact. Full, normal range of motion. Neuro: Awake and alert, GCS 15, oriented to person, place, time, and situation. Cranial nerves II-XII grossly intact. Motor strength 5/5 in all extremities. Sensory grossly intact. Cerebellar exam normal. Normal gait. 14:06 Back: pain, that is mild, of the left flank, CVA tenderness, that is mild, is noted on the left. Vital Signs: 13:40 BP 146 / 84; Pulse 84; Resp 19; Temp 98.3(TE); Pulse Ox 95% on R/A; Weight 64.86 kg rb1 (R); Height 5 ft. 6 in. (167.64 cm) (R); 14:28 BP 133 / 81; Pulse 78; Resp 18; Temp 98.1(O); Pulse Ox 97% on R/A; mh5 15:31 BP 135 / 84; Pulse 80; Resp 18; Pulse Ox 96% on R/A; mh5 13:40 Body Mass Index 23.08 (64.86 kg, 167.64 cm) rb1 MDM: 13:38 Patient medically screened. pm1 14:05 Data reviewed: vital signs, nurses notes. Data interpreted: Pulse oximetry: on room air kb is 95 %. Interpretation: normal. 15:03 Data reviewed: lab test result(s), radiologic studies, CT scan. Counseling: I had a kb detailed discussion with the patient and/or guardian regarding: the historical points, exam findings, and any diagnostic results supporting the discharge/admit diagnosis, lab results, radiology results, the need for outpatient follow up, a urologist, to return to the emergency department if symptoms worsen or persist or if there are any questions or concerns that arise at home. 15:04 ED course: PVR 282. Pt does not feel the urge to urinate at this time and has no kb bladder pain. States he would rather try the antibiotics without getting a sebastian and follow up with urology. Cefpodoxime will be prescribed for UTI and possible prostatitis. Fluoroquinolones will not be given due to possible interaction with pt's home medications, specifically amniodorone. Pt educated to return for worsening pain, inability to urinate, overflow incontinence or any other concerns. Verbal understanding of all information received. . 08/15 13:40 Order name: Urine Dipstick--Ancillary (enter results); Complete Time: 13:56 ss 08/15 13:49 Order name: Urine Microscopic Only; Complete Time: 14:31 kb 08/15 13:49 Order name: CBC with Diff; Complete Time: 14:39 kb 08/15 13:49 Order name: Basic Metabolic Panel; Complete Time: 14:39 kb 08/15 13:49 Order name: CT Stone Protocol; Complete Time: 14:31 kb 08/15 14:25 Order name: Urine Culture EDMN 08/15 13:40 Order name: Urine Dipstick-Ancillary (obtain specimen); Complete Time: 13:40 ss 08/15 13:49 Order name: IV Start; Complete Time: 14:25 kb 08/15 14:43 Order name: Bladder Scanner; Complete Time: 14:55 kb Administered Medications: 13:56 Drug: morphine 4 mg {Note: RASS 0.} Route: IVP; Site: right forearm; vc 14:47 Follow up: Response: No adverse reaction vc 13:58 Drug: Zofran 4 mg Route: IVP; Site: right forearm; vc 14:47 Follow up: Response: No adverse reaction vc 15:45 Drug: Rocephin 2 grams Route: IV; Rate: calculated rate; Site: right antecubital; vc 15:45 Drug: morphine 4 mg Route: IVP; Site: right antecubital; vc Disposition: 17:40 Co-signature as Attending Physician, Ike Ornelas MD. rn Disposition: 08/15/19 15:09 Discharged to Home. Impression: Urinary tract infection, site not specified, Enlarged prostate. - Condition is Stable. - Discharge Instructions: Urinary Tract Infection, Adult, [id number], Prostatitis, [id number]. - Prescriptions for cefpodoxime 200 mg Oral Tablet - take 1 tablet by ORAL route every 12 hours for 14 days with food; 28 tablet. - Medication Reconciliation Form, Thank You Letter, Antibiotic Education, Prescription Opioid Use form. - Follow up: Emergency Department; When: As needed; Reason: Worsening of condition. Follow up: Private Physician; When: 2 - 3 days; Reason: Recheck today's complaints, Continuance of care, Re-evaluation by your physician. Follow up: Milton Alatorre MD; When: 2 - 3 days; Reason: Recheck today's complaints. - Notes: Call Dr Alatorre's office (or other urologist if preferred) to set up appt for this week for follow up. Return for inability to urinate, increased pain or any other symptoms Signatures: Dispatcher [employer] EDMS Zohreh Dunlap, SEATER GRINDER-C SEATER GRINDER-Ckb Ike Ornelas MD MD rn Smirch, Shelby, RN RN ss Renetta Chapa RN RN rb1 Jesus Diego NP SCIENTIFIC EDITOR pm1 Janee Irving RN RN vc Corrections: (The following items were deleted from the chart) 14:14 14:05 Constitutional: Negative for fever, chills, and weight loss, ENT: Negative for kb injury, pain, and discharge, Neck: Negative for injury, pain, and swelling, Cardiovascular: Negative for chest pain, palpitations, and edema, Respiratory: Negative for shortness of breath, cough, wheezing, and pleuritic chest pain, Abdomen/GI: Negative for abdominal pain, nausea, vomiting, diarrhea, and constipation, MS/Extremity: Negative for injury and deformity, Skin: Negative for injury, rash, and discoloration, Neuro: Negative for headache, weakness, numbness, tingling, and seizure, kb 16:14 15:09 08/15/2019 15:09 Discharged to Home. Impression: Urinary tract infection, site vc not specified; Enlarged prostate. Condition is Stable. Forms are Medication Reconciliation Form, Thank You Letter, Antibiotic Education, Prescription Opioid Use. Follow up: Emergency Department; When: As needed; Reason: Worsening of condition. Follow up: Private Physician; When: 2 - 3 days; Reason: Recheck today's complaints, Continuance of care, Re-evaluation by your physician. Follow up: Milton Alatorre; When: 2 - 3 days; Reason: Recheck today's complaints. kb
--- NOTE | 2019-08-15 15:11 | ER ---
Nurse's Notes [facility] Name: Corey Morgan Age: 69 yrs Sex: Male : 1950 Arrival Date: 08/15/2019 Time: 13:20 Bed 14 Private MD: Diagnosis: Urinary tract infection, site not specified;Enlarged prostate Presentation: 08/15 13:40 Presenting complaint: Patient states: Difficulty urinating. Transition of care: patient rb1 was not received from another setting of care. Risk Assessment: Do you want to hurt yourself or someone else? Patient reports no desire to harm self or others. Initial Sepsis Screen: Does the patient meet any 2 criteria? No. Patient's initial sepsis screen is negative. 13:40 Method Of Arrival: Ambulatory rb1 13:40 Acuity: JAKE 3 rb1 13:50 Onset of symptoms was August 15, 2019. Initial Sepsis Screen: Does the patient have a vc suspected source of infection? No. Patient's initial sepsis screen is negative. Care prior to arrival: None. Triage Assessment: 13:40 General: Appears in no apparent distress. comfortable, Behavior is calm, cooperative. rb1 General: Reports fever for Max Temp 101.7. Neuro: Level of Consciousness is awake, alert, obeys commands, Oriented to person, place, time, situation. Respiratory: Airway is patent Respiratory effort is even, unlabored, Respiratory pattern is regular, symmetrical. : Reports Difficulty urinating. : Reports Will sometimes have a BM while urinating. 13:40 General: Had an ablation nine days ago. rb1 Historical: - Allergies: 13:40 Seroquel; rb1 - Home Meds: 13:40 alpha lipoic acid 600 mg oral cap nightly [Active]; alprazolam 1 mg Oral tab 1 tab rb1 twice a day [Active]; amiodarone 200 mg Oral tab 1 tab 2 times per day [Active]; aspirin 81 mg Oral chew 1 tab once daily [Active]; carvedilol 6.25 mg oral tab 1 tab 2 times per day [Active]; Eliquis 5 mg oral tab 1 tab 2 times per day [Active]; Famotidine Oral once daily [Active]; Folic Acid Oral once daily [Active]; furosemide 40 mg Oral tab 1 tab 2 times per day [Active]; gabapentin 300 mg oral cap 1 cap 3 times per day [Active]; ipatropium albuterol [Active]; DuoNeb Inhl [Active]; Methotrexate (Anti-Rheumatic) 15 mg Oral 15 mg once a week [Active]; mirtazapine 30 mg Oral TbDL 1 tab once daily [Active]; Mucinex oral oral daily [Active]; multivitamin oral oral [Active]; [place] 10-325 mg Oral tab 1 tab every 6 hours [Active]; Omeprazole Oral once daily [Active]; pantoprazole 40 mg oral TbEC 1 tab once daily [Active]; Probiotic oral oral daily [Active]; sildenafil oral 100 mg oral PRN [Active]; sucralfate 1 gram Oral tab 1 tab 2 times per day [Active]; tamsulosin 0.4 mg oral cp24 1 cap once daily [Active]; Testosterone 200 mg Injection/week [Active]; Trelegy 1 puff daily [Active]; - PMHx: 13:40 COPD; Emphysema; enlarged prostate; Ablation; rb1 - PSHx: 13:40 PEG tube \T\ removal; Trach \T\ removal; foot; right arm; shoulder; nose; rb 1 - Immunization history:: Adult Immunizations up to date. - Coronavirus screen:: The patient has NOT traveled to [place], [place], or [place] in the past 14 days. The patient has NOT had contact with known/suspected case of Coronavirus?. - Social history:: Smoking status: Reported history of juuling and/or vaping. - Ebola Screening: : Patient negative for fever greater than or equal to 101.5 degrees Fahrenheit, and additional compatible Ebola Virus Disease symptoms. Screenin:40 Abuse screen: Denies threats or abuse. Nutritional screening: No deficits noted. vc Tuberculosis screening: No symptoms or risk factors identified. Fall Risk None identified. Assessment: 14:00 General: Appears in no apparent distress. uncomfortable, Behavior is calm, cooperative, vc appropriate for age. Pain: Complains of pain in left flank. Neuro: Level of Consciousness is awake, alert, obeys commands, Oriented to person, place, time. Cardiovascular: Capillary refill < 3 seconds Patient's skin is warm and dry. Respiratory: Respiratory effort is even, unlabored, Respiratory pattern is regular, symmetrical. GI: No signs and/or symptoms were reported involving the gastrointestinal system. : Reports inability to void. EENT: No signs and/or symptoms were reported regarding the EENT system. EENT: No signs and/or symptoms were reported regarding the EENT system. Throat congestion. Reports nasal congestion. Derm: Skin temperature is warm. Musculoskeletal: Circulation, motion, and sensation intact. Range of motion: intact in all extremities. 15:00 Reassessment: Patient and/or family updated on plan of care and expected duration. Pain vc level reassessed. Patient is alert, oriented x 3, equal unlabored respirations, skin warm/dry/pink. 16:00 Reassessment: Patient and/or family updated on plan of care and expected duration. Pain vc level reassessed. Patient is alert, oriented x 3, equal unlabored respirations, skin warm/dry/pink. Patient denies pain at this time. Patient states feeling better. Patient states symptoms have improved. Vital Signs: 13:40 BP 146 / 84; Pulse 84; Resp 19; Temp 98.3(TE); Pulse Ox 95% on R/A; Weight 64.86 kg rb1 (R); Height 5 ft. 6 in. (167.64 cm) (R); 14:28 BP 133 / 81; Pulse 78; Resp 18; Temp 98.1(O); Pulse Ox 97% on R/A; mh5 15:31 BP 135 / 84; Pulse 80; Resp 18; Pulse Ox 96% on R/A; mh5 13:40 Body Mass Index 23.08 (64.86 kg, 167.64 cm) rb1 ED Course: 13:20 Patient arrived in ED. ag5 13:38 Jesus Diego NP is PHCP. pm1 13:38 Ike Ornelas MD is Attending Physician. pm1 13:40 Zohreh Dunlap FNP-C is PHCP. pm1 13:40 Arm band placed on right wrist. rb1 13:43 Janee Irving RN is Primary Nurse. vc 13:55 Inserted saline lock: 20 gauge in right forearm, using aseptic technique. Blood vc collected. 14:05 Triage completed. rb1 14:12 CT completed. Patient tolerated procedure well. bq 14:13 CT Stone Protocol In Process Unspecified. EDMS 14:29 Patient has correct armband on for positive identification. Bed in low position. Call 5 light in reach. Side rails up X 1. Adult w/ patient. Pulse ox on. NIBP on. 14:54 Bladder scan completed. 282. mh5 14:56 Urine Culture Sent. 5 15:09 Milton Alatorre MD is Referral Physician. kb 16:10 No provider procedures requiring assistance completed. vc 16:10 IV discontinued, intact, bleeding controlled, No redness/swelling at site. Pressure vc dressing applied. Administered Medications: 13:56 Drug: morphine 4 mg {Note: RASS 0.} Route: IVP; Site: right forearm; vc 14:47 Follow up: Response: No adverse reaction vc 13:58 Drug: Zofran 4 mg Route: IVP; Site: right forearm; vc 14:47 Follow up: Response: No adverse reaction vc 15:45 Drug: Rocephin 2 grams Route: IV; Rate: calculated rate; Site: right antecubital; vc 15:45 Drug: morphine 4 mg Route: IVP; Site: right antecubital; vc Outcome: 15:09 Discharge ordered by MD. kb 16:10 Discharged to home ambulatory, with family. vc 16:10 Condition: good 16:10 Discharge instructions given to patient, Instructed on discharge instructions, follow up and referral plans. medication usage, Demonstrated understanding of instructions, follow-up care, medications, Prescriptions given X 1. 16:14 Patient left the ED. vc Addendum: 08/18/2019 11:27 Addendum: Culture Results: Positive urine culture. Bacteria is resistant to, has i w intermediate sensitivity, or is not tested against prescribed antibiotics. Report given to JOAQUIN for further evaluation and then to nut grinder for follow up with patient. Phone call Attempt #1 pt states his symptoms have improved greatly, was seen at [place] yesterday and will make appt with Dr. Alatorre this week. Signatures: Dispatcher [employer] EDVT Zohreh Dunlap, VP OF DIGITAL MARKETING-C VP OF DIGITAL MARKETING-Ruby Terrazas Irene, RN RN iw Barber, Rebecca, RN RN rb1 Marinas, Patrick, HUNTER HOME DELIVERY DRIVER pm1 Geraldine Bush 5 Sari Villagomez 5 Janee Irving RN RN vc
[2019-08-15] MEDS ORDERED: CEFTRIAXONE/SWI 1gm 2 GM/20 ML SYR ONE (15:31)
[2019-08-15 16:34] VITALS: TEMP 98.1
[2019-08-15 16:36] VITALS: BP 135/84; O2SAT 96
== END 2019-08-15 16:14 | disposition home or self-care (01) ==
LOC: ER 13:18
DX: N39.0 Urinary tract infection, site not specified (principal); N40.0 Benign prostatic hyperplasia without lower urinary tract symptoms; Z88.8 Allergy status to other drugs, medicaments and biological substances; J44.9 Chronic obstructive pulmonary disease, unspecified
CPT/HCPCS: 87088; 85025; 87086; 80048; 36415; 87077; 87186; 76377; 74176; 99284; J0696; J2405; 81003; 81015